=== PATIENT | male | born 1935 | race Caucasian/White ===

== ENCOUNTER → 2016-11-13 | Outpatient (CLI) | payer MEDICARE, OTHER ==
[~2016-11-13] MED LIST: BENA5TAB2; CETI1SYR3; DOXA1TAB38; EZET1TAB9; MONT4TAB7; OMEP10CA2; OXYC5CAP17; UBID30CA12; VENL25TA17
--- NOTE | 2016-11-14 11:51 | RADRPT ---
PROCEDURE: XR bilateral knees. CLINICAL INDICATION: Knee pain. TECHNIQUE: AP weightbearing, lateral weightbearing and sunrise views are available for review. COMPARISON: 09/05/2014 FINDINGS: There are bilateral total knee replacements. There is no evidence of loosening of the prosthesis. Th e osseous structures are normal in mineralization, architecture and alignment No acute fracture or d islocation is seen.No osseous lesions are identified. The soft tissues are unremarkable . IMPRESSION: Unremarkable bilateral total hip replacements. RPTAT: HGDB .Jacob Rojas MD, MD Date Time Electronically viewed and signed by .Jacob Rojas MD, MD on 11/14/2016 11:50 .B/
--- NOTE | 2016-11-14 11:53 | RADRPT ---
PROCEDURE: XR pelvis/right hip. CLINICAL INDICATION: Hip pain TECHNIQUE: AP pelvis/AP and lateral right hip views performed COMPARISON: No prior studies are available for comparison. FINDINGS: There is moderate bilateral hip osteoarthrosis. This is associated with joint space narrowing, subch ondral sclerosis and osteophytosis. There is normal mineralization. No fractures or osseous lesion s are identified. The soft tissues are unremarkable. IMPRESSION: Moderate bilateral hip osteoarthrosis. RPTAT: HGDB .Jacob Rojas MD, Date Time Electronically viewed and signed by .Jacob Rojas MD, on 11/14/2016 11:52 .B/
== END | disposition home or self-care (01) ==
LOC: HKI 13:13
PROVIDERS: ATTEND Orthopaedic Surgery
DX: M51.36 Other intervertebral disc degeneration, lumbar region (principal); M54.16 Radiculopathy, lumbar region; M48.06 Spinal stenosis, lumbar region; M25.561 Pain in right knee; M25.562 Pain in left knee; Z96.653 Presence of artificial knee joint, bilateral
CPT/HCPCS: 73502; 73562; G0463

== ENCOUNTER → 2016-11-19 | Outpatient (CLI) | payer MEDICARE, OTHER ==
--- NOTE | 2016-11-19 16:01 | RADRPT ---
PROCEDURE: Three-phase bone scan study CLINICAL INDICATION: 81-year-old patient with right knee and right hip pain, status post bilateral knee replacement. TECHNIQUE: Following the intravenous injection of 26.3 mCi of Tc-99m MDP, a three-phase bone scan study of the knees to bilaterally was obtained. COMPARISON: No prior bone scan studies. X-ray of the knees and hips bilaterally dated November 13, 2016. FINDINGS: Blood flow phase of the study demonstrates symmetrical distribution of activity in the knees bilater ally. Blood pooling images reveal symmetrical distribution of uptake in both knees and hips. Delayed images of both knees and hips demonstrate evidence of a bilateral knee replacement with mild ly asymmetrical increased activity noted in the region of the patella in the right knee. Spot images of both hips demonstrate minimal asymmetry in activity in the right acetabulum as compar ed to the left. Mildly increased activity is seen in the lower lumbar spine, at approximately L5-S1 level, to the ri ght of the midline. IMPRESSION: 1. Evidence of the right knee replacement with mildly increased tracer activity noted in the right patella. 2. Evidence of a left knee replacement with likely postsurgical changes. 3. Questionable minimal increase in activity in the right acetabulum and mildly increased activity at approximately L5-S1 lumbar spine, to the right of the midline, likely due to degenerative changes . 4. No other abnormal areas of increased uptake in the obtained limited views of both knees and hips . RPTAT: HH .Dionne Pereira MD, Date Time Electronically viewed and signed by .Dionne Pereira MD, on 11/19/2016 16:00 .L/
== END | disposition home or self-care (01) ==
LOC: NUC 09:44
PROVIDERS: ATTEND Orthopaedic Surgery
DX: M25.561 Pain in right knee (principal); M25.551 Pain in right hip; Z96.641 Presence of right artificial hip joint
CPT/HCPCS: 78315; A9503

== ENCOUNTER → 2016-12-02 | Outpatient (CLI) | payer MEDICARE, OTHER | END | disposition home or self-care (01) | LOC: HKI 11:01 | PROVIDERS: ATTEND Orthopaedic Surgery | DX: M51.36 Other intervertebral disc degeneration, lumbar region (principal); M54.16 Radiculopathy, lumbar region; M48.06 Spinal stenosis, lumbar region; M16.11 Unilateral primary osteoarthritis, right hip; Z96.653 Presence of artificial knee joint, bilateral; M25.551 Pain in right hip; M25.561 Pain in right knee | CPT/HCPCS: G0463 ==

== ENCOUNTER → 2017-01-04 | Outpatient (CLI) | payer MEDICARE, OTHER | END | disposition home or self-care (01) | LOC: HKI 09:18 | PROVIDERS: ATTEND Orthopaedic Surgery | DX: M16.11 Unilateral primary osteoarthritis, right hip (principal); M25.551 Pain in right hip; M25.561 Pain in right knee; Z96.653 Presence of artificial knee joint, bilateral | CPT/HCPCS: G0463 ==

== ENCOUNTER → 2017-02-17 | Outpatient (CLI) | payer MEDICARE, OTHER | END | disposition home or self-care (01) | LOC: HKI 10:17 | PROVIDERS: ATTEND Orthopaedic Surgery | DX: Z01.818 Encounter for other preprocedural examination (principal); M16.11 Unilateral primary osteoarthritis, right hip | CPT/HCPCS: G0463 ==

== ENCOUNTER 2017-02-25 05:34 | Inpatient (IN) | payer OTHER, MEDICARE ==
[2017-02-24 08:44] VITALS: BMI 35.1
[2017-02-25] VITALS (40 sets, daily range): BP systolic 86–143; BP diastolic 49–93; PULSE 63–110; RESP 10–18; Ht 193 cm; Wt 124.5 kg
[~2017-02-25] VITALS: Ht 193 cm; Wt 124.5 kg
[~2017-02-25 05:34] MED LIST changes: +EXPAREL NOTE (BUPIVICAINE LIPOSOMAL) XX SCH
[2017-02-25] MEDS ORDERED: PENT400T2 PO (05:54)
[2017-02-25] MEDS ORDERED: TAMS0.4C2 PO (05:54)
[2017-02-25] MEDS ORDERED: SENN15TA PO (05:54)
[2017-02-25] MEDS ORDERED: MUPI15CR9 TOP (05:54)
[2017-02-25] MEDS ORDERED: TRAM100T27 PO (05:54)
[2017-02-25] MEDS ORDERED: TRAM1TAB51 PO (05:54)
[2017-02-25] MEDS ORDERED: TEMA15CA PO (05:54)
[2017-02-25] MEDS ORDERED: VENL150C94 PO (05:54)
[2017-02-25] MEDS ORDERED: ATOR20TA38 PO (05:54)
[2017-02-25] MEDS ORDERED: SYMB80120 INHALATION (05:54)
[2017-02-25] MEDS ORDERED: TIOT18CA INHALATION (05:54)
[2017-02-25] MEDS ORDERED: RIVA20TA PO (05:54)
[2017-02-25] MEDS ORDERED: POTA20LI5 PO (05:54)
[2017-02-25] MEDS ORDERED: ESOM40CA PO (05:54)
[2017-02-25] MEDS ORDERED: MONT10TA24 PO (05:54)
[2017-02-25] MEDS ORDERED: ALLO100T PO (05:54)
[2017-02-25] MEDS ORDERED: SPIR100T31 PO (05:54)
[2017-02-25] MEDS ORDERED: GUAI-602 PO (05:54)
[2017-02-25] MEDS ORDERED: OXYM15SP34 NASAL (05:54)
[2017-02-25] MEDS ORDERED: METO-429 PO (05:54)
[2017-02-25] MEDS ORDERED: BUME0.5T PO (05:54)
[2017-02-25] MEDS ORDERED: LAMO150T PO (05:54)
[2017-02-25] MEDS ORDERED: TOBR5DRO14 BOTH EYES (05:54)
[2017-02-25] MEDS ORDERED: LAMO100T PO (05:54)
[2017-02-25] MEDS ORDERED: PAIN COCKTAIL-CEFUROXIME IRR ONE ×7 (06:00)
[2017-02-25] MEDS ORDERED: TRANEXAMIC ACID IV ONE (06:00)
[2017-02-25] MEDS ORDERED: oxyCODONE (CR) 10 MG TAB [oxyCONTIN] X1 DOSE PO ONE (06:00)
[2017-02-25] MEDS ORDERED: TRANEXAMIC ACID IVPB ONE ×3 (06:00→16:30)
[2017-02-25] MEDS ORDERED: PREGABALIN 300 MG PO X1 PO ONE (06:00)
[2017-02-25] MEDS ORDERED: SOD CHLORIDE 0.9% IV ONE (06:00)
[2017-02-25] MEDS ORDERED: CEFAZOLIN 2GM/50 ML (PMX) 50 ML X1 BEFORE INCISION IVPB ONE (06:00)
[2017-02-25] MEDS ORDERED: CELECOXIB 400 MG PO X1 DOSE PO ONE (06:00)
[2017-02-25] MEDS ORDERED: SOD CHLORIDE 0.9% IVPB ONE ×3 (06:00→16:30)
[2017-02-25] MEDS ORDERED: BUPIVACAINE LIPOSOME/PF 266 MG/20 ML VIAL INFIL ONE (06:00)
[2017-02-25] MEDS ORDERED: traMADOL 50 MG TAB X 1 DOSE PO ONE (06:00)
[2017-02-25 06:17] LABS: INR 1.2; PROTIME 15.3 Sec (12.2-14.2); PT RATIO 1.2
[2017-02-25 06:18] LABS: PARTIAL THROMBOPLASTIN TIME 33.9 Sec (25.0-35.0)
[2017-02-25] MEDS: LACTATED RINGER'S 1,000 ML IV SCH ×4 (06:22→18:09)
[2017-02-25] MEDS ORDERED: HEPARIN 1000 UNITS/ML 10 ML INJ ONE (07:02)
[2017-02-25] MEDS ORDERED: POLYMYXIN B 500000 UNIT INJ ONE (07:02)
[2017-02-25] MEDS ORDERED: VANCOMYCIN 1 GM INJ ONE (07:02)
--- NOTE | 2017-02-25 07:04 | HPN ---
Date/Time of Note Date/Time of Note DATE: 02/25/17 TIME: 07:04 Interval H&P Admission Note Pt. seen H&P reviewed: No system changes No change from H&P on 02/04/17 by KRISTINA Aaron MD February 25, 2017 07:04
[2017-02-25] MEDS ORDERED: FENTAnyl 50 MCG/ML VIAL ONE (07:13)
[2017-02-25] MEDS ORDERED: MIDAZOLAM 1 MG/ML 2 ML INJ ONE (07:39)
[2017-02-25] MEDS ORDERED: PHENYLephrine (100 MCG/ML) 5ML SYG ONE ×2 (07:40→08:33)
[2017-02-25] MEDS ORDERED: EPHEDrine SULFATE 50 MG/5 ML SYG ONE ×4 (07:50→13:03)
[2017-02-25] MEDS ORDERED: LIDOCAINE 2% (SDV) 5 ML INJ ONE (07:50)
[2017-02-25] MEDS ORDERED: PROPOFOL 100 ML ONE (07:50)
[2017-02-25] MEDS ORDERED: BACITRACIN 50000 UNITS INJ IRR ONE (08:15)
[2017-02-25] MEDS ORDERED: CEFAZOLIN 1 GM INJ ONE (09:34)
[2017-02-25] MEDS ORDERED: FAMOTIDINE 20 MG INJ ONE (09:36)
[2017-02-25] MEDS ORDERED: ONDANSETRON 4 MG INJ ONE (09:36)
[2017-02-25] MEDS ORDERED: DEXAMETHASONE 4 MG/ML 1 ML INJ ONE (09:36)
[2017-02-25] MEDS ORDERED: FENTAnyl 50 MCG/ML VIAL IV PRN (10:00)
[2017-02-25] MEDS ORDERED: MEPERIDINE 25 MG INJ IV PRN (10:00)
[2017-02-25] MEDS ORDERED: PROCHLORPERAZINE 10 MG INJ IV PRN (10:00)
[2017-02-25] MEDS ORDERED: ONDANSETRON 4 MG INJ IV PRN ×2 (10:00→10:30)
[2017-02-25] MEDS ORDERED: HYDROmorphONE (0.2 MG/ML) 10ML SYG IV PRN (10:00)
[2017-02-25] MEDS ORDERED: MAGNESIUM HYDROXIDE 30ML CUP PO PRN (10:30)
[2017-02-25] MEDS ORDERED: NA PHOSPHATE/BIPHOS 133 ML ENEMA PR PRN (10:30)
[2017-02-25] MEDS ORDERED: HYDROmorphONE 1 MG/ML SYG IV PRN (10:30)
[2017-02-25] MEDS ORDERED: NACL 0.9% 3 ML SYG IV SCH (10:30)
[2017-02-25] MEDS ORDERED: BISACODYL 10 MG SUPP PR PRN (10:30)
--- NOTE | 2017-02-25 10:31 | OPR ---
Date/Time of Note Date/Time of Note DATE: 02/25/17 TIME: 10:26 Operative Report Free Text/Dictation Dictation # [id number] Procedure Date: February 25, 2017 Preoperative Diagnosis Right Hip OA Postoperative Diagnosis Same Operation Performed Right Anterior MATT Surgeon: KRISTINA ESPINOZA MD occupational therapist assistant: ZEENAT PINO PA-C Anesthesia: general, spinal Anesthesiologist: CRISELDA NEELY MD Estimated Blood Loss: other Specimens Femoral Head Tubes/Drains Hemovac x 1 Complications: None Pt Condition Post Procedure: stable Disposition: PACU KRISTINA ESPINOZA MD February 25, 2017 10:31
[2017-02-25] MEDS: CEFAZOLIN 2 GM/50 ML (PMX) 50 ML IVPB SCH ×2 (11:01→18:03)
--- NOTE | 2017-02-25 11:05 | OPR ---
DATE OF OPERATION: 02/25/2017 PREOPERATIVE DIAGNOSIS: Right hip osteoarthritis. POSTOPERATIVE DIAGNOSIS: Right hip osteoarthritis. OPERATION PERFORMED: Right anterior total hip arthroplasty. SURGEON: Kristina Tovar MD MILK RUNNER: CLARISSA Fine COMPONENTS USED: DePuy size 58 mm Gription [place] cup, 58/36 neutral AltrX polyethylene liner, si ze 11 standard Actis stem, 36 plus 8.5 ceramic head. ANESTHESIA: Spinal plus general endotracheal intubation, plus periarticular injection. ANESTHESIOLOGIST: Ellen Wills MD ESTIMATED BLOOD LOSS: 400 mL. INTRAVENOUS FLUIDS: 2300 mL of crystalloid plus 125 mL of autologous Cell Saver blood. SPECIMENS: Femoral head. DRAINS: Hemovac x1. COMPLICATIONS: None. DISPOSITION: The patient tolerated the procedure well and was taken to the recovery room in stable condition. INDICATIONS: The patient is a 81-year-old gentleman who has had progressive worsening pain in the r ight hip with radiographic evidence of osteoarthritis. He has failed nonsurgical means of treatment to control his pain including activity modifications, pain medications and ambulatory assist device s. Despite these measures, he has had worsening pain, and I felt he would benefit from a total hip arthroplasty through an anterior approach. The risks, benefits, and alternatives of the procedure were explained in detail to the patient. I e xplained the risks of the surgery to include, but not be limited to: bleeding and possible need for blood transfusion; infection; pain; stiffness; neurovascular injury with possible numbness, weakness , and/or paralysis anywhere from the hip down to the toes; fracture; instability; dislocation; leg l ength inequality; wear and/or loosening of the prosthesis and possible need for future revision; blo od clots; pulmonary embolism; and anesthetic complications such as heart attack, stroke, GI bleed, p neumonia, and/or . Ample time was allowed for the patient to ask questions, all of which were addressed and answered. The patient understood the risks involved and wished to proceed. Informed c onsent was signed prior to the procedure. PROCEDURE: The patient's right hip was initialed with a marking pen in the preoperative area to iden tify the correct operative site. The patient was brought to the operating room and transferred from the [facility] to the [facility] where a spinal anesthetic was administered. The patient was then anesthetized and intubated. A Guzman catheter was placed. Both feet were placed into well padd ed boots which were then placed into the leg holders of the traction booms. A timeout was performed to confirm that the right side was the correct operative site. The patient was given 2 g of intrav enous Ancef within one hour prior to the procedure. The operative hip was prepped and draped in the usual sterile fashion. A 10 cm oblique incision was made over the anterior aspect of the hip and carried down through subcu taneous tissue and fat with sharp dissection. The tensor fascia giovani was incised along the length o f the wound. The tensor fascia muscle was retracted laterally and the sartorius medially. The anter ior circumflex vessels were identified and tied off with 2-0 silk suture and coagulated with the wumo samym [employer] reimbursement liaison. The rectus femoris was elevated off the anterior capsule and an anterior capsu lectomy performed. A femoral neck osteotomy was made and the head removed from the acetabulum. The acetabulum was denuded of cartilage circumferentially, as was the femoral head. Retractors were pl aced around the acetabulum. The remnants of the labrum and ligamentum teres were excised. I reamed the acetabulum to the medial wall and then went into an anatomic position and increased the reamer size in 2 mm increments until I got a good bite and was down to bleeding subchondral bone. The [place] cup was opened and impacted into the acetabulum and sat flush circumferentially, gettin g a good bite. C-arm imaging showed it had about 40 to 45 degrees of abduction and 20 degrees of ant eversion. The real liner was opened and impacted into the acetabulum and sat flush circumferentiall y. Attention was turned towards the femur. The operative leg was carefully lowered to the floor with the leg adducted. The foot was then exter linda rotated to approximately 110 degrees. A posteromedial release was performed to optimize expos ure. The femoral hook was placed underneath the proximal femur and the hydraulic lift was then used to elevate the femur up out of the wound. The tiffanie cutter osteotome was used to remove the remai arlene overhanging greater trochanter. The femur was then broached, going up in one size increments u ntil it sat flush with the neck cut and a stable fit was achieved. The trial neck and head were ass embled and reduced into the acetabulum. Fluoroscopic imaging showed the components to be in good pos ition and the leg lengths and offsets to be equal. At this point, the trial was dislocated and the trial broach removed. The canal was irrigated and d ried. The real stem was opened and impacted into the femur. The trunnion was irrigated and dried, a nd the real femoral head was impacted onto the trunnion, and reduced into the acetabulum. The soft tissues were infiltrated with a mixture of 150 mg of 0.5% bupivacaine, 8 mg of Duramorph, 3 00 mcg of epinephrine, 30 mg of Toradol, 100 mcg of clonidine, 750 mg of cefuroxime and 86 mL of nor mal saline, followed by an injection of 266 mg of liposomal bupivacaine. At this point the hip was irrigated with a mixture of Betadine/saline and then antibiotic saline with pulsatile lavage. A Hem ovac drain was placed in the deep portion of the wound and brought out the anterolateral thigh. Ther e was good hemostasis. The tensor fascia giovani was repaired with a running #1 Vicryl. The deep fat layer was irrigated and closed with 2-0 Stratafix and the subcutaneous layer closed with 3-0 Vicryl and the skin was closed with jason and then sealed with Dermabond. The drain was secured with 3-0 nylon. The sponge and needle counts were correct at the end of the case. The wound was covered with an occ lusive dressing. The patient was awakened, extubated, and taken to the recovery room in stable cond ition. Dictated By: KRISTINA RAO/KONRAD Conf#: [id number] DID#: [id number]
--- NOTE | 2017-02-25 11:06 | PN ---
Date/Time of Note Date/Time of Note DATE: 02/25/17 TIME: 11:04 Assessment/Plan Lines/Catheters IV Catheter Type (from Nrsg): Peripheral IV Assessment/Plan Assessment/Plan Stable in PACU, s/p right anterior MATT -continue Ancef -pain meds as needed -Coumadin 2mg at 1700 today -check AM labs including INR -SCDs BLE for DVT prophylaxis -OOB with PT -monitor drain -d/c howard in AM XR of the right hip is pending at this time Subjective 24 Hr Interval Summary Stable in PACU. Moving all extremities. Denies significant pain. Exam/Review of Systems Vital Signs Vitals Vital Signs Date Time Temp Pulse Resp B/P Pulse Ox O2 Delivery O2 Flow Rate FiO2 02/25/17 10:32 97.8 02/25/17 06:10 63 18 143/92 96 Room Air Exam Free Text/Dictation Dressing dry Incision clean, dry, and intact without redness or drainage 5/ Quadriceps, Tibialis Anterior, EHL, Gastroc, Soleus, Peroneals Normal sensation Palpable DT/PT, CR <2 sec No distal edema ZEENAT PINO PA-C February 25, 2017 11:06
--- NOTE | 2017-02-25 11:58 | CONS ---
DATE OF ADMISSION: 02/25/2017 DATE OF CONSULTATION: 02/25/2017 TYPE OF CONSULTATION: POSTOPERATIVE MEDICAL Dear Dr. Tovar: Thank you very much for allowing me to evaluate this 81-year-old male who just underwent right hip a rthroplasty. HISTORICAL EVENTS: As you well know, this patient has had progressive disabling pain involving his right hip, and for this elected to proceed with surgery. In recovery, he is comfortable without cou gh, wheezing, shortness of breath, nausea, vomiting, abdominal or chest pain. PAST MEDICAL HISTORY: 1. Dilated cardiomyopathy and related atrial fibrillation, history of congestive heart failure and mitral regurgitation. 2. Chronic renal insufficiency. 3. 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 4. Chronic obstructive pulmonary disease and sleep apnea. 5. History of hypertension. 6. Hyperlipidemia. 7. Prior smoker: MEDICATIONS: 1. Allopurinol 100 mg per day. 2. Atorvastatin 20 mg per day. 3. Bumetanide 1 mg half a tablet Wednesday, Wednesday and Wednesday as needed. 4. Metoprolol ER 50. 5. Nexium 40. 6. Pentoxifylline 400 mg b.i.d. 5. Spiriva. 6. Symbicort 7. Spironolactone 25 mg daily. 8. Xarelto 9. Tramadol p.r.n. ALLERGIES: SHELLFISH. SOCIAL HISTORY: . PHYSICAL EXAMINATION: GENERAL: Lethargic male in no acute distress. VITAL SIGNS: BP 122/80, pulse 70, respirations are 20, he was afebrile. EYES: Extraocular muscles were full. NOSE, MOUTH, AND THROAT: Normal. NECK: Supple, no JVD. LUNGS: Reduced breath sounds. HEART: Rhythm irregularly irregular at 72. ABDOMEN: Nontender. Liver and spleen were not palpable. No masses or tenderness were noted. EXTREMITIES: No edema. Calves nontender. NEUROLOGIC: No lateralizing motor weakness. IMPRESSION: 1. Stable postop right hip replacement. 2. History of atrial fibrillation with a controlled ventricular response. 3. History of hypertension, now normotensive. Continue to monitor BP throughout. 4. DVT prophylaxis will be needed and Coumadin prescribed. The dose adjusted daily. 5. History of sleep apnea. We will arrange for BiPAP. 6. Chronic obstructive pulmonary disease, inhaled bronchodilators will be continued. Dictated By: SRINI MARROQUIN/KONRAD Conf#: [id number] [facility]#: [id number]
[2017-02-25] MEDS: SALMETEROL/FLUTICASONE 250/50 INHA INH SCH ×2 (12:00→20:32)
--- NOTE | 2017-02-25 12:10 | RADRPT ---
PROCEDURE: XR Pelvis. CLINICAL INDICATION: Hip pain TECHNIQUE: Single AP view performed. COMPARISON: No prior studies are available for comparison. FINDINGS: There is a postoperative right total hip replacement. There are postoperative soft tissue changes. A drain is in place. There is no evidence of loosening of the prosthesis. No hardware failure is paulina ntified. There is moderate left hip osteoarthrosis. This is associated with joint space narrowing, subchondra l sclerosis and osteophytosis. There is normal osseous mineralization. No fractures or osseous les ions are identified. The soft tissues are unremarkable. IMPRESSION: Postoperative right total hip replacement Moderate left hip osteoarthrosis. RPTAT: HGDB .Jacob Rojas MD, Date Time Electronically viewed and signed by .Jacob Rojas MD, on 02/25/2017 12:09 .B/
--- NOTE | 2017-02-25 12:11 | RADRPT ---
PROCEDURE: XR right hip. CLINICAL INDICATION: Hip pain TECHNIQUE: AP view available for review. COMPARISON: None available FINDINGS: There is a postoperative right total hip replacement. There is no evidence of loosening of the prost hesis. There is no evidence of hardware failure. There is normal mineralization, architecture and al ignment. No fractures are identified. No osseous lesions are present. The joints are unremarkable . There are postoperative soft tissue changes. The drain is in place. IMPRESSION: Postoperative right total hip replacement Postoperative soft tissue changes. Drain in place. RPTAT: HGDB .Jacob Rojas MD, Date Time Electronically viewed and signed by .Jacob Rojas MD, on 02/25/2017 12:10 .B/
[2017-02-25] MEDS: traMADol 50 MG TAB PO SCH ×2 (12:20→18:09)
[2017-02-25] MEDS ORDERED: EPHEDrine SULFATE 50 MG/5 ML SYG IV PRN ×2 (13:30)
[2017-02-25 15:05] LABS: HEMATOCRIT 32.5 % (42.0-52.0); HEMOGLOBIN 9.9 g/dl (14.0-18.0)
--- NOTE | 2017-02-25 15:19 | RADRPT ---
PROCEDURE: XR Hip. CLINICAL INDICATION: Hip replacement. TECHNIQUE: Right hip x-rays, 14 intraoperative fluoroscopic views. Fluoroscopy time: 0.6 minutes . COMPARISON: 11/13/2016. FINDINGS: Surgical instrumentation for right hip arthroplasty is present. Hardware is well aligned. The pros thetic hip joint is intact. IMPRESSION: Surgical changes compatible with right hip arthroplasty. RPTAT: HLST .Ermelinda Lock MD, Date Time Electronically viewed and signed by .Ermelinda Lock MD, on 02/25/2017 15:18 .T/
[2017-02-25 15:25] LABS: POTASSIUM 4.5 mmol/L (3.5-5.1)
[2017-02-25 15:28] LABS: CREATININE 0.99 mg/dl (0.61-1.24)
[2017-02-25] MEDS ORDERED: BACITRACIN 50000 UNITS INJ ONE (15:52)
[2017-02-25] MEDS ORDERED: WARFARIN 1 MG TAB PO ONE (17:00)
[2017-02-25] MEDS: PANTOPRAZOLE (EC) 40 MG TAB PO SCH (18:01)
[2017-02-25] MEDS: TAMSULOSIN (SR) 0.4 MG CAP PO SCH (20:32)
[2017-02-25] MEDS: MONTELUKAST 10 MG TAB PO SCH (20:32)
[2017-02-25] MEDS: DOCUSATE SODIUM 100 MG CAP PO SCH (20:32)
[2017-02-25] MEDS: ATORVASTATIN 20 MG TAB PO SCH (20:33)
[2017-02-25] MEDS: METOPROLOL 50 MG TAB PO SCH (20:33)
[2017-02-26] MEDS: traMADol 50 MG TAB PO SCH ×5 (00:12→22:54)
[2017-02-26 00:15] VITALS: BP 111/69; PULSE 102; RESP 18
[2017-02-26] MEDS: HYDROCODONE/APAP (5/325) TAB PO PRN ×4 (01:59→20:23)
[2017-02-26] MEDS: LACTATED RINGER'S 1,000 ML IV SCH ×5 (02:00→21:12)
[2017-02-26] MEDS: CEFAZOLIN 2 GM/50 ML (PMX) 50 ML IVPB SCH (02:05)
[2017-02-26 04:55] LABS: HEMATOCRIT 28.3 % (42.0-52.0); HEMOGLOBIN 8.5 g/dl (14.0-18.0)
[2017-02-26 05:13] LABS: POTASSIUM 4.6 mmol/L (3.5-5.1)
[2017-02-26 05:15] LABS: CREATININE 0.97 mg/dl (0.61-1.24)
[2017-02-26 05:16] LABS: CALCIUM 8.1 mg/dl (8.4-10.2); INR 1.24; PROTIME 15.7 Sec (12.2-14.2); PT RATIO 1.2
[2017-02-26 05:22] LABS: MAGNESIUM 1.7 mg/dl (1.7-2.5); PHOSPHORUS 3.4 mg/dl (2.5-4.9)
[2017-02-26] MEDS: PANTOPRAZOLE (EC) 40 MG TAB PO SCH ×2 (05:40→17:31)
[2017-02-26 08:06] VITALS: BP 91/60; RESP 20
[2017-02-26] MEDS: METOPROLOL 50 MG TAB PO SCH ×2 (08:14→20:24)
[2017-02-26] MEDS: ALLOPURINOL 100 MG TAB PO SCH (08:36)
[2017-02-26] MEDS: TAMSULOSIN (SR) 0.4 MG CAP PO SCH ×2 (08:36→20:22)
[2017-02-26] MEDS: LAMOTRIGINE 100 MG TAB PO SCH (08:36)
[2017-02-26] MEDS: SALMETEROL/FLUTICASONE 250/50 INHA INH SCH ×2 (08:36→20:21)
[2017-02-26] MEDS: VENLAFAXINE (XR) 75 MG CAP PO SCH (08:37)
[2017-02-26] MEDS: DOCUSATE SODIUM 100 MG CAP PO SCH ×2 (08:37→20:22)
[2017-02-26 08:47] LABS: ADD UMIC YES; URINE BILIRUBIN (Dip) NEGATIVE (NEGATIVE); URINE BLOOD (Dip) NEGATIVE (NEGATIVE); URINE COLOR YELLOW (YELLOW); URINE GLUCOSE (Dip) NEGATIVE (NEGATIVE); URINE KETONES (Dip) NEGATIVE (NEGATIVE); URINE LEUKOCYTE ESTERASE (Dip) NEGATIVE (NEGATIVE); URINE NITRITE (Dip) NEGATIVE (NEGATIVE); URINE TOTAL PROTEIN (Dip) 1+ (NEGATIVE); URINE UROBILINOGEN (Dip) 1.0 E.U./dL (0.1-1.0)
[2017-02-26] MEDS ORDERED: SPIRONOLACTONE 50 MG TAB PO SCH (09:00)
[2017-02-26] MEDS ORDERED: POTASSIUM CHLORIDE 20 MEQ POWDER FOR ORAL SOLN PO SCH (09:00)
[2017-02-26 09:21] LABS: BACTERIA,URINE FEW
[2017-02-26 09:48] LABS: MAGNESIUM 1.7 mg/dl (1.7-2.5)
--- NOTE | 2017-02-26 09:59 | PN ---
Date/Time of Note Date/Time of Note DATE: 02/26/17 TIME: 09:57 Assessment/Plan Lines/Catheters IV Catheter Type (from Nrsg): Peripheral IV Guzman in Place (from Nrsg): Yes Assessment/Plan Assessment/Plan Stable POD #1, s/p right anterior MATT -d/c Ancef -pain meds as needed -coumadin 2.5mg at 1700 today -SCDs BLE for DVT prophyolaxis -OOB with PT -drain removed -check AM labs -discharge planning. Will plan to go to [facility] upon discharge Subjective 24 Hr Interval Summary No acute overnight events. Denies significant pain. Drain output was moderate. Denies dizziness or lightheadedness. H&H Stable. Would like to go to [facility] upon discharge. Exam/Review of Systems Vital Signs Vitals Vital Signs Date Time Temp Pulse Resp B/P Pulse Ox O2 Delivery O2 Flow Rate FiO2 02/26/17 08:06 98.2 70 20 91/60 90 02/26/17 03:06 3.0 02/26/17 00:15 CPAP Intake and Output 02/25/17 02/25/17 02/26/17 15:00 23:00 07:00 Intake Total 2662.5 ml 962.5 ml 1240 ml Output Total 750 ml 600 ml 650 ml Balance 1912.5 ml 362.5 ml 590 ml Exam Free Text/Dictation Hemovac: 400cc Dressing dry Incision clean, dry, and intact without redness or drainage 02/05 Quadriceps, Tibialis Anterior, EHL, Gastroc, Soleus, Peroneals Normal sensation Palpable DT/PT, CR <2 sec No distal edema Results Result Diagram: 02/26/1741902/26/17419 ZEENAT PINO PA-C February 26, 2017 09:59
[2017-02-26 11:20] LABS: THYROID STIMULATING HORMONE 0.201 MIU/L (0.465-4.680)
--- NOTE | 2017-02-26 11:32 | RADRPT ---
Vent Rate: 108 bpm RR Interval: 0 msec UT Interval: 0 msec QRS Duration: 108 msec QT Interval: 384 msec QTC Interval: 514 msec P-R-T [place]: 0 - -10 - 172 degrees Atrial fibrillation with rapid ventricular response with premature ventricular or aberrantly conducted complexes Nonspecific T wave abnormality , probably digitalis effect Abnormal ECG Electronically Signed By: Adonay Phillip [id number]
--- NOTE | 2017-02-26 11:44 | PDOCDIS ---
Discharge Instructions DIAGNOSIS Discharge Diagnosis: s/p right anterior MATT CONDITION Patient Condition: Good HOME CARE INSTRUCTIONS: Diet Instructions: RegularSpecial Diet: REGULAR ACTIVITY: Activity Restrictions: Slowly Increase Activity Rest between Activity Avoid heavy lifting Do not operate Machinery Do not operate Power Tool Avoid Heavy Housework Keep Limb Elevated Bathing Restrictions: Shower FOLLOW UP/APPOINTMENTS Appointments follow up in the office on 03/08/17 OTHER ORDERS: Other Orders: S/P Anterior MATT Physical Therapy: Three times per week at home x 3 weeks Daily in Rehab/SNF WB STATUS: WBAT Strengthening exercises for both upper and un-operated lower extremities. 1. Gait training with front wheeled walker 2. Wide base gait, no pivot turns. 3. Abductor strengthening. 4. Quadriceps and hamstring strengthening. 5. May switch to cane in contra lateral hand 6 weeks after surgery. 6. Physical Therapy can open case if nursing is not available. 7. Ice Packs while at rest to surgical wound for 20 minutes, 3 times/day. 8. Patient requires mobile SCDs to reduce risk of developing DVT following MATT. Patient will use the mobile SCDs for 30 days postoperatively. Hip Precautions: no posterior hip precautions Bathing assistance by home health aide twice weekly if Medicare patient. Occupational Therapy: Evaluation for assistive devices and ADL training. Wound Care: Keep incision dry & covered with Tegaderm until first visit with Dr. Tovar Anticoagulation Orders: Adjusted Coumadin dose x 3 weeks from the date of surgery. Target INR 1.7-2.0. Prothrombin time & INR are done every Wednesday and for three weeks post- operatively. Please call and leave a message with Isabela @ [phone] with results the same day before the close of business. The patient should not eat green leafy vegetables. Follow-up: Call for an appointment with Dr. Tovar in 1 week after discharged from hospital at . DME Orders: FWAldo, 3-in-1 Commode, Mobile SCDs ZEENAT PINO PA-C February 26, 2017 11:44
[2017-02-26] MEDS ORDERED: WARF1TAB47 PO (11:46)
[2017-02-26] MEDS ORDERED: WARF2TAB PO (11:46)
--- NOTE | 2017-02-26 13:03 | CONS ---
Date/Time of Note Date/Time of Note DATE: 02/26/17 TIME: 13:00 Assessment/Plan Assessment/Plan Additional Assessment/Plan 1. S/P right hip sugery doing well. 2. Atrial fibrillation with variable ventric response, asx 3. Hx CHF, IV was slowed and resume aldactone and Bumex 1-2 d 4. Prostatism, howard removed earlier, will check bladder scan Consultation Date/Type/Reason Admit Date/Time February 25, 2017 at 05:34 Initial Consult Date Detailed Summary Respiratory: No cough, No shortness of breath Cardiovascular: No chest pain Gastrointestinal: no complaints Genitourinary: no complaints, other (howard just removed) Musculoskeletal: bone/joint pain (mild right hip pain) Exam/Review of Systems Vital Signs Vitals Vital Signs Date Time Temp Pulse Resp B/P Pulse Ox O2 Delivery O2 Flow Rate FiO2 02/26/17 08:45 Nasal Cannula 3.0 02/26/17 08:06 98.2 70 20 91/60 90 Intake and Output 02/25/17 02/25/17 02/26/17 15:00 23:00 07:00 Intake Total 2662.5 ml 962.5 ml 1240 ml Output Total 750 ml 600 ml 650 ml Balance 1912.5 ml 362.5 ml 590 ml Exam Neck: No jvd Respiratory: clear to auscultation Cardiovascular: irregular rhythm (rate is variable 40-110 ) Gastrointestinal: soft Extremities: No edema (and no calf tend) Results Result Diagram: 02/26/17 0420 02/26/17 0420 Results 24 hrs Laboratory Tests Test 02/25/17 14:55 02/25/17 17:00 02/26/17 04:20 Hemoglobin 9.9 L 8.5 L Hematocrit 32.5 L 28.3 L Sodium Level 141 140 Potassium Level 4.5 4.6 Chloride Level 105 104 Carbon Dioxide Level 26 27 Anion Gap 15 14 Blood Urea Nitrogen 22 H 21 H Creatinine 0.99 0.97 Glucose Level 133 116 Calcium Level 8.0 L 8.1 L Urine Color YELLOW Urine Clarity CLEAR Urine pH 6.0 Urine Specific [place] >=1.030 H Urine Ketones NEGATIVE Urine Nitrite NEGATIVE Urine Bilirubin NEGATIVE Urine Urobilinogen 1.0 E.U./dL Urine Leukocyte Esterase NEGATIVE Urine Microscopic RBC 2-5 Urine Microscopic WBC 0-2 Urine Epithelial Cells FEW Urine Bacteria FEW Urine Hemoglobin NEGATIVE Urine Glucose NEGATIVE Urine Total Protein 1+ H Prothrombin Time 15.7 H Prothrombin Time Ratio 1.2 INR International Normalized Ratio 1.24 Phosphorus Level 3.4 Magnesium Level 1.7 Thyroid Stimulating Hormone (TSH) 0.201 L Medications Medications Current Medications Lactated Ringer's (Lr) 1,000 ml @ 100 mls/hr Q10H IV Last administered on 02/25 18:00; Admin Dose 100 MLS/HR; Start 02/25/17 at 06:00 Miscellaneous Information 1 ea NOTE XX ; Start 02/24/17 at 12:00; Stop 02/28/17 at 11:59 Allopurinol (Zyloprim) 100 mg DAILY PO Last administered on 02/26/17 08:36; Admin Dose 100 MG; Start 02/26/17 at 09:00 Atorvastatin Calcium (Lipitor) 20 mg QHS PO Last administered on 02/25/17 20: 33; Admin Dose 20 MG; Start 02/25/17 at 21:00 Lamotrigine (Lamictal) 100 mg DAILY PO Last administered on 02/26/17 08:36; Admin Dose 100 MG; Start 02/26/17 at 09:00 Metoprolol Tartrate (Lopressor) 50 mg BID PO ; Start 02/25/17 at 21:00 Montelukast Sodium (Singulair) 10 mg QHS PO Last administered on 02/25/17 20: 32; Admin Dose 10 MG; Start 02/25/17 at 21:00 Tamsulosin HCl (Flomax) 0.4 mg DAILY PO Last administered on 02/26/17 08:36; Admin Dose 0.4 MG; Start 02/26/17 at 09:00 Venlafaxine HCl 150 mg 150 mg DAILY PO Last administered on 02/26/17 08:37; Admin Dose 150 MG; Start 02/26/17 at 09:00 Lactated Ringer's (Lr) 1,000 ml @ 125 mls/hr Q8H IV Last administered on 06:44; Admin Dose 125 MLS/HR; Start 02/25/17 at 10:24 Tramadol HCl (Ultram) 50 mg Q6 PO Last administered on 02/26/17 11:31; Admin Dose 50 MG; Start 02/25/17 at 12:00; Stop 02/28/17 at 11:59 Acetaminophen/ Hydrocodone Bitart ([place] (5/325)) 1 tab Q4H PRN PO PAIN LEVEL 1 -3; Start 02/25/17 at 10:30 Acetaminophen/ Hydrocodone Bitart ([place] (5/325)) 2 tab Q4H PRN PO PAIN LEVEL 4 -7 Last administered on 02/26/17 08:39; Admin Dose 2 TAB; Start 02/25/17 at 10: 30 Hydromorphone HCl (Dilaudid) 1 mg Q3H PRN IV PAIN LEVEL 8-10; Start 02/25/17 at 10:30 Ondansetron HCl (Zofran Inj) 4 mg Q6H PRN IV NAUSEA AND/OR VOMITING; Start at 10:30 Bisacodyl (Dulcolax Supp) 10 mg Q12H PRN [place] CONSTIPATION; Start 02/25/17 at 10: 30 Magnesium Hydroxide (Milk Of Mag) 30 ml BID PRN PO CONSTIPATION; Start at 10:30 Sodium Biphosphate/ Sodium Phosphate (Fleet Enema) 133 ml DAILY PRN [place] CONSTIPATION; Start 02/25/17 at 10:30 Docusate Sodium (Colace) 100 mg BID PO Last administered on 02/26/17 08:37; Admin Dose 100 MG; Start 02/25/17 at 21:00 Diphenhydramine HCl (Benadryl) 25 mg Q6H PRN PO PRURITUS; Start 02/25/17 at 10: 30 Pantoprazole (Protonix Tab) 40 mg BID@06,18 PO Last administered on 02/26/17 05:40; Admin Dose 40 MG; Start 02/25/17 at 18:00 Salmeterol Xinafoate/ Fluticasone (Advair 250/50 Diskus) 1 inh BID INH Last administered on 02/26/17 08:36; Admin Dose 1 INH; Start 02/25/17 at 12:00 Tamsulosin HCl (Flomax) 0.4 mg HS PO Last administered on 02/25/17 20:32; Admin Dose 0.4 MG; Start 02/25/17 at 21:00 Warfarin Sodium 2.5 mg 2.5 mg ONCE ONCE PO ; Start 02/26/17 at 17:00; Stop at 17:01 Magnesium Sulfate (Magnesium Sulfate 2 Gm/50 ml) 50 ml @ 25 mls/hr ONCE ONCE IVPB ; Start 02/26/17 at 13:00; Stop 02/26/17 at 14:59; Status UNSRINI FAULKNER MD February 26, 2017 13:03
[2017-02-26] MEDS ORDERED: MAGNESIUM SULFATE 2 GM/50 ML 50 ML IVPB ONE (14:30)
[2017-02-26] MEDS ORDERED: WARFARIN 2.5 MG TAB PO ONE (17:00)
[2017-02-26 19:00] VITALS: BP 137/59; RESP 18
[2017-02-26 20:14] VITALS: BP 135/60; PULSE 82; RESP 18
[2017-02-26] MEDS: ATORVASTATIN 20 MG TAB PO SCH (20:23)
[2017-02-26] MEDS: MONTELUKAST 10 MG TAB PO SCH (20:24)
[2017-02-26] MEDS: DIPHENHYDRAMINE 25 MG CAP PO PRN (22:54)
[2017-02-27 05:53] LABS: HEMATOCRIT 28.3 % (42.0-52.0); HEMOGLOBIN 8.7 g/dl (14.0-18.0)
[2017-02-27] MEDS: traMADol 50 MG TAB PO SCH ×3 (06:00→19:41)
[2017-02-27] MEDS: PANTOPRAZOLE (EC) 40 MG TAB PO SCH ×2 (06:09→19:42)
[2017-02-27 06:22] LABS: INR 1.26; PROTIME 15.9 Sec (12.2-14.2); PT RATIO 1.2
[2017-02-27 06:24] LABS: POTASSIUM 4.4 mmol/L (3.5-5.1)
[2017-02-27 06:27] LABS: CALCIUM 8.3 mg/dl (8.4-10.2); CREATININE 1.15 mg/dl (0.61-1.24)
[2017-02-27 06:33] LABS: MAGNESIUM 2.1 mg/dl (1.7-2.5)
[2017-02-27] MEDS: SALMETEROL/FLUTICASONE 250/50 INHA INH SCH ×2 (08:21→21:11)
[2017-02-27 08:38] VITALS: BP 138/80; RESP 20
[2017-02-27] MEDS: DOCUSATE SODIUM 100 MG CAP PO SCH ×2 (10:29→21:10)
[2017-02-27] MEDS: VENLAFAXINE (XR) 75 MG CAP PO SCH (10:30)
[2017-02-27] MEDS: LAMOTRIGINE 100 MG TAB PO SCH (10:30)
[2017-02-27] MEDS: ALLOPURINOL 100 MG TAB PO SCH (10:30)
[2017-02-27] MEDS: METOPROLOL 50 MG TAB PO SCH ×2 (10:31→21:11)
[2017-02-27] MEDS: TAMSULOSIN (SR) 0.4 MG CAP PO SCH ×2 (10:38→21:10)
--- NOTE | 2017-02-27 11:41 | PN ---
Date/Time of Note Date/Time of Note DATE: 02/27/17 TIME: 11:39 Assessment/Plan Lines/Catheters IV Catheter Type (from Nrsg): Saline Lock Guzman in Place (from Nrsg): No Assessment/Plan Assessment/Plan POD #2, s/p right anterior MATT -pain meds as needed. Only use tramadol as baseline and 1 norco tablet for breakthrough pain -coumdin dosed to be given today -OOB with PT -dressing changed -check AM labs -will check doppler to r/o DVT RLE -will plan for SNF transfer upon discharge Subjective 24 Hr Interval Summary Denies significant hip pain. Had some confusion overnight from pain medication but is more alert today. Transferred closer to nursing station for observation. H&H low but will monitor for now. Progressing with PT. Will plan for SNF upon discharge Exam/Review of Systems Vital Signs Vitals Vital Signs Date Time Temp Pulse Resp B/P Pulse Ox O2 Delivery O2 Flow Rate FiO2 02/27/17 08:38 97.8 90 20 138/80 91 02/27/17 00:05 3.0 02/26/17 21:59 Nasal Cannula Intake and Output 02/26/17 02/26/17 02/27/17 15:00 23:00 07:00 Intake Total 1730 ml 1300 ml Output Total 0 ml 500 ml Balance 1730 ml 800 ml Exam Free Text/Dictation Dressing dry Incision clean, dry, and intact without redness or drainage 02/05 Quadriceps, Tibialis Anterior, EHL, Gastroc, Soleus, Peroneals Normal sensation Palpable DT/PT, CR <2 sec No distal edema Results Result Diagram: 02/27/17 0440 02/27/17 0440 ZEENAT PINO PA-C February 27, 2017 11:41
--- NOTE | 2017-02-27 13:17 | RADRPT ---
PROCEDURE: Ultrasound of the right lower extremity venous system. CLINICAL INDICATION: Right leg pain and swelling, deep venous thrombosis TECHNIQUE: Betts scale with and without compression, color doppler, spectral doppler of the venous system of the right lower extremity was performed. Venous augmentation maneuvers were utilized. COMPARISON: No prior studies are available for comparison. FINDINGS: Common femoral vein: Patent. Femoral vein: Patent. Popliteal vein: Patent. Calf veins: Patent. No soft tissue abnormalities are identified. IMPRESSION: No evidence of a deep vein thrombosis within the right lower extremity. RPTAT: AADD .Carter Ware MD, MD Date Time Electronically viewed and signed by .Carter Ware MD, on 02/27/2017 13:17 .B/
[2017-02-27] MEDS ORDERED: WARFARIN 3 MG TAB PO ONE (17:00)
--- NOTE | 2017-02-27 17:21 | CONS ---
Date/Time of Note Date/Time of Note DATE: 02/27/17 TIME: 17:19 Assessment/Plan Assessment/Plan Additional Assessment/Plan 1. S/P right hip sugery - lower ext trace edema, difficult moving due to weight , continue rehab, d/c planning to [facility] 2. Atrial fibrillation with variable ventric response, asx - anticoagulation per dr haney, check inr 3. Hx CHF, IV was slowed and resume aldactone and Bumex 1-2 d, can d/c with meds 4. Prostatism, howard removed earlier, will check bladder scan 5. d/c in 2-3 days Consultation Date/Type/Reason Admit Date/Time February 25, 2017 at 05:34 Initial Consult Date 24 HR Interval Summary Constitutional: improved, no complaints Exam/Review of Systems Vital Signs Vitals Vital Signs Date Time Temp Pulse Resp B/P Pulse Ox O2 Delivery O2 Flow Rate FiO2 02/27/17 16:48 3.0 02/27/17 08:38 97.8 90 20 138/80 91 02/27/17 08:00 Nasal Cannula Intake and Output 02/26/17 02/26/17 02/27/17 15:00 23:00 07:00 Intake Total 1730 ml 1300 ml Output Total 0 ml 500 ml Balance 1730 ml 800 ml Exam Constitutional: alert, oriented, well developed Psych: no complaints Head: atraumatic, normocephalic Eyes: EOMI, nl conjunctiva Neck: supple Respiratory: diminished breath sounds Cardiovascular: irregular rhythm, systolic murmur Gastrointestinal: nl liver, spleen, soft Extremities: normal pulses Neurological: BANKING CONSULTANT II-XII intact Results Result Diagram: 02/27/17 0440 02/27/17 0440 Results 24 hrs Laboratory Tests Test 02/27/17 04:40 Hemoglobin 8.7 L Hematocrit 28.3 L Prothrombin Time 15.9 H Prothrombin Time Ratio 1.2 INR International Normalized Ratio 1.26 Sodium Level 140 Potassium Level 4.4 Chloride Level 102 Carbon Dioxide Level 29 Anion Gap 13 Blood Urea Nitrogen 24 H Creatinine 1.15 Glucose Level 110 Calcium Level 8.3 L Phosphorus Level 3.0 Magnesium Level 2.1 Medications Medications Current Medications Miscellaneous Information 1 ea NOTE XX ; Start 02/24/17 at 12:00; Stop 02/28/17 at 11:59 Allopurinol (Zyloprim) 100 mg DAILY PO Last administered on 02/27/17 10:30; Admin Dose 100 MG; Start 02/26/17 at 09:00 Atorvastatin Calcium (Lipitor) 20 mg QHS PO Last administered on 02/26/17 20: 23; Admin Dose 20 MG; Start 02/25/17 at 21:00 Lamotrigine (Lamictal) 100 mg DAILY PO Last administered on 02/27/17 10:30; Admin Dose 100 MG; Start 02/26/17 at 09:00 Metoprolol Tartrate (Lopressor) 50 mg BID PO Last administered on 02/27/17 10: 31; Admin Dose 50 MG; Start 02/25/17 at 21:00 Montelukast Sodium (Singulair) 10 mg QHS PO Last administered on 02/26/17 20: 24; Admin Dose 10 MG; Start 02/25/17 at 21:00 Tamsulosin HCl (Flomax) 0.4 mg DAILY PO Last administered on 02/27/17 10:38; Admin Dose 0.4 MG; Start 02/26/17 at 09:00 Venlafaxine HCl 150 mg 150 mg DAILY PO Last administered on 02/27/17 10:30; Admin Dose 150 MG; Start 02/26/17 at 09:00 Lactated Ringer's (Lr) 1,000 ml @ 75 mls/hr [id number] IV Last administered on 06:44; Admin Dose 125 MLS/HR; Start 02/25/17 at 10:24 Tramadol HCl (Ultram) 50 mg Q6 PO Last administered on 02/27/17 14:37; Admin Dose 50 MG; Start 02/25/17 at 12:00; Stop 02/28/17 at 11:59 Ondansetron HCl (Zofran Inj) 4 mg Q6H PRN IV NAUSEA AND/OR VOMITING; Start at 10:30 Bisacodyl (Dulcolax Supp) 10 mg Q12H PRN [place] CONSTIPATION; Start 02/25/17 at 10: 30 Magnesium Hydroxide (Milk Of Mag) 30 ml BID PRN PO CONSTIPATION; Start at 10:30 Sodium Biphosphate/ Sodium Phosphate (Fleet Enema) 133 ml DAILY PRN [place] CONSTIPATION; Start 02/25/17 at 10:30 Docusate Sodium (Colace) 100 mg BID PO Last administered on 02/27/17 10:29; Admin Dose 100 MG; Start 02/25/17 at 21:00 Diphenhydramine HCl (Benadryl) 25 mg Q6H PRN PO PRURITUS Last administered on 22:54; Admin Dose 25 MG; Start 02/25/17 at 10:30 Pantoprazole (Protonix Tab) 40 mg BID@,18 PO Last administered on 02/27/17 06:09; Admin Dose 40 MG; Start 02/25/17 at 18:00 Salmeterol Xinafoate/ Fluticasone (Advair 250/50 Diskus) 1 inh BID INH Last administered on 02/27/17 08:21; Admin Dose 1 INH; Start 02/25/17 at 12:00 Tamsulosin HCl (Flomax) 0.4 mg HS PO Last administered on 02/26/17 20:22; Admin Dose 0.4 MG; Start 02/25/17 at 21:00 Acetaminophen (Tylenol Tab) 650 mg Q4H PRN PO PAIN AND OR ELEVATED TEMP; Start 02/27/17 at 12:00 ALEJANDRA WOLFF MD February 27, 2017 17:21
[2017-02-27 20:05] VITALS: BP 105/61; RESP 20
[2017-02-27 21:10] VITALS: BP 120/66; PULSE 66
[2017-02-27] MEDS: ATORVASTATIN 20 MG TAB PO SCH (21:10)
[2017-02-27] MEDS: MONTELUKAST 10 MG TAB PO SCH (21:10)
[2017-02-28] MEDS ORDERED: traZODone 50 MG TAB PO ONE (01:00)
[2017-02-28] MEDS: ACETAMINOPHEN 325 MG TAB PO PRN (01:01)
[2017-02-28 02:31] LABS: ADD UMIC YES; URINE BLOOD (Dip) NEGATIVE (NEGATIVE); URINE COLOR DK. YELLOW (YELLOW); URINE GLUCOSE (Dip) NEGATIVE (NEGATIVE); URINE KETONES (Dip) NEGATIVE (NEGATIVE); URINE LEUKOCYTE ESTERASE (Dip) NEGATIVE (NEGATIVE); URINE NITRITE (Dip) NEGATIVE (NEGATIVE); URINE TOTAL PROTEIN (Dip) 1+ (NEGATIVE); URINE UROBILINOGEN (Dip) 1.0 E.U./dL (0.1-1.0)
[2017-02-28 02:37] LABS: URINE BILIRUBIN (Dip) NEGATIVE (NEGATIVE)
[2017-02-28 02:44] LABS: SQUAMOUS EPITHELIAL CELL,UR FEW
[2017-02-28 02:45] LABS: BACTERIA,URINE OCCASIONAL; MUCUS,URINE OCCASIONAL
[2017-02-28] MEDS: traMADol 50 MG TAB PO SCH ×2 (05:52)
[2017-02-28 06:05] LABS: ADD SCAN DIFF NO
[2017-02-28] MEDS: PANTOPRAZOLE (EC) 40 MG TAB PO SCH ×2 (06:27→17:29)
[2017-02-28 06:31] LABS: ALBUMIN 2.7 g/dl (3.3-4.9)
[2017-02-28 06:32] LABS: POTASSIUM 4.2 mmol/L (3.5-5.1)
[2017-02-28 06:34] LABS: ALBUMIN/GLOBULIN RATIO 0.87; BASOPHILS % 0.4 % (0.0-2.0); BILIRUBIN,INDIRECT 0.7 mg/dl (0-1.1); BILIRUBIN,TOTAL 0.7 mg/dl (0.2-1.3); CREATININE 1.06 mg/dl (0.61-1.24); EOSINOPHILS # 0.2 10^3/ul (0.0-0.5); EOSINOPHILS % 2.7 % (0.0-7.0); HEMATOCRIT 26.6 % (42.0-52.0); HEMOGLOBIN 8.1 g/dl (14.0-18.0); INR 1.27; LYMPHOCYTES # 0.7 10^3/ul (0.8-2.9); LYMPHOCYTES % 8.9 % (15.0-51.0); MEAN CORPUSCULAR HEMOGLOBIN 29.9 pg (29.0-33.0); MEAN CORPUSCULAR HGB CONC 30.5 g/dl (32.0-37.0); MEAN CORPUSCULAR VOLUME 98.2 fl (82.0-101.0); MEAN PLATELET VOLUME 10.6 fl (7.4-10.4); MONOCYTE # 0.9 10^3/ul (0.3-0.9); MONOCYTES % 10.5 % (0.0-11.0); NEUTROPHIL # 6.3 10^3/ul (1.6-7.5); NEUTROPHILS % 77.1 % (39.0-77.0); PLATELET COUNT 146 10^3/UL (140-415); PT RATIO 1.3; RED BLOOD COUNT 2.71 10^6/ul (4.70-6.10); RED CELL DISTRIBUTION WIDTH 13.4 % (11.5-14.5); TOTAL PROTEIN 5.8 g/dl (6.1-8.1); WHITE BLOOD COUNT 8.2 10^3/ul (4.8-10.8)
[2017-02-28 06:35] LABS: CALCIUM 8.2 mg/dl (8.4-10.2); PHOSPHORUS 2.6 mg/dl (2.5-4.9)
[2017-02-28 07:22] VITALS: BP 128/57; RESP 19
[2017-02-28] MEDS: SALMETEROL/FLUTICASONE 250/50 INHA INH SCH ×2 (08:48→20:19)
[2017-02-28] MEDS: VENLAFAXINE (XR) 75 MG CAP PO SCH (08:49)
[2017-02-28] MEDS: DOCUSATE SODIUM 100 MG CAP PO SCH ×2 (08:49→20:19)
[2017-02-28] MEDS: ALLOPURINOL 100 MG TAB PO SCH (08:49)
[2017-02-28] MEDS: LAMOTRIGINE 100 MG TAB PO SCH (08:49)
[2017-02-28] MEDS: TAMSULOSIN (SR) 0.4 MG CAP PO SCH ×2 (08:49→20:19)
[2017-02-28] MEDS: METOPROLOL 50 MG TAB PO SCH ×2 (08:50→20:20)
--- NOTE | 2017-02-28 08:53 | PN ---
Date/Time of Note Date/Time of Note DATE: 02/28/17 TIME: 08:49 Assessment/Plan Lines/Catheters IV Catheter Type (from Nrsg): Saline Lock Guzman in Place (from Nrsg): No Assessment/Plan Assessment/Plan POD #3, s/p right anterior MATT -pain meds as needed -Coumadin to dose at 1700 today -SCDs BLE for DVT prophylaxis -OOB with PT -dressing changed -check AM labs H&H low but will continue to monitor -will need rehab/SNF placement upon discharge Subjective 24 Hr Interval Summary No acute overnight events. Denies significant hip pain. Doppler negative for DVT. Still having confusion after tramadol. Will hold off all narcotic meds and use tylenol for pain. H&H low but will continue to monitor. VSS, afebrile. Will need rehab/SNF placement upon discharge. Exam/Review of Systems Vital Signs Vitals Vital Signs Date Time Temp Pulse Resp B/P Pulse Ox O2 Delivery O2 Flow Rate FiO2 02/28/17 07:22 97.7 81 19 128/57 87 02/28/17 01:51 3.0 31 02/27/17 20:40 Nasal Cannula Intake and Output 02/27/17 02/27/17 02/28/17 15:00 23:00 07:00 Intake Total 600 ml 960 ml Output Total 100 ml 400 ml 1195 ml Balance -100 ml 200 ml -235 ml Exam Free Text/Dictation Dressing dry Incision clean, dry, and intact without redness or drainage 02/05 Quadriceps, Tibialis Anterior, EHL, Gastroc, Soleus, Peroneals Normal sensation Palpable DT/PT, CR <2 sec No distal edema Results Result Diagram: 02/28/17 0500 02/28/17 0500 ZEENAT PINO PA-C February 28, 2017 08:53
--- NOTE | 2017-02-28 14:07 | CONS ---
Date/Time of Note Date/Time of Note DATE: 02/28/17 TIME: 14:05 Assessment/Plan Assessment/Plan Additional Assessment/Plan 1. S/P right hip sugery - lower ext trace edema, difficult moving due to weight , continue rehab, d/c planning to [facility] 2. Atrial fibrillation with variable ventric response, asx - anticoagulation per dr haney, check inr 3. Hx CHF, IV was slowed and resume aldactone and Bumex 1-2 d, resume medications now 4. Prostatism, hoawrd removed earlier, will check bladder scan q6h, no need for straight cath 5. AMS? component of sundowning, directable, fall precautions, no evidence of infection d/c planning Consultation Date/Type/Reason Admit Date/Time February 25, 2017 at 05:34 24 HR Interval Summary Constitutional: no complaints Exam/Review of Systems Vital Signs Vitals Vital Signs Date Time Temp Pulse Resp B/P Pulse Ox O2 Delivery O2 Flow Rate FiO2 02/28/17 08:45 Nasal Cannula 02/28/17 07:22 97.7 81 19 128/57 87 02/28/17 01:51 3.0 31 Intake and Output 02/27/17 02/27/17 02/28/17 15:00 23:00 07:00 Intake Total 600 ml 960 ml Output Total 100 ml 400 ml 1195 ml Balance -100 ml 200 ml -235 ml Exam Constitutional: alert, oriented Psych: no complaints Head: normocephalic Neck: supple Respiratory: congested cough, crackles/rales Cardiovascular: irregular rhythm Gastrointestinal: nl liver, spleen, soft Extremities: normal pulses Neurological: INTRAVENOUS THERAPY NURSE II-XII intact Results Result Diagram: 02/28/17 0500 02/28/17 0500 Results 24 hrs Laboratory Tests Test 02/28/17 00:50 02/28/17 05:00 Urine Color DK. YELLOW Urine Clarity CLEAR Urine pH 6.0 Urine Specific [place] >=1.030 H Urine Ketones NEGATIVE Urine Nitrite NEGATIVE Urine Bilirubin NEGATIVE Urine Urobilinogen 1.0 E.U./dL Urine Leukocyte Esterase NEGATIVE Urine Microscopic RBC 2-5 Urine Microscopic WBC 2-5 Urine Squamous Epithelial Cells FEW Urine Bacteria OCCASIONAL Urine Hyaline Casts OCCASIONAL Urine Mucus OCCASIONAL Urine Hemoglobin NEGATIVE Urine Glucose NEGATIVE Urine Total Protein 1+ H White Blood Count 8.2 Red Blood Count 2.71 L Hemoglobin 8.1 L Hematocrit 26.6 L Mean Corpuscular Volume 98.2 Mean Corpuscular Hemoglobin 29.9 Mean Corpuscular Hemoglobin Concent 30.5 L Red Cell Distribution Width 13.4 Platelet Count 146 Mean Platelet Volume 10.6 H Neutrophils % 77.1 H Lymphocytes % 8.9 L Monocytes % 10.5 Eosinophils % 2.7 Basophils % 0.4 Nucleated Red Blood Cells % 0.0 Neutrophils # 6.3 Lymphocytes # 0.7 L Monocytes # 0.9 Eosinophils # 0.2 Basophils # 0.0 Nucleated Red Blood Cells # 0.0 Prothrombin Time 16.0 H Prothrombin Time Ratio 1.3 INR International Normalized Ratio 1.27 Sodium Level 136 Potassium Level 4.2 Chloride Level 107 Carbon Dioxide Level 29 Anion Gap 4 #L Blood Urea Nitrogen 25 H Creatinine 1.06 Glucose Level 89 Calcium Level 8.2 L Phosphorus Level 2.6 Magnesium Level 2.0 Total Bilirubin 0.7 Direct Bilirubin 0.00 Indirect Bilirubin 0.7 Aspartate Amino Transf (AST/SGOT) 58 H Alanine Aminotransferase (ALT/SGPT) 43 Alkaline Phosphatase 73 B-Type Natriuretic Peptide 2600 H Total Protein 5.8 L Albumin 2.7 L Globulin 3.10 Albumin/Globulin Ratio 0.87 Medications Medications Current Medications Allopurinol (Zyloprim) 100 mg DAILY PO Last administered on 02/28/17 08:49; Admin Dose 100 MG; Start 02/26/17 at 09:00 Atorvastatin Calcium (Lipitor) 20 mg QHS PO Last administered on 02/27/17 21: 10; Admin Dose 20 MG; Start 02/25/17 at 21:00 Lamotrigine (Lamictal) 100 mg DAILY PO Last administered on 02/28/17 08:49; Admin Dose 100 MG; Start 02/26/17 at 09:00 Metoprolol Tartrate (Lopressor) 50 mg BID PO Last administered on 02/28/17 08: 50; Admin Dose 50 MG; Start 02/25/17 at 21:00 Montelukast Sodium (Singulair) 10 mg QHS PO Last administered on 02/27/17 21: 10; Admin Dose 10 MG; Start 02/25/17 at 21:00 Tamsulosin HCl (Flomax) 0.4 mg DAILY PO Last administered on 02/28/17 08:49; Admin Dose 0.4 MG; Start 02/26/17 at 09:00 Venlafaxine HCl (Effexor Xr) 150 mg DAILY PO Last administered on 02/28/17 08: 49; Admin Dose 150 MG; Start 02/26/17 at 09:00 Ondansetron HCl (Zofran Inj) 4 mg Q6H PRN IV NAUSEA AND/OR VOMITING; Start at 10:30 Bisacodyl (Dulcolax Supp) 10 mg Q12H PRN [place] CONSTIPATION; Start 02/25/17 at 10: 30 Magnesium Hydroxide (Milk Of Mag) 30 ml BID PRN PO CONSTIPATION; Start at 10:30 Sodium Biphosphate/ Sodium Phosphate (Fleet Enema) 133 ml DAILY PRN [place] CONSTIPATION; Start 02/25/17 at 10:30 Docusate Sodium (Colace) 100 mg BID PO Last administered on 02/28/17 08:49; Admin Dose 100 MG; Start 02/25/17 at 21:00 Diphenhydramine HCl (Benadryl) 25 mg Q6H PRN PO PRURITUS Last administered on 22:54; Admin Dose 25 MG; Start 02/25/17 at 10:30 Pantoprazole (Protonix Tab) 40 mg BID@06,18 PO Last administered on 02/28/17 06:27; Admin Dose 40 MG; Start 02/25/17 at 18:00 Salmeterol Xinafoate/ Fluticasone (Advair 250/50 Diskus) 1 inh BID INH Last administered on 02/28/17 08:48; Admin Dose 1 INH; Start 02/25/17 at 12:00 Tamsulosin HCl (Flomax) 0.4 mg HS PO Last administered on 02/27/17 21:10; Admin Dose 0.4 MG; Start 02/25/17 at 21:00 Acetaminophen (Tylenol Tab) 650 mg Q4H PRN PO PAIN AND OR ELEVATED TEMP Last administered on 02/28/17 01:01; Admin Dose 650 MG; Start 02/27/17 at 12:00 Warfarin Sodium (Coumadin) 4 mg ONCE@17 ONCE PO ; Start 02/28/17 at 17:00; Stop 02/28/17 at 17:01 ALEJANDRA WOLFF MD February 28, 2017 14:07
[2017-02-28] MEDS: SPIRONOLACTONE 25 MG TAB PO SCH (15:44)
[2017-02-28] MEDS ORDERED: WARFARIN 2 MG TAB PO ONE (17:00)
[2017-02-28] MEDS: BUMETANIDE 0.5 MG TAB PO SCH (17:29)
[2017-02-28 19:58] VITALS: BP 104/63; RESP 18
[2017-02-28] MEDS: MONTELUKAST 10 MG TAB PO SCH (20:20)
[2017-02-28] MEDS: ATORVASTATIN 20 MG TAB PO SCH (20:20)
[2017-03-01 05:18] LABS: ADD SCAN DIFF NO
[2017-03-01 05:21] LABS: BASOPHILS % 0.5 % (0.0-2.0); EOSINOPHILS # 0.3 10^3/ul (0.0-0.5); HEMATOCRIT 27.2 % (42.0-52.0); HEMOGLOBIN 8.3 g/dl (14.0-18.0); LYMPHOCYTES # 0.7 10^3/ul (0.8-2.9); LYMPHOCYTES % 8.2 % (15.0-51.0); MEAN CORPUSCULAR HGB CONC 30.5 g/dl (32.0-37.0); MEAN CORPUSCULAR VOLUME 98.2 fl (82.0-101.0); MEAN PLATELET VOLUME 10.2 fl (7.4-10.4); MONOCYTE # 0.7 10^3/ul (0.3-0.9); MONOCYTES % 8.3 % (0.0-11.0); NEUTROPHIL # 6.8 10^3/ul (1.6-7.5); NEUTROPHILS % 79.5 % (39.0-77.0); PLATELET COUNT 159 10^3/UL (140-415); RED BLOOD COUNT 2.77 10^6/ul (4.70-6.10); RED CELL DISTRIBUTION WIDTH 13.4 % (11.5-14.5); WHITE BLOOD COUNT 8.6 10^3/ul (4.8-10.8)
[2017-03-01 05:54] LABS: INR 1.33; PROTIME 16.6 Sec (12.2-14.2); PT RATIO 1.3
[2017-03-01 05:55] LABS: ALBUMIN/GLOBULIN RATIO 0.96; BILIRUBIN,INDIRECT 0.9 mg/dl (0-1.1); BILIRUBIN,TOTAL 0.9 mg/dl (0.2-1.3); CALCIUM 8.3 mg/dl (8.4-10.2); CREATININE 1.01 mg/dl (0.61-1.24); MAGNESIUM 1.8 mg/dl (1.7-2.5); PHOSPHORUS 2.9 mg/dl (2.5-4.9); POTASSIUM 4.2 mmol/L (3.5-5.1); TOTAL PROTEIN 6.1 g/dl (6.1-8.1)
[2017-03-01] MEDS: BUMETANIDE 0.5 MG TAB PO SCH ×2 (05:57→18:00)
[2017-03-01] MEDS: PANTOPRAZOLE (EC) 40 MG TAB PO SCH ×2 (05:57→18:00)
[2017-03-01 07:50] VITALS: BP 101/61; RESP 20
[2017-03-01 08:30] VITALS: BP 146/82; PULSE 65; RESP 16
--- NOTE | 2017-03-01 08:32 | PN ---
Date/Time of Note Date/Time of Note DATE: 03/01/17 TIME: 08:30 Assessment/Plan Lines/Catheters IV Catheter Type (from Nrsg): Saline Lock Guzman in Place (from Nrsg): No Assessment/Plan Assessment/Plan POD #4, s/p right anterior MATT -pain meds as needed - continue to hold off narcotics -ASA/SCDs -OOB with PT -dressing changed -check AM labs -ARU eval -will hold off discharge/transfer today Subjective 24 Hr Interval Summary Denies significant hip pain. Apparently still sundowning in the evening, getting more agitated. A/O x 4 and pleasant upon eval today. VSS, afebrile. H&H improved slightly overnight. Exam/Review of Systems Vital Signs Vitals Vital Signs Date Time Temp Pulse Resp B/P Pulse Ox O2 Delivery O2 Flow Rate FiO2 03/01/17 07:50 98.0 76 20 101/61 94 02/28/17 15:17 3.0 02/28/17 08:45 Nasal Cannula 02/28/17 01:51 31 Intake and Output 02/28/17 02/28/17 03/01/17 15:00 23:00 07:00 Intake Total 1220 ml 500 ml Output Total 800 ml 1100 ml Balance 420 ml -600 ml Exam Free Text/Dictation Dressing dry Incision clean, dry, and intact without redness or drainage 02/05 Quadriceps, Tibialis Anterior, EHL, Gastroc, Soleus, Peroneals Normal sensation Palpable DT/PT, CR <2 sec No distal edema Results Result Diagram: 03/01/17 0448 03/01/17 0448 ZEENAT PINO PA-C March 01, 2017 08:32
[2017-03-01] MEDS: LAMOTRIGINE 100 MG TAB PO SCH (09:01)
[2017-03-01] MEDS: DOCUSATE SODIUM 100 MG CAP PO SCH ×2 (09:01→21:00)
[2017-03-01] MEDS: TAMSULOSIN (SR) 0.4 MG CAP PO SCH ×2 (09:01→21:00)
[2017-03-01] MEDS: ALLOPURINOL 100 MG TAB PO SCH (09:01)
[2017-03-01] MEDS: SALMETEROL/FLUTICASONE 250/50 INHA INH SCH ×2 (09:01→21:00)
[2017-03-01] MEDS: SPIRONOLACTONE 25 MG TAB PO SCH (09:01)
[2017-03-01] MEDS: METOPROLOL 50 MG TAB PO SCH ×2 (09:02→21:00)
[2017-03-01] MEDS: VENLAFAXINE (XR) 75 MG CAP PO SCH (09:02)
[2017-03-01 11:04] LABS: AADO2 Arterial 42.7 mmHg (7.0-24.0); Allen Test ACCEPTAB; Arterial Base Excess 2.2 mmol/L (-3.0-3); Arterial COHb 0.3 % (0.0-3.0); Arterial HCO3 26.2 mmol/L (22.0-26.0); Arterial MetHb 0.4 % (0.0-1.5); Arterial Total Hemglobin 9.1 g/dl (12.0-18.0); MODE ROOM AIR
--- NOTE | 2017-03-01 11:04 | RADRPT ---
PROCEDURE: XR Chest. CLINICAL INDICATION: Dyspnea TECHNIQUE: Single frontal chest x-ray. COMPARISON: None. FINDINGS: The lungs are clear of acute infiltrates, edema, effusions, or masses.. Cardiomegaly with calcific atherosclerosis of the aorta is present.. The osseous structures are intact. IMPRESSION: No acute cardiopulmonary disease. Cardiomegaly. RPTAT: HJPL .Rayo Nicole MD, MD Date Time Electronically viewed and signed by .Rayo Nicole MD, on 03/01/2017 11:04 .L/
[2017-03-01] MEDS ORDERED: LORAZEPAM 2 MG INJ IV ONE (12:50)
[2017-03-01] MEDS: PIPER-TAZO 3.375 GM IV (PMX) 100 ML IVPB SCH ×3 (13:00→23:48)
[2017-03-01] MEDS ORDERED: VANCOMYCIN IV PER PHARMACY XX SCH (13:00)
[2017-03-01] MEDS ORDERED: VANCOMYCIN 2 GM in SOD CHLORIDE 0.9% 500 ML IVPB ONE (14:00)
--- NOTE | 2017-03-01 14:50 | RADRPT ---
PROCEDURE: CT Brain without contrast. CLINICAL INDICATION: increased confusion, restlessness TECHNIQUE: A CT of the brain was performed on a multidetector CT scanner utilizing axial imaging f rom the skull base through the vertex without IV contrast. Multiplanar reformatted images were made . Images were reviewed on a PACS workstation. The CTDIvol is 44 mGy and the DLP is 720 mGycm. COMPARISON: None FINDINGS: There is moderate diffuse cerebral volume loss with sulcal and ventricular dilatation. No discrete extra-axial fluid collection or masses seen. The ventricles are in the midline and of normal contou r and configuration. There is periventricular and subcortical white matter disease in both cerebral hemispheres. No associated mass effect is present. There is no intracranial hemorrhage. There is normal aeration of the visualized paranasal sinuses. IMPRESSION: Atrophy. White matter disease compatible with chronic small vessel ischemia. No intracranial hemor rhage or mass. .Khanh Law MD, MD Date Time Electronically viewed and signed by .Khanh Law MD, on 03/01/2017 14:49 .A/
--- NOTE | 2017-03-01 14:56 | PN ---
Date/Time of Note Date/Time of Note DATE: 03/01/17 TIME: 14:45 Assessment/Plan VTE Prophylaxis VTE Prophylaxis Intervention: ambulation Lines/Catheters IV Catheter Type (from Nrsg): Saline Lock Urinary Cath still in place: No Assessment/Plan Assessment/Plan Toxic metabolic encephalopathy- likely sundowning, insomnia and hospital associated delirium -ABG WNL, CXR no acute disease -check UA/Blood Cx, sputum Cx ordered, empiric antibiotics -head CT r/o out acute CVA (unlikely) -check ammonia level (on lamictal) -restoril for sleep tonight -fall precautions -ativan for now -anemia, blood transfusion ordered for 2 units 1. S/P right hip sugery - lower ext trace edema, difficult moving due to weight , continue rehab, d/c planning to [facility] when mentally more stable 2. Atrial fibrillation with variable ventric response, asx - anticoagulation per dr haney, check inr 3. Hx CHF, IV was slowed and resume aldactone and Bumex 1-2 d, resume medications now 4. Prostatism, howard removed earlier, will check bladder scan q6h, no need for straight cath 5. AMS? component of sundowning, directable, fall precautions, no evidence of infection Subjective 24 Hr Interval Summary Free Text/Dictation patient more confused per report -no sleeping last night (at home on restoril, per get confused but directable at home, being followed for dementia) -no bowel movement x3 days -off IV fluids, no c/o hunger or thrust, no n/v -nonfocal examination, moves all 4 -family at bedside very concerned, , daughter and sister -explained sun downing, hospital associated delirium (more likely) and less likely hypotension, infection, acute cva time spent 45 minutes> 50% spent face to face Constitutional: no complaints Cardiovascular: no complaints, No chest pain, No lightheadedness Gastrointestinal: No passing stool Genitourinary: no complaints Exam/Review of Systems Vital Signs Vitals Vital Signs Date Time Temp Pulse Resp B/P Pulse Ox O2 Delivery O2 Flow Rate FiO2 03/01/17 08:30 65 16 146/82 93 Room Air 03/01/17 07:50 98.0 02/28/17 15:17 3.0 02/28/17 01:51 31 Intake and Output 02/28/17 02/28/17 03/01/17 15:00 23:00 07:00 Intake Total 1220 ml 500 ml Output Total 800 ml 1100 ml Balance 420 ml -600 ml Exam Constitutional: other (not directable, nonparticipatory) Head: normocephalic Eyes: other (eyes shut, refuses to open) ENMT: nl lips & teeth Neck: supple Respiratory: clear to auscultation, normal air movement Cardiovascular: irregular rhythm, systolic murmur, No jugular venous distention (JVD) Gastrointestinal: soft Extremities: normal pulses 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 intact, confused, nl speech, nl strength, No focal weakness Skin: nl turgor Results Result Diagram: 03/01/178 03/01/178 Results 24 hrs Laboratory Tests Test 03/01/17 04:48 03/01/17 10:06 White Blood Count 8.6 Red Blood Count 2.77 L Hemoglobin 8.3 L Hematocrit 27.2 L Mean Corpuscular Volume 98.2 Mean Corpuscular Hemoglobin 30.0 Mean Corpuscular Hemoglobin Concent 30.5 L Red Cell Distribution Width 13.4 Platelet Count 159 Mean Platelet Volume 10.2 Neutrophils % 79.5 H Lymphocytes % 8.2 L Monocytes % 8.3 Eosinophils % 3.0 Basophils % 0.5 Nucleated Red Blood Cells % 0.0 Neutrophils # 6.8 Lymphocytes # 0.7 L Monocytes # 0.7 Eosinophils # 0.3 Basophils # 0.0 Nucleated Red Blood Cells # 0.0 Prothrombin Time 16.6 H Prothrombin Time Ratio 1.3 INR International Normalized Ratio 1.33 Sodium Level 139 Potassium Level 4.2 Chloride Level 102 Carbon Dioxide Level 27 Anion Gap 14 # Blood Urea Nitrogen 19 Creatinine 1.01 Glucose Level 107 Calcium Level 8.3 L Phosphorus Level 2.9 Magnesium Level 1.8 Total Bilirubin 0.9 Direct Bilirubin 0.00 Indirect Bilirubin 0.9 Aspartate Amino Transf (AST/SGOT) 63 H Alanine Aminotransferase (ALT/SGPT) 46 Alkaline Phosphatase 87 B-Type Natriuretic Peptide 3390 H Total Protein 6.1 Albumin 3.0 L Globulin 3.10 Albumin/Globulin Ratio 0.96 Blood Gas Specimen Source Blood arterial Arterial Blood Date Drawn 03/01/2017 10:50:05 AM Arterial Blood pH (Temp corrected) 7.454 H Arterial Blood pCO2 (Temp correct) 38.2 Arterial Blood pO2 (Temp corrected) 61.3 L Arterial Blood HCO3 26.2 H Arterial Blood Base Excess 2.2 Arterial Blood Oxygen Saturation 91.6 L Rodney Test ACCEPTAB Arterial Blood Gas Puncture Site Right Radial Arterial Blood Carboxyhemoglobin 0.3 Arterial Blood Methemoglobin 0.4 Blood Gas A-a O2 Differential 42.7 H Oxyhemoglobin Percent 91.0 L Total Hemoglobin 9.1 L Blood Gas Temperature 37.0 Blood Gas Modality ROOM AIR FiO2 21.0 Blood Gas Notified Whom T JIMENA Blood Gas Notified Time 03/01/2017 11:04:01 AM Medications Medications Current Medications Allopurinol (Zyloprim) 100 mg DAILY PO Last administered on 03/01/17 09:01; Admin Dose 100 MG; Start 02/26/17 at 09:00 Atorvastatin Calcium (Lipitor) 20 mg QHS PO Last administered on 02/28/17 20: 20; Admin Dose 20 MG; Start 02/25/17 at 21:00 Lamotrigine (Lamictal) 100 mg DAILY PO Last administered on 03/01/17 09:01; Admin Dose 100 MG; Start 02/26/17 at 09:00 Metoprolol Tartrate (Lopressor) 50 mg BID PO Last administered on 03/01/17 09: 02; Admin Dose 50 MG; Start 02/25/17 at 21:00 Montelukast Sodium (Singulair) 10 mg QHS PO Last administered on 02/28/17 20: 20; Admin Dose 10 MG; Start 02/25/17 at 21:00 Tamsulosin HCl (Flomax) 0.4 mg DAILY PO Last administered on 03/01/17 09:01; Admin Dose 0.4 MG; Start 02/26/17 at 09:00 Venlafaxine HCl (Effexor Xr) 150 mg DAILY PO Last administered on 03/01/17 09: 02; Admin Dose 150 MG; Start 02/26/17 at 09:00 Ondansetron HCl (Zofran Inj) 4 mg Q6H PRN IV NAUSEA AND/OR VOMITING; Start at 10:30 Bisacodyl (Dulcolax Supp) 10 mg Q12H PRN [place] CONSTIPATION; Start 02/25/17 at 10: 30 Magnesium Hydroxide (Milk Of Mag) 30 ml BID PRN PO CONSTIPATION; Start at 10:30 Sodium Biphosphate/ Sodium Phosphate (Fleet Enema) 133 ml DAILY PRN [place] CONSTIPATION; Start 02/25/17 at 10:30 Docusate Sodium (Colace) 100 mg BID PO Last administered on 03/01/17 09:01; Admin Dose 100 MG; Start 02/25/17 at 21:00 Diphenhydramine HCl (Benadryl) 25 mg Q6H PRN PO PRURITUS Last administered on 22:54; Admin Dose 25 MG; Start 02/25/17 at 10:30 Pantoprazole (Protonix Tab) 40 mg BID@06,18 PO Last administered on 03/01/17 05:57; Admin Dose 40 MG; Start 02/25/17 at 18:00 Salmeterol Xinafoate/ Fluticasone (Advair 250/50 Diskus) 1 inh BID INH Last administered on 03/01/17 09:01; Admin Dose 1 INH; Start 02/25/17 at 12:00 Tamsulosin HCl (Flomax) 0.4 mg HS PO Last administered on 02/28/17 20:19; Admin Dose 0.4 MG; Start 02/25/17 at 21:00 Acetaminophen (Tylenol Tab) 650 mg Q4H PRN PO PAIN AND OR ELEVATED TEMP Last administered on 02/28/17 01:01; Admin Dose 650 MG; Start 02/27/17 at 12:00 Spironolactone (Aldactone) 25 mg DAILY PO Last administered on 03/01/17 09:01 ; Admin Dose 25 MG; Start 02/28/17 at 14:30 Warfarin Sodium 5 mg 5 mg ONCE@17 ONCE PO ; Start 03/01/17 at 17:00; Stop 03/01 at 17:01 Piperacillin Sod/ Tazobactam Sod 100 ml @ 200 mls/hr Q6 IVPB ; Start 03/01/17 at 13:00 Vancomycin HCl 2 gm/Sodium Chloride 500 ml @ 125 mls/hr ONCE ONCE IVPB ; Start 03/01/17 at 14:00; Stop 03/01/17 at 17:59 Vancomycin HCl/ Sodium Chloride (Vancocin/NS) 250 ml @ 83.333 mls/ hr Q12H IVPB ; Start 03/02/17 at 02:00 ALEJANDRA WOLFF MD March 01, 2017 14:56
[2017-03-01] MEDS ORDERED: BISACODYL (EC) 5 MG TAB PO PRN (15:00)
[2017-03-01] MEDS ORDERED: WARFARIN 5 MG TAB PO ONE ×3 (17:00→20:00)
[2017-03-01] MEDS ORDERED: WARFARIN 5 MG TAB NGT SCH (18:10)
[2017-03-01 20:01] VITALS: BP 160/69; RESP 18
[2017-03-01 20:42] VITALS: RESP 20
[2017-03-01] MEDS: MONTELUKAST 10 MG TAB PO SCH (21:00)
[2017-03-01] MEDS: ATORVASTATIN 20 MG TAB PO SCH (21:00)
[2017-03-01 22:07] VITALS: BP 142/72; PULSE 106; RESP 20
[2017-03-01] MEDS ORDERED: ACETAMINOPHEN (10 MG/ML) IV SYG IV* PRN (22:30)
[2017-03-01] MEDS ORDERED: HALOPERIDOL 5 MG INJ IM ONE ×2 (22:30→23:00)
[2017-03-01] MEDS: PANTOPRAZOLE 40 MG INJ IV SCH (22:57)
[2017-03-01] MEDS ORDERED: BUMETANIDE 1 MG INJ IV ONE ×2 (23:00)
[2017-03-02] MEDS: ACETAMINOPHEN 1000 MG/100 ML IVPB IV PRN ×2 (00:43→14:35)
[2017-03-02 01:55] VITALS: BP 127/76; PULSE 94; RESP 20
[2017-03-02] MEDS ORDERED: VANCOMYCIN 1.25 GM in SOD CHLORIDE 0.9% 250 ML IVPB SCH (02:00)
[2017-03-02] MEDS ORDERED: BUMETANIDE 1 MG INJ IV ONE ×2 (02:00→08:00)
[2017-03-02] MEDS: BUMETANIDE 0.5 MG TAB PO SCH ×2 (06:00→17:08)
[2017-03-02] MEDS: PANTOPRAZOLE 40 MG INJ IV SCH ×2 (06:16→17:08)
[2017-03-02] MEDS: PIPER-TAZO 3.375 GM IV (PMX) 100 ML IVPB SCH (06:20)
--- NOTE | 2017-03-02 08:33 | CONS ---
Date/Time of Note Date/Time of Note DATE: 03/02/17 TIME: 08:28 Assessment/Plan Assessment/Plan Additional Assessment/Plan 1. Altered mental status without focal deficit and ct brain noted, rev with family this is not unusual post op in the elderly but clearly this is more then one would anticipate. I have asked neurology to see. Will hold all antianxiety meds and sedation for now and asked them to have 1 family member present in the room. Abx have been stopped, cultures are pending, labs reviewed, meds rev 2. Post op right hip replacement. 3. Chronic atrial fib, now on Coumadin. Consultation Date/Type/Reason Admit Date/Time February 25, 2017 at 05:34 24 HR Interval Summary Subjective hx not possible: other (family at bedside, he is intermittenly somnolent and agitated) Detailed Summary Respiratory: shortness of breath Cardiovascular: No chest pain Gastrointestinal: no complaints Musculoskeletal: bone/joint pain Exam/Review of Systems Vital Signs Vitals Vital Signs Date Time Temp Pulse Resp B/P Pulse Ox O2 Delivery O2 Flow Rate FiO2 03/02/17 01:55 98.6 94 20 127/76 96 Nasal Cannula 4.0 02/28/17 01:51 31 Intake and Output 03/01/17 03/01/17 03/02/17 15:00 23:00 07:00 Intake Total 960 ml 1040 ml Output Total 700 ml Balance 960 ml 340 ml Exam Neck: No jvd Respiratory: diminished breath sounds (and few rhonchi bilat) Cardiovascular: No irregular rhythm Gastrointestinal: soft Extremities: No edema Neurological: confused, No focal weakness Results Result Diagram: 03/01/17 0448 03/01/17 0448 Results 24 hrs Laboratory Tests Test 03/01/17 10:06 Blood Gas Specimen Source Blood arterial Arterial Blood Date Drawn 03/01/2017 10:50:05 AM Arterial Blood pH (Temp corrected) 7.454 H Arterial Blood pCO2 (Temp correct) 38.2 Arterial Blood pO2 (Temp corrected) 61.3 L Arterial Blood HCO3 26.2 H Arterial Blood Base Excess 2.2 Arterial Blood Oxygen Saturation 91.6 L Rodney Test ACCEPTAB Arterial Blood Gas Puncture Site Right Radial Arterial Blood Carboxyhemoglobin 0.3 Arterial Blood Methemoglobin 0.4 Blood Gas A-a O2 Differential 42.7 H Oxyhemoglobin Percent 91.0 L Total Hemoglobin 9.1 L Blood Gas Temperature 37.0 Blood Gas Modality ROOM AIR FiO2 21.0 Blood Gas Notified Whom T RUSTYII Blood Gas Notified Time 03/01/2017 11:04:01 AM Medications Medications Current Medications Allopurinol (Zyloprim) 100 mg DAILY PO Last administered on 03/01/17 09:01; Admin Dose 100 MG; Start 02/26/17 at 09:00 Atorvastatin Calcium (Lipitor) 20 mg QHS PO Last administered on 02/28/17 20: 20; Admin Dose 20 MG; Start 02/25/17 at 21:00 Lamotrigine (Lamictal) 100 mg DAILY PO Last administered on 03/01/17 09:01; Admin Dose 100 MG; Start 02/26/17 at 09:00 Metoprolol Tartrate (Lopressor) 50 mg BID PO Last administered on 03/01/17 09: 02; Admin Dose 50 MG; Start 02/25/17 at 21:00 Montelukast Sodium (Singulair) 10 mg QHS PO Last administered on 02/28/17 20: 20; Admin Dose 10 MG; Start 02/25/17 at 21:00 Tamsulosin HCl (Flomax) 0.4 mg DAILY PO Last administered on 03/01/17 09:01; Admin Dose 0.4 MG; Start 02/26/17 at 09:00 Venlafaxine HCl (Effexor Xr) 150 mg DAILY PO Last administered on 03/01/17 09: 02; Admin Dose 150 MG; Start 02/26/17 at 09:00 Ondansetron HCl (Zofran Inj) 4 mg Q6H PRN IV NAUSEA AND/OR VOMITING; Start at 10:30 Bisacodyl (Dulcolax Supp) 10 mg Q12H PRN [place] CONSTIPATION; Start 02/25/17 at 10: 30 Magnesium Hydroxide (Milk Of Mag) 30 ml BID PRN PO CONSTIPATION; Start at 10:30 Sodium Biphosphate/ Sodium Phosphate (Fleet Enema) 133 ml DAILY PRN [place] CONSTIPATION; Start 02/25/17 at 10:30 Docusate Sodium (Colace) 100 mg BID PO Last administered on 03/01/17 09:01; Admin Dose 100 MG; Start 02/25/17 at 21:00 Diphenhydramine HCl (Benadryl) 25 mg Q6H PRN PO PRURITUS Last administered on 22:54; Admin Dose 25 MG; Start 02/25/17 at 10:30 Salmeterol Xinafoate/ Fluticasone (Advair 250/50 Diskus) 1 inh BID INH Last administered on 03/01/17 09:01; Admin Dose 1 INH; Start 02/25/17 at 12:00 Tamsulosin HCl (Flomax) 0.4 mg HS PO Last administered on 02/28/17 20:19; Admin Dose 0.4 MG; Start 02/25/17 at 21:00 Acetaminophen (Tylenol Tab) 650 mg Q4H PRN PO PAIN AND OR ELEVATED TEMP Last administered on 02/28/17 01:01; Admin Dose 650 MG; Start 02/27/17 at 12:00 Spironolactone 25 mg 25 mg DAILY PO Last administered on 03/01/17 09:01; Admin Dose 25 MG; Start 02/28/17 at 14:30 Piperacillin Sod/ Tazobactam Sod 100 ml @ 200 mls/hr Q6 IVPB Last administered on 03/02/17 06:20; Admin Dose 200 MLS/HR; Start 03/01/17 at 13:00 Vancomycin HCl/ Sodium Chloride (Vancocin/NS) 250 ml @ 83.333 mls/ hr Q12H IVPB Last administered on 03/02/17 02:20; Admin Dose 83.333 MLS/HR; Start at 02:00 Bisacodyl (Dulcolax) 10 mg BID PRN PO CONSTIPATION; Start 03/01/17 at 15:00 Pantoprazole (Protonix Iv) 40 mg BID@06,18 IV Last administered on 03/02/17 06 :16; Admin Dose 40 MG; Start 03/01/17 at 22:30 Acetaminophen (Ofirmev 1000mg/ 100ml Iv) 500 mg Q6H PRN IV PAIN Last administered on 03/02/17 00:43; Admin Dose 500 MG; Start 03/02/17 at 00:30 SRINI ZACARIAS MD March 02, 2017 08:33
[2017-03-02] MEDS: DOCUSATE SODIUM 100 MG CAP PO SCH ×2 (09:00→21:00)
[2017-03-02] MEDS: SPIRONOLACTONE 25 MG TAB PO SCH (09:00)
[2017-03-02] MEDS: VENLAFAXINE (XR) 75 MG CAP PO SCH (09:00)
[2017-03-02] MEDS: LAMOTRIGINE 100 MG TAB PO SCH (09:00)
[2017-03-02] MEDS: SALMETEROL/FLUTICASONE 250/50 INHA INH SCH ×2 (09:00→21:00)
[2017-03-02] MEDS: ALLOPURINOL 100 MG TAB PO SCH (09:00)
[2017-03-02] MEDS: METOPROLOL 50 MG TAB PO SCH ×2 (09:00→21:00)
[2017-03-02 09:34] LABS: ADD SCAN DIFF NO
[2017-03-02 09:51] LABS: BASOPHILS % 0.4 % (0.0-2.0); EOSINOPHILS # 0.2 10^3/ul (0.0-0.5); EOSINOPHILS % 3.1 % (0.0-7.0); HEMATOCRIT 30.9 % (42.0-52.0); HEMOGLOBIN 9.5 g/dl (14.0-18.0); LYMPHOCYTES # 0.6 10^3/ul (0.8-2.9); LYMPHOCYTES % 8.5 % (15.0-51.0); MEAN CORPUSCULAR HEMOGLOBIN 29.1 pg (29.0-33.0); MEAN CORPUSCULAR HGB CONC 30.7 g/dl (32.0-37.0); MEAN CORPUSCULAR VOLUME 94.8 fl (82.0-101.0); MEAN PLATELET VOLUME 10.3 fl (7.4-10.4); MONOCYTE # 0.8 10^3/ul (0.3-0.9); MONOCYTES % 10.5 % (0.0-11.0); NEUTROPHIL # 5.7 10^3/ul (1.6-7.5); PLATELET COUNT 171 10^3/UL (140-415); RED BLOOD COUNT 3.26 10^6/ul (4.70-6.10); RED CELL DISTRIBUTION WIDTH 14.5 % (11.5-14.5); WHITE BLOOD COUNT 7.4 10^3/ul (4.8-10.8)
[2017-03-02 09:54] LABS: INR 1.4; PROTIME 17.2 Sec (12.2-14.2); PT RATIO 1.3
[2017-03-02 10:00] LABS: ALBUMIN 2.9 g/dl (3.3-4.9)
[2017-03-02 10:01] LABS: POTASSIUM 4.6 mmol/L (3.5-5.1)
[2017-03-02 10:03] LABS: ALBUMIN/GLOBULIN RATIO 0.96; BILIRUBIN,INDIRECT 1.6 mg/dl (0-1.1); BILIRUBIN,TOTAL 1.6 mg/dl (0.2-1.3); CREATININE 1.07 mg/dl (0.61-1.24); TOTAL PROTEIN 5.9 g/dl (6.1-8.1)
[2017-03-02 10:04] LABS: CALCIUM 8.1 mg/dl (8.4-10.2); MAGNESIUM 1.9 mg/dl (1.7-2.5); PHOSPHORUS 3.3 mg/dl (2.5-4.9)
--- NOTE | 2017-03-02 10:49 | PN ---
Date/Time of Note Date/Time of Note DATE: 03/02/17 TIME: 10:44 Assessment/Plan Lines/Catheters IV Catheter Type (from Nrsg): Saline Lock Guzman in Place (from Nrsg): No Assessment/Plan Assessment/Plan POD #5, s/p right anterior MATT -hold off narcotics and use tylenol for pain -Coumadin 5mg today (refused to take yesterday) -SCDs for DVT prophylaxis -continue with sitter bedside for agitation -OOB with PT if tolerated -check AM labs -dressing changed -neurology consult per medicine Subjective 24 Hr Interval Summary Continues to be confused and agitated overnight. Refusing to take Coumadin and other medication. Currently has sitter bedside. VSS, afebrile. CT scan, CXR, ABG WNL. Medicine team following along closely. Able to do PT yesterday and did walk down the ji. Received 1 unit PRBCs yesterday. Exam/Review of Systems Vital Signs Vitals Vital Signs Date Time Temp Pulse Resp B/P Pulse Ox O2 Delivery O2 Flow Rate FiO2 03/02/17 01:55 98.6 94 20 127/76 96 Nasal Cannula 4.0 02/28/17 01:51 31 Intake and Output 03/01/17 03/01/17 03/02/17 15:00 23:00 07:00 Intake Total 960 ml 1040 ml Output Total 700 ml Balance 960 ml 340 ml Exam Free Text/Dictation Dressing dry Incision clean, dry, and intact without redness or drainage 02/05 Quadriceps, Tibialis Anterior, EHL, Gastroc, Soleus, Peroneals Normal sensation Palpable DT/PT, CR <2 sec No distal edema Results Result Diagram: 03/02/17 0915 03/02/17 0915 ZEENAT PINO PA-C March 02, 2017 10:49
[2017-03-02] MEDS ORDERED: WARFARIN 5 MG TAB PO SCH (11:00)
[2017-03-02] MEDS ORDERED: LORAZEPAM 2 MG INJ IV PRN ×2 (16:30→21:00)
[2017-03-02 19:26] VITALS: BP 131/77; RESP 20
[2017-03-02 20:05] VITALS: BP 137/72; PULSE 74; RESP 18
[2017-03-02] MEDS: ATORVASTATIN 20 MG TAB PO SCH (21:00)
[2017-03-02] MEDS: MONTELUKAST 10 MG TAB PO SCH (21:00)
[2017-03-02] MEDS: TAMSULOSIN (SR) 0.4 MG CAP PO SCH (21:00)
[2017-03-02] MEDS: QUETIAPINE 25 MG TAB PO SCH (21:00)
--- NOTE | 2017-03-03 01:39 | CONS ---
DATE OF ADMISSION: 02/25/2017 DATE OF CONSULTATION: 03/02/2017 Thank you, Dr. Solis, for your kind referral for evaluation of encephalopathy. HISTORY OF PRESENT ILLNESS: The patient is a 81-year-old gentleman with past medical history of a dilated cardiomyopathy, atrial fibrillation, congestive heart failure, chronic renal insufficiency, COPD, sleep apnea, hypertension, dyslipidemia who had an elective right hip replacement on 02/25/2017. Initially more awake and at baseline mentally the first few days after the surgery, but since 3 or 4 days ago, the patient has been progressively confused , intermittently sleepy, intermittently restless and agitated. Family is at bedside providing details of the history. He seems to be slightly better today. He received Ativan for restlessness and trying to get out of bed, 0.5 mg and at times it seems that it causes even more problems. He also received some Haldol 1 mg once yesterday. It did not seem to help. Also, according to the daughter, the patient was not sleeping well and is not sleeping well during the night. CURRENT MEDICATION: 1. Ativan 0.25 mg b.i.d. 2. Coumadin. 3. Protonix. 4. Spironolactone. 5. Lamictal. 6. Effexor. 7. Atorvastatin. 8. Metoprolol. 9. Flomax. 10. Colace. He used to get Bumex, Vancomycin, Zosyn, not anymore. ALLERGIES: NONE. FAMILY HISTORY: Noncontributory. SOCIAL HISTORY: No alcohol or drug use. LABORATORY DATA: Patient's labs show hemoglobin 9.5, hematocrit 30.9, normal WBCs and platelets. Chemistry 111, AST 122, indirect bilirubin 1.6, total 1.6. BNP 4900. Ammonia level is 11, albumin 2.9. Rest of basic metabolic panel within normal limits. BUN 20, creatinine 0.07. Blood gas yesterday 7.45 pH, pCO2 38, pO2 61. PT 17, INR 4.0, total protein 1. Blood cultures negative so far, as well as urinary cultures. PHYSICAL EXAMINATION: VITAL SIGNS: Temperature 97.4, 61 pulse, 20 respirations, 131/77 blood pressure. GENERAL: Not in acute distress, lying in bed. HEENT: Normocephalic, atraumatic head. No meningeal signs. NECK: No carotid bruits. NEUROLOGIC: Lethargic, arousable by voice, oriented x1. Fluent speech, goes back to sleep. Present response to visual threat bilaterally when aroused, from 3 to 2 mm. Extraocular movements intact without nystagmus. Symmetrical face. Preserved facial strength and sensation. Tongue is in midline. Palate elevates symmetrically. Motor strength examination seems to be preserved in all extremities. At least grossly, he moves symmetrically, also present response to pain applied to extremities. Deep tendon reflexes 1+ upper extremities, absent in lower extremities. Equivocal response to plantar stimulation bilaterally. Coordination preserved when he is reaching for objects. No dysmetria, no major tremor. At times, patient was observed having a few myoclonic jerks involving bilateral upper extremities. IMPRESSION: Encephalopathy, possibly medicine, pain killers related. He was given trazodone at some point, also [place] as well as tramadol. We will put on hold. I think encephalopathy clearly has toxic metabolic etiology. I would agree with primary MD to hold on painkillers. I think for behavioral modification, I would rather use a small dose of antipsychotics. Given that he did not sleep well, maybe the small dose of Seroquel, maybe 50 mg, at bedtime could be tried. He had a CAT scan yesterday which shows atrophy, white matter disease, no acute abnormality. Continue current treatment. I will ask to follow tomorrow. Thank you very much for this interesting consultation. Dictated By: MORGAN OWENS/KONRAD Conf#: [id number] DID#: [id number] MTDD
[2017-03-03] MEDS: BUMETANIDE 0.5 MG TAB PO SCH (05:19)
[2017-03-03] MEDS: PANTOPRAZOLE 40 MG INJ IV SCH ×2 (05:19→17:03)
[2017-03-03 07:21] VITALS: BP_SYST 143; BP_DIAS 70; BP_DIAS 93; RESP 18
--- NOTE | 2017-03-03 08:50 | PN ---
Date/Time of Note Date/Time of Note DATE: 03/03/17 TIME: 08:45 Assessment/Plan Lines/Catheters IV Catheter Type (from Nrsg): Saline Lock Guzman in Place (from Nrsg): No Assessment/Plan Assessment/Plan Guarded s/p right anterior MATT -pain meds prn. Continue to hold off narcotics and use tylenol only for pain -check AM labs. Refused blood draw this morning but will recheck again -Coumadin to be dosed off INR today -SCDs BLE for DVT prophylaxis -OOB with PT as tolerated -dressing changed -continue bedside sitter -medicine, neurology, and cardiology to follow along Subjective 24 Hr Interval Summary No acute overnight events. Denies significant pain. Did not have blood drawn this morning. Given 5mg coumadin yesterday. Appears less confused today than yesterday. Neurology saw patient yesterday. Exam/Review of Systems Vital Signs Vitals Vital Signs Date Time Temp Pulse Resp B/P Pulse Ox O2 Delivery O2 Flow Rate FiO2 03/03/17 07:21 97.4 76 18 143/70 99 03/02/17 20:05 Room Air 03/02/17 01:55 4.0 02/28/17 01:51 31 Intake and Output 03/02/17 03/02/17 03/03/17 15:00 23:00 07:00 Intake Total 350 ml 800 ml Output Total 450 ml 900 ml Balance -100 ml -100 ml Exam Free Text/Dictation Appears less confused this morning Calm and Cooperative upon evaluation Dressing dry Incision clean, dry, and intact without redness or drainage 02/05 Quadriceps, Tibialis Anterior, EHL, Gastroc, Soleus, Peroneals Normal sensation Palpable DT/PT, CR <2 sec No distal edema Results Result Diagram: 03/02/1791403/02/17914 ZEENAT PINO PA-C March 03, 2017 08:49
[2017-03-03] MEDS ORDERED: POTASSIUM CHLORIDE (SR) 10 MEQ TAB PO ONE (09:00)
--- NOTE | 2017-03-03 09:05 | CONS ---
Date/Time of Note Date/Time of Note DATE: 03/03/17 TIME: 09:03 Assessment/Plan Assessment/Plan Additional Assessment/Plan 1.Post op hip replacement. 2.Rapid A fib, related to not taking his med, cards to see 3.Cognition is better, rev with family and ortho, dc ativan, family is playing a major role "setting" him down 4.Vol overload, ? mild chf->has not been taking diuretics, will give IV this am. Consultation Date/Type/Reason Admit Date/Time February 25, 2017 at 05:34 Detailed Summary Respiratory: No shortness of breath Cardiovascular: No chest pain, No palpitations Gastrointestinal: no complaints Genitourinary: no complaints Musculoskeletal: bone/joint pain (denies hip pain) Neurologic: other (less confused) Exam/Review of Systems Vital Signs Vitals Vital Signs Date Time Temp Pulse Resp B/P Pulse Ox O2 Delivery O2 Flow Rate FiO2 03/03/17 07:21 97.4 76 18 143/70 99 03/02/17 20:05 Room Air 03/02/17 01:55 4.0 02/28/17 01:51 31 Intake and Output 03/02/17 03/02/17 03/03/17 15:00 23:00 07:00 Intake Total 350 ml 800 ml Output Total 450 ml 900 ml Balance -100 ml -100 ml Exam Neck: No jvd Respiratory: clear to auscultation Cardiovascular: No irregular rhythm Gastrointestinal: soft Extremities: edema (3+ sacral edema, no extrem edema) Results Result Diagram: 03/02/17 0915 03/02/17 0915 Results 24 hrs Laboratory Tests Test 03/02/17 09:15 White Blood Count 7.4 Red Blood Count 3.26 L Hemoglobin 9.5 L Hematocrit 30.9 L Mean Corpuscular Volume 94.8 Mean Corpuscular Hemoglobin 29.1 Mean Corpuscular Hemoglobin Concent 30.7 L Red Cell Distribution Width 14.5 Platelet Count 171 Mean Platelet Volume 10.3 Neutrophils % 77.0 Lymphocytes % 8.5 L Monocytes % 10.5 Eosinophils % 3.1 Basophils % 0.4 Nucleated Red Blood Cells % 0.0 Neutrophils # 5.7 Lymphocytes # 0.6 L Monocytes # 0.8 Eosinophils # 0.2 Basophils # 0.0 Nucleated Red Blood Cells # 0.0 Prothrombin Time 17.2 H Prothrombin Time Ratio 1.3 INR International Normalized Ratio 1.40 Sodium Level 142 Potassium Level 4.6 Chloride Level 111 H Carbon Dioxide Level 27 Anion Gap 9 # Blood Urea Nitrogen 20 Creatinine 1.07 Glucose Level 79 Calcium Level 8.1 L Phosphorus Level 3.3 Magnesium Level 1.9 Total Bilirubin 1.6 H Direct Bilirubin 0.00 Indirect Bilirubin 1.6 H Aspartate Amino Transf (AST/SGOT) 122 #H Alanine Aminotransferase (ALT/SGPT) 67 Alkaline Phosphatase 88 Ammonia 11 B-Type Natriuretic Peptide 4940 H Total Protein 5.9 L Albumin 2.9 L Globulin 3.00 Albumin/Globulin Ratio 0.96 Medications Medications Current Medications Allopurinol (Zyloprim) 100 mg DAILY PO Last administered on 03/01/17 09:01; Admin Dose 100 MG; Start 02/26/17 at 09:00 Atorvastatin Calcium (Lipitor) 20 mg QHS PO Last administered on 02/28/17 20: 20; Admin Dose 20 MG; Start 02/25/17 at 21:00 Lamotrigine (Lamictal) 100 mg DAILY PO Last administered on 03/01/17 09:01; Admin Dose 100 MG; Start 02/26/17 at 09:00 Metoprolol Tartrate (Lopressor) 50 mg BID PO Last administered on 03/01/17 09: 02; Admin Dose 50 MG; Start 02/25/17 at 21:00 Montelukast Sodium (Singulair) 10 mg QHS PO Last administered on 02/28/17 20: 20; Admin Dose 10 MG; Start 02/25/17 at 21:00 Venlafaxine HCl (Effexor Xr) 150 mg DAILY PO Last administered on 03/01/17 09: 02; Admin Dose 150 MG; Start 02/26/17 at 09:00 Ondansetron HCl (Zofran Inj) 4 mg Q6H PRN IV NAUSEA AND/OR VOMITING; Start at 10:30 Bisacodyl (Dulcolax Supp) 10 mg Q12H PRN [place] CONSTIPATION; Start 02/25/17 at 10: 30 Magnesium Hydroxide (Milk Of Mag) 30 ml BID PRN PO CONSTIPATION; Start at 10:30 Sodium Biphosphate/ Sodium Phosphate (Fleet Enema) 133 ml DAILY PRN [place] CONSTIPATION; Start 02/25/17 at 10:30 Docusate Sodium (Colace) 100 mg BID PO Last administered on 03/01/17 09:01; Admin Dose 100 MG; Start 02/25/17 at 21:00 Diphenhydramine HCl (Benadryl) 25 mg Q6H PRN PO PRURITUS Last administered on 22:54; Admin Dose 25 MG; Start 02/25/17 at 10:30 Salmeterol Xinafoate/ Fluticasone (Advair 250/50 Diskus) 1 inh BID INH Last administered on 03/01/17 09:01; Admin Dose 1 INH; Start 02/25/17 at 12:00 Tamsulosin HCl (Flomax) 0.4 mg HS PO Last administered on 02/28/17 20:19; Admin Dose 0.4 MG; Start 02/25/17 at 21:00 Acetaminophen (Tylenol Tab) 650 mg Q4H PRN PO PAIN AND OR ELEVATED TEMP Last administered on 02/28/17 01:01; Admin Dose 650 MG; Start 02/27/17 at 12:00 Spironolactone (Aldactone) 25 mg DAILY PO Last administered on 03/01/17 09:01 ; Admin Dose 25 MG; Start 02/28/17 at 14:30 Bisacodyl (Dulcolax) 10 mg BID PRN PO CONSTIPATION; Start 03/01/17 at 15:00 Pantoprazole (Protonix Iv) 40 mg BID@06,18 IV Last administered on 03/02/17 06 :16; Admin Dose 40 MG; Start 03/01/17 at 22:30 Acetaminophen (Ofirmev 1000mg/ 100ml Iv) 500 mg Q6H PRN IV PAIN Last administered on 03/02/17 14:35; Admin Dose 500 MG; Start 03/02/17 at 00:30 Quetiapine Fumarate (Seroquel) 50 mg HS PO ; Start 03/02/17 at 21:00 Bumetanide (Bumex) 1 mg DAILY PO ; Start 03/04/17 at 09:00; Status UNV Bumetanide (Bumex) 1 mg NOW ONCE IV ; Start 03/03/17 at 09:00; Stop 03/03/17 at 09:01; Status UNV Potassium Chloride (Klor-Con 10) 10 meq ONCE ONCE PO ; Start 03/03/17 at 09:00 ; Stop 03/03/17 at 09:01; Status UNV SRINI ZACARIAS MD March 03, 2017 09:05
[2017-03-03] MEDS: DOCUSATE SODIUM 100 MG CAP PO SCH ×2 (09:12→20:19)
[2017-03-03] MEDS: VENLAFAXINE (XR) 75 MG CAP PO SCH (09:13)
[2017-03-03] MEDS: SPIRONOLACTONE 25 MG TAB PO SCH (09:13)
[2017-03-03] MEDS: LAMOTRIGINE 100 MG TAB PO SCH (09:13)
[2017-03-03] MEDS: ALLOPURINOL 100 MG TAB PO SCH (09:13)
[2017-03-03] MEDS: METOPROLOL 50 MG TAB PO SCH ×2 (09:14→20:23)
[2017-03-03] MEDS: SALMETEROL/FLUTICASONE 250/50 INHA INH SCH ×2 (09:14→20:19)
--- NOTE | 2017-03-03 09:31 | CONS ---
Date/Time of Note Date/Time of Note DATE: 03/03/17 TIME: 09:19 Assessment/Plan Assessment/Plan Chief Complaint/Hosp Course Impression: Chronic afib- likely increase rate due to pt refusing medication, post op status. 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 aspiration - per primary, s/s evaluation ordered Problems: Consultation Date/Type/Reason Admit Date/Time February 25, 2017 at 05:34 Date of Consultation: March 03, 2017 Type of Consultation: Cardiology Reason for Consultation Afib Referring Provider: SRINI ZACARIAS MD Hx of Present Illness Pt is a 81 y.o. man with h/o of NICM LVEF 35-40%, mod MR/TR, chronic afib on anticoag admitted elective R MATT. pt did well after surgery 02/25, but did have confusion, ct of head negative. has been refusing some medication, hrs noted to be elevated up to 100s. pt denies palpitations, dizziness. no cp/sob. does have chronic edema. during interview, pt eating breakfast with coughing spell while eating and lower sat ? aspiration. now improved, sat normal. hrs up to 160s, now 100s by pulse ox. Constitutional: no complaints Eyes: no complaints ENT: no complaints Respiratory: cough, No shortness of breath Cardiovascular: chest pain, no complaints, No palpitations Gastrointestinal: no complaints Genitourinary: no complaints Musculoskeletal: bone/joint pain (denies hip pain) Skin: no complaints Psychological: no complaints Past Medical History Arthritis of R hip NICM LVEF previous 45%, last echo reported as 35-40% global hypokinesis iwth baseline NYHA III symptoms Afib chronic on anticoag with xarelto as outpt Moderate TR Moderate MR BPh Depression GERD Obesity LILLIE Past Surgical History R hip surgery Family History Significant Family History: other (no premature cad) Social History Alcohol Use: none Smoking Status: Former smoker Drug Use: none Exam/Review of Systems Vital Signs Vitals Vital Signs Date Time Temp Pulse Resp B/P Pulse Ox O2 Delivery O2 Flow Rate FiO2 03/03/17 07:21 97.4 76 18 143/70 99 03/02/17 20:05 Room Air 03/02/17 01:55 4.0 02/28/17 01:51 31 Intake and Output 03/02/17 03/02/17 03/03/17 15:00 23:00 07:00 Intake Total 350 ml 800 ml Output Total 450 ml 900 ml Balance -100 ml -100 ml Exam Constitutional: alert, oriented, other (obese), well developed Psych: no complaints Eyes: nl sclera ENMT: mucosa pink and moist Neck: non-tender, supple, No jvd Respiratory: other (mild wheeze posterior) Cardiovascular: other (irregularly irregular, nl s1s2, ii/vi systolic llsb) Gastrointestinal: non-tender, soft Musculoskeletal: other (ble edema 1+, chornic skin change from venous stasis) Neurological: NETWORK SUPPORT SPECIALIST II-XII intact, nl mental status, nl speech, nl strength Results Result Diagram: 03/02/1791403/02/17914 Medications Medications Current Medications Allopurinol (Zyloprim) 100 mg DAILY PO Last administered on 03/03/17 09:13; Admin Dose 100 MG; Start 02/26/17 at 09:00 Atorvastatin Calcium (Lipitor) 20 mg QHS PO Last administered on 02/28/17 20: 20; Admin Dose 20 MG; Start 02/25/17 at 21:00 Lamotrigine (Lamictal) 100 mg DAILY PO Last administered on 03/03/17 09:13; Admin Dose 100 MG; Start 02/26/17 at 09:00 Metoprolol Tartrate (Lopressor) 50 mg BID PO Last administered on 03/03/17 09: 14; Admin Dose 50 MG; Start 02/25/17 at 21:00 Montelukast Sodium (Singulair) 10 mg QHS PO Last administered on 02/28/17 20: 20; Admin Dose 10 MG; Start 02/25/17 at 21:00 Venlafaxine HCl (Effexor Xr) 150 mg DAILY PO Last administered on 03/03/17 09: 13; Admin Dose 150 MG; Start 02/26/17 at 09:00 Ondansetron HCl (Zofran Inj) 4 mg Q6H PRN IV NAUSEA AND/OR VOMITING; Start at 10:30 Bisacodyl (Dulcolax Supp) 10 mg Q12H PRN [place] CONSTIPATION; Start 02/25/17 at 10: 30 Magnesium Hydroxide (Milk Of Mag) 30 ml BID PRN PO CONSTIPATION; Start at 10:30 Sodium Biphosphate/ Sodium Phosphate (Fleet Enema) 133 ml DAILY PRN [place] CONSTIPATION; Start 02/25/17 at 10:30 Docusate Sodium (Colace) 100 mg BID PO Last administered on 03/03/17 09:12; Admin Dose 100 MG; Start 02/25/17 at 21:00 Diphenhydramine HCl (Benadryl) 25 mg Q6H PRN PO PRURITUS Last administered on 22:54; Admin Dose 25 MG; Start 02/25/17 at 10:30 Salmeterol Xinafoate/ Fluticasone (Advair 250/50 Diskus) 1 inh BID INH Last administered on 03/03/17 09:14; Admin Dose 1 INH; Start 02/25/17 at 12:00 Tamsulosin HCl (Flomax) 0.4 mg HS PO Last administered on 02/28/17 20:19; Admin Dose 0.4 MG; Start 02/25/17 at 21:00 Acetaminophen (Tylenol Tab) 650 mg Q4H PRN PO PAIN AND OR ELEVATED TEMP Last administered on 02/28/17 01:01; Admin Dose 650 MG; Start 02/27/17 at 12:00 Spironolactone (Aldactone) 25 mg DAILY PO Last administered on 03/03/17 09:13 ; Admin Dose 25 MG; Start 02/28/17 at 14:30 Bisacodyl (Dulcolax) 10 mg BID PRN PO CONSTIPATION; Start 03/01/17 at 15:00 Pantoprazole (Protonix Iv) 40 mg BID@,18 IV Last administered on 03/02/17 06 :16; Admin Dose 40 MG; Start 03/01/17 at 22:30 Acetaminophen (Ofirmev 1000mg/ 100ml Iv) 500 mg Q6H PRN IV PAIN Last administered on 03/02/17t 14:35; Admin Dose 500 MG; Start 03/02/17 at 00:30 Quetiapine Fumarate (Seroquel) 50 mg HS PO ; Start 03/02/17 at 21:00 Bumetanide (Bumex) 1 mg DAILY PO ; Start 03/04/17 at 09:00; Status UNV Bumetanide (Bumex) 1 mg NOW ONCE IV ; Start 03/03/17 at 09:00; Stop 03/03/17 at 09:01; Status UNV Potassium Chloride (Klor-Con 10) 10 meq ONCE ONCE PO ; Start 03/03/17 at 09:00 ; Stop 03/03/17 at 09:01; Status UNV Procedures Procedures EKG: afib, rate 108bpm, PVC. twave flattening lateral leads. CXR images reviewed No acute cardiopulmonary disease. CAT PEDRO March 03, 2017 09:31
[2017-03-03 09:59] LABS: ADD SCAN DIFF NO
[2017-03-03] MEDS ORDERED: BUMETANIDE 1 MG INJ IV ONE (10:00)
[2017-03-03 10:01] LABS: ABNORMAL IP MESSAGE 1; BASOPHILS % 0.5 % (0.0-2.0); EOSINOPHILS # 0.2 10^3/ul (0.0-0.5); EOSINOPHILS % 2.9 % (0.0-7.0); HEMATOCRIT 31.4 % (42.0-52.0); HEMOGLOBIN 9.8 g/dl (14.0-18.0); LYMPHOCYTES # 0.5 10^3/ul (0.8-2.9); LYMPHOCYTES % 7.4 % (15.0-51.0); MEAN CORPUSCULAR HEMOGLOBIN 29.7 pg (29.0-33.0); MEAN CORPUSCULAR HGB CONC 31.2 g/dl (32.0-37.0); MEAN CORPUSCULAR VOLUME 95.2 fl (82.0-101.0); MEAN PLATELET VOLUME 9.4 fl (7.4-10.4); MONOCYTE # 0.8 10^3/ul (0.3-0.9); MONOCYTES % 11.2 % (0.0-11.0); NEUTROPHIL # 5.7 10^3/ul (1.6-7.5); NEUTROPHILS % 77.7 % (39.0-77.0); PLATELET COUNT 192 10^3/UL (140-415); RED CELL DISTRIBUTION WIDTH 14.2 % (11.5-14.5); WHITE BLOOD COUNT 7.3 10^3/ul (4.8-10.8)
[2017-03-03 10:20] LABS: INR 1.87; POTASSIUM 4.2 mmol/L (3.5-5.1); PROTIME 21.7 Sec (12.2-14.2); PT RATIO 1.7
[2017-03-03 10:21] LABS: MAGNESIUM 1.9 mg/dl (1.7-2.5)
[2017-03-03 10:23] LABS: CREATININE 0.96 mg/dl (0.61-1.24)
--- NOTE | 2017-03-03 11:21 | CONS ---
Date/Time of Note Date/Time of Note DATE: 03/03/17 TIME: 11:16 Consult Date/Type/Reason Admit Date/Time February 25, 2017 at 05:34 Initial Consult Date 03/03/17 Type of Consultation: Neurology Reason for Consultation encephalopathy , delirium Ordering Provider: SRINI ZACARIAS MD Subjective 81 year old male w hx of dilated cardiomyopathy, afib on coumadin, CHF, COPD, LILLIE, HTN, HLD admitted for Right ORIF on 02/25/17 with progressive encephalopathy and agitation. Yesterday he was evaluated by neurology and pain meds were discontinued, encephalopathy and delirium thought to be secondary to high doses of meds. Today he is much more calm and cooperative. Objective Vital Signs Date Time Temp Pulse Resp B/P Pulse Ox O2 Delivery O2 Flow Rate FiO2 03/03/17 07:21 97.4 76 18 143/70 99 03/02/17 20:05 Room Air 03/02/17 01:55 4.0 02/28/17 01:51 31 Intake and Output 03/02/17 03/02/17 03/03/17 15:00 23:00 07:00 Intake Total 350 ml 800 ml Output Total 450 ml 900 ml Balance -100 ml -100 ml Exam awake and alert obese male, appears stated age oriented to self and age states 81 unable to state the date or current location other than the state is [place] follows commands and cooperative with neurologic exam CN: [place], no nystagmus, no facial asymmetry tongue midline scm/trap intact Motor: no drift in arms or legs Sensory intact throughout Reflexes 1+ throughout toes are down Results/Medications Result Diagram: 03/03/17 0950 03/03/17 0950 Results 24 hrs Laboratory Tests Test 03/03/17 09:50 White Blood Count 7.3 Red Blood Count 3.30 L Hemoglobin 9.8 L Hematocrit 31.4 L Mean Corpuscular Volume 95.2 Mean Corpuscular Hemoglobin 29.7 Mean Corpuscular Hemoglobin Concent 31.2 L Red Cell Distribution Width 14.2 Platelet Count 192 Mean Platelet Volume 9.4 Neutrophils % 77.7 H Lymphocytes % 7.4 L Monocytes % 11.2 H Eosinophils % 2.9 Basophils % 0.5 Nucleated Red Blood Cells % 0.0 Neutrophils # 5.7 Lymphocytes # 0.5 L Monocytes # 0.8 Eosinophils # 0.2 Basophils # 0.0 Nucleated Red Blood Cells # 0.0 Prothrombin Time Pending Prothrombin Time Ratio 1.7 INR International Normalized Ratio 1.87 Sodium Level 141 Potassium Level 4.2 Chloride Level 109 Carbon Dioxide Level 28 Anion Gap 8 Blood Urea Nitrogen 18 Creatinine 0.96 Glucose Level 114 Calcium Level 8.0 L Phosphorus Level 3.0 Magnesium Level 1.9 Medications Current Medications Allopurinol (Zyloprim) 100 mg DAILY PO Last administered on 03/03/17 09:13; Admin Dose 100 MG; Start 02/26/17 at 09:00 Atorvastatin Calcium (Lipitor) 20 mg QHS PO Last administered on 02/28/17 20: 20; Admin Dose 20 MG; Start 02/25/17 at 21:00 Lamotrigine (Lamictal) 100 mg DAILY PO Last administered on 03/03/17 09:13; Admin Dose 100 MG; Start 02/26/17 at 09:00 Metoprolol Tartrate (Lopressor) 50 mg BID PO Last administered on 03/03/17 09: 14; Admin Dose 50 MG; Start 02/25/17 at 21:00 Montelukast Sodium (Singulair) 10 mg QHS PO Last administered on 02/28/17 20: 20; Admin Dose 10 MG; Start 02/25/17 at 21:00 Venlafaxine HCl (Effexor Xr) 150 mg DAILY PO Last administered on 03/03/17 09: 13; Admin Dose 150 MG; Start 02/26/17 at 09:00 Ondansetron HCl (Zofran Inj) 4 mg Q6H PRN IV NAUSEA AND/OR VOMITING; Start at 10:30 Bisacodyl (Dulcolax Supp) 10 mg Q12H PRN [place] CONSTIPATION; Start 02/25/17 at 10: 30 Magnesium Hydroxide (Milk Of Mag) 30 ml BID PRN PO CONSTIPATION; Start at 10:30 Sodium Biphosphate/ Sodium Phosphate (Fleet Enema) 133 ml DAILY PRN [place] CONSTIPATION; Start 02/25/17 at 10:30 Docusate Sodium (Colace) 100 mg BID PO Last administered on 03/03/17 09:12; Admin Dose 100 MG; Start 02/25/17 at 21:00 Diphenhydramine HCl (Benadryl) 25 mg Q6H PRN PO PRURITUS Last administered on 22:54; Admin Dose 25 MG; Start 02/25/17 at 10:30 Salmeterol Xinafoate/ Fluticasone (Advair 250/50 Diskus) 1 inh BID INH Last administered on 03/03/17 09:14; Admin Dose 1 INH; Start 02/25/17 at 12:00 Tamsulosin HCl (Flomax) 0.4 mg HS PO Last administered on 02/28/17 20:19; Admin Dose 0.4 MG; Start 02/25/17 at 21:00 Acetaminophen (Tylenol Tab) 650 mg Q4H PRN PO PAIN AND OR ELEVATED TEMP Last administered on 02/28/17 01:01; Admin Dose 650 MG; Start 02/27/17 at 12:00 Spironolactone (Aldactone) 25 mg DAILY PO Last administered on 03/03/17 09:13 ; Admin Dose 25 MG; Start 02/28/17 at 14:30 Bisacodyl (Dulcolax) 10 mg BID PRN PO CONSTIPATION; Start 03/01/17 at 15:00 Pantoprazole (Protonix Iv) 40 mg BID@06,18 IV Last administered on 03/02/17 06 :16; Admin Dose 40 MG; Start 03/01/17 at 22:30 Acetaminophen (Ofirmev 1000mg/ 100ml Iv) 500 mg Q6H PRN IV PAIN Last administered on 03/02/17 14:35; Admin Dose 500 MG; Start 03/02/17 at 00:30 Quetiapine Fumarate (Seroquel) 50 mg HS PO ; Start 03/02/17 at 21:00 Bumetanide (Bumex) 1 mg DAILY PO ; Start 03/04/17 at 09:00 Assessment/Plan Chief Complaint/Hosp Course 81 year old s/p hip replacement with encephalopathy likely related to pain medications, improving. Continue off pain medications and avoid overly sedating medications may use low dose Seroquel as needed prn for bedtime for agitation CTH shows no acute process continue current management, please reconsult as needed Problems: SHERYL COSME MD March 03, 2017 11:21
[2017-03-03] MEDS ORDERED: WARFARIN 2 MG TAB PO SCH (17:00)
[2017-03-03 19:16] VITALS: BP 121/70; RESP 18
[2017-03-03] MEDS: TAMSULOSIN (SR) 0.4 MG CAP PO SCH (20:19)
[2017-03-03] MEDS: MONTELUKAST 10 MG TAB PO SCH (20:19)
[2017-03-03] MEDS: ATORVASTATIN 20 MG TAB PO SCH (20:19)
[2017-03-03] MEDS: QUETIAPINE 25 MG TAB PO SCH (21:00)
[2017-03-04] MEDS: PANTOPRAZOLE 40 MG INJ IV SCH ×2 (05:31→17:33)
[2017-03-04 06:22] LABS: HEMOGLOBIN 9.7 g/dl (14.0-18.0)
[2017-03-04 06:36] LABS: INR 1.74; PROTIME 20.5 Sec (12.2-14.2); PT RATIO 1.6
[2017-03-04 06:39] LABS: CALCIUM 8.1 mg/dl (8.4-10.2); CREATININE 0.94 mg/dl (0.61-1.24); POTASSIUM 3.9 mmol/L (3.5-5.1)
[2017-03-04 07:16] VITALS: BP 94/63; RESP 20
[2017-03-04 07:37] LABS: ALBUMIN 3.5 g/dl (3.3-4.9); TOTAL PROTEIN 6.2 g/dl (6.1-8.1)
[2017-03-04] MEDS: METOPROLOL 50 MG TAB PO SCH ×2 (09:00→21:00)
[2017-03-04 09:23] VITALS: BP 119/75; RESP 16
[2017-03-04] MEDS: DOCUSATE SODIUM 100 MG CAP PO SCH ×2 (09:25→21:00)
[2017-03-04] MEDS: SPIRONOLACTONE 25 MG TAB PO SCH (09:25)
[2017-03-04] MEDS: LAMOTRIGINE 100 MG TAB PO SCH (09:25)
[2017-03-04] MEDS: VENLAFAXINE (XR) 75 MG CAP PO SCH (09:25)
[2017-03-04] MEDS: BUMETANIDE 0.5 MG TAB PO SCH (09:25)
[2017-03-04] MEDS: ALLOPURINOL 100 MG TAB PO SCH (09:25)
[2017-03-04] MEDS: SALMETEROL/FLUTICASONE 250/50 INHA INH SCH ×2 (09:26→21:00)
--- NOTE | 2017-03-04 12:28 | CONS ---
Date/Time of Note Date/Time of Note DATE: 03/04/17 TIME: 12:24 Assessment/Plan Assessment/Plan Additional Assessment/Plan 1. Cognitive fx and agitation improved, neuro started seroquel yesterday, will leave in place for now. 2. Atrial fib with now controlled venrtic rate since he resumed po meds 3. Vol overload/chf improved. 4. S/P right hip replacement 5. Hopeful dc tomm if continues to improve Consultation Date/Type/Reason Admit Date/Time February 25, 2017 at 05:34 Type of Consultation: Neurology Referring Provider: SRINI ZACARIAS MD Detailed Summary Respiratory: No shortness of breath Cardiovascular: No chest pain Gastrointestinal: no complaints Genitourinary: no complaints Musculoskeletal: bone/joint pain (mild right hip pain) Exam/Review of Systems Vital Signs Vitals Vital Signs Date Time Temp Pulse Resp B/P Pulse Ox O2 Delivery O2 Flow Rate FiO2 03/04/17 09:23 16 119/75 92 Room Air 03/04/17 07:16 97.3 56 03/03/17 08:00 3.0 Intake and Output 03/03/17 03/03/17 03/04/17 15:00 23:00 07:00 Intake Total 1760 ml 240 ml Output Total 1000 ml Balance 760 ml 240 ml Exam Neck: No jvd Respiratory: clear to auscultation, diminished breath sounds Cardiovascular: No irregular rhythm Gastrointestinal: soft Extremities: No edema (legs and less sacral edema) Neurological: No focal weakness (and less agitated and confused) Results Result Diagram: 03/04/17 0527 03/04/17 0515 Results 24 hrs Laboratory Tests Test 03/04/17 05:15 03/04/17 05:27 03/04/17 05:57 Sodium Level 142 Potassium Level 3.9 Chloride Level 110 Carbon Dioxide Level 28 Anion Gap 8 Blood Urea Nitrogen 18 Creatinine 0.94 Glucose Level 92 Calcium Level 8.1 L Total Bilirubin 1.0 Direct Bilirubin 0.00 Indirect Bilirubin 1.0 Aspartate Amino Transf (AST/SGOT) 89 H Alanine Aminotransferase (ALT/SGPT) 73 H Alkaline Phosphatase 94 Total Protein 6.2 Albumin 3.5 Hemoglobin 9.7 L Hematocrit 31.0 L Prothrombin Time 20.5 H Prothrombin Time Ratio 1.6 INR International Normalized Ratio 1.74 Medications Medications Current Medications Allopurinol (Zyloprim) 100 mg DAILY PO Last administered on 03/04/17 09:25; Admin Dose 100 MG; Start 02/26/17 at 09:00 Atorvastatin Calcium (Lipitor) 20 mg QHS PO Last administered on 03/03/17 20: 19; Admin Dose 20 MG; Start 02/25/17 at 21:00 Lamotrigine (Lamictal) 100 mg DAILY PO Last administered on 03/04/17 09:25; Admin Dose 100 MG; Start 02/26/17 at 09:00 Metoprolol Tartrate (Lopressor) 50 mg BID PO Last administered on 03/03/17 20: 23; Admin Dose 50 MG; Start 02/25/17 at 21:00 Montelukast Sodium (Singulair) 10 mg QHS PO Last administered on 03/03/17 20: 19; Admin Dose 10 MG; Start 02/25/17 at 21:00 Venlafaxine HCl (Effexor Xr) 150 mg DAILY PO Last administered on 03/04/17 09: 25; Admin Dose 150 MG; Start 02/26/17 at 09:00 Ondansetron HCl (Zofran Inj) 4 mg Q6H PRN IV NAUSEA AND/OR VOMITING; Start at 10:30 Bisacodyl (Dulcolax Supp) 10 mg Q12H PRN [place] CONSTIPATION; Start 02/25/17 at 10: 30 Magnesium Hydroxide (Milk Of Mag) 30 ml BID PRN PO CONSTIPATION; Start at 10:30 Sodium Biphosphate/ Sodium Phosphate (Fleet Enema) 133 ml DAILY PRN [place] CONSTIPATION; Start 02/25/17 at 10:30 Docusate Sodium (Colace) 100 mg BID PO Last administered on 03/04/17 09:25; Admin Dose 100 MG; Start 02/25/17 at 21:00 Diphenhydramine HCl (Benadryl) 25 mg Q6H PRN PO PRURITUS Last administered on 22:54; Admin Dose 25 MG; Start 02/25/17 at 10:30 Salmeterol Xinafoate/ Fluticasone (Advair 250/50 Diskus) 1 inh BID INH Last administered on 03/04/17 09:26; Admin Dose 1 INH; Start 02/25/17 at 12:00 Tamsulosin HCl (Flomax) 0.4 mg HS PO Last administered on 03/03/17 20:19; Admin Dose 0.4 MG; Start 02/25/17 at 21:00 Acetaminophen (Tylenol Tab) 650 mg Q4H PRN PO PAIN AND OR ELEVATED TEMP Last administered on 02/28/17 01:01; Admin Dose 650 MG; Start 02/27/17 at 12:00 Spironolactone (Aldactone) 25 mg DAILY PO Last administered on 03/04/17 09:25; Admin Dose 25 MG; Start 02/28/17 at 14:30 Bisacodyl (Dulcolax) 10 mg BID PRN PO CONSTIPATION; Start 03/01/17 at 15:00 Pantoprazole (Protonix Iv) 40 mg BID@06,18 IV Last administered on 03/04/17 05: 31; Admin Dose 40 MG; Start 03/01/17 at 22:30 Acetaminophen (Ofirmev 1000mg/ 100ml Iv) 500 mg Q6H PRN IV PAIN Last administered on 03/02/17 14:35; Admin Dose 500 MG; Start 03/02/17 at 00:30 Quetiapine Fumarate (Seroquel) 50 mg HS PO ; Start 03/02/17 at 21:00 Bumetanide (Bumex) 1 mg DAILY PO Last administered on 03/04/17 09:25; Admin Dose 1 MG; Start 03/04/17 at 09:00 Warfarin Sodium (Coumadin) 5 mg ONCE@17 PO ; Start 03/04/17 at 17:00; Stop at 23:00 SRINI ZACARIAS MD Mar 04, 2017 12:28
--- NOTE | 2017-03-04 12:52 | PN ---
Date/Time of Note Date/Time of Note DATE: 03/04/17 TIME: 12:50 Assessment/Plan Lines/Catheters IV Catheter Type (from Nrsg): Saline Lock Guzman in Place (from Nrsg): No Assessment/Plan Assessment/Plan Improving, s/p right anterior MATT -pain meds prn. Continue to hold off narcotics and use tylenol only for pain -Coumadin 5mg at 1700 today -SCDs BLE for DVT prophylaxis -OOB with PT as tolerated -dressing changed -continue bedside sitter -medicine, neurology, and cardiology to follow along -improving neurologic state. Possible transfer to [facility] tomorrow Subjective 24 Hr Interval Summary No acute overnight events. Taking seroquel per neurolgy. Overall looks much better and is more alert today. VSS, afebrile. Possible transfer to [facility] tomorrow if symptoms improve. Exam/Review of Systems Vital Signs Vitals Vital Signs Date Time Temp Pulse Resp B/P Pulse Ox O2 Delivery O2 Flow Rate FiO2 03/04/17 09:23 16 119/75 92 Room Air 03/04/17 07:16 97.3 56 03/03/17 08:00 3.0 Intake and Output 03/03/17 03/03/17 03/04/17 15:00 23:00 07:00 Intake Total 1760 ml 240 ml Output Total 1000 ml Balance 760 ml 240 ml Exam Free Text/Dictation Dressing dry Incision clean, dry, and intact without redness or drainage 5/5 Quadriceps, Tibialis Anterior, EHL, Gastroc, Soleus, Peroneals Normal sensation Palpable DT/PT, CR <2 sec No distal edema Results Result Diagram: 03/04/17 0527 03/04/17 0515 ZEENAT PINO PA-C Mar 04, 2017 12:52
[2017-03-04 13:45] VITALS: BP 114/70; RESP 19
[2017-03-04] MEDS ORDERED: WARFARIN 5 MG TAB PO SCH (17:00)
[2017-03-04 20:23] VITALS: BP 125/65; RESP 20
[2017-03-04] MEDS: TAMSULOSIN (SR) 0.4 MG CAP PO SCH (21:00)
[2017-03-04] MEDS: ATORVASTATIN 20 MG TAB PO SCH (21:00)
[2017-03-04] MEDS: MONTELUKAST 10 MG TAB PO SCH (21:00)
[2017-03-04] MEDS: QUETIAPINE 25 MG TAB PO SCH (21:00)
--- NOTE | 2017-03-04 22:39 | CONS ---
Date/Time of Note Date/Time of Note DATE: 03/04/17 TIME: 22:35 Assessment/Plan Assessment/Plan Chief Complaint/Hosp Course Impression: Chronic afib- likely increase rate due to pt refusing medication, post op status. - cont metoprolol po, hold for HR < 50, SBP < 90 - hr control improved. 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 remains alert, pleasant but confused. hrs controlled per vital checks. no cp, sob, palpitations. did have dizziness when walking per family. Constitutional: disoriented Detailed Summary Respiratory: no complaints Cardiovascular: lightheadedness Gastrointestinal: no complaints Exam/Review of Systems Vital Signs Vitals Vital Signs Date Time Temp Pulse Resp B/P Pulse Ox O2 Delivery O2 Flow Rate FiO2 03/04/17 21:59 2.0 03/04/17 20:23 98.6 78 20 125/65 100 03/04/17 09:23 Room Air Intake and Output 03/03/17 03/03/17 03/04/17 15:00 23:00 07:00 Intake Total 1760 ml 240 ml Output Total 1000 ml Balance 760 ml 240 ml Exam Constitutional: alert, oriented, other (obese), well developed Psych: no complaints Eyes: nl sclera ENMT: mucosa pink and moist Neck: non-tender, supple, No jvd Respiratory: other (mild wheeze posterior) Cardiovascular: other (irregularly irregular, nl s1s2, ii/vi systolic llsb) Gastrointestinal: non-tender, soft Musculoskeletal: other (ble edema 1+, chornic skin change from venous stasis) Neurological: EDGE FINISHER II-XII intact, nl mental status, nl speech, nl strength Results Result Diagram: 03/04/17 0527 03/04/17 0515 Results 24 hrs Laboratory Tests Test 03/04/17 05:15 03/04/17 05:27 03/04/17 05:57 Sodium Level 142 Potassium Level 3.9 Chloride Level 110 Carbon Dioxide Level 28 Anion Gap 8 Blood Urea Nitrogen 18 Creatinine 0.94 Glucose Level 92 Calcium Level 8.1 L Total Bilirubin 1.0 Direct Bilirubin 0.00 Indirect Bilirubin 1.0 Aspartate Amino Transf (AST/SGOT) 89 H Alanine Aminotransferase (ALT/SGPT) 73 H Alkaline Phosphatase 94 Total Protein 6.2 Albumin 3.5 Hemoglobin 9.7 L Hematocrit 31.0 L Prothrombin Time 20.5 H Prothrombin Time Ratio 1.6 INR International Normalized Ratio 1.74 Medications Medications Current Medications Allopurinol (Zyloprim) 100 mg DAILY PO Last administered on 03/04/17 09:25; Admin Dose 100 MG; Start 02/26/17 at 09:00 Atorvastatin Calcium (Lipitor) 20 mg QHS PO Last administered on 03/03/17 20: 19; Admin Dose 20 MG; Start 02/25/17 at 21:00 Lamotrigine (Lamictal) 100 mg DAILY PO Last administered on 03/04/17 09:25; Admin Dose 100 MG; Start 02/26/17 at 09:00 Metoprolol Tartrate (Lopressor) 50 mg BID PO Last administered on 03/03/17 20: 23; Admin Dose 50 MG; Start 02/25/17 at 21:00 Montelukast Sodium (Singulair) 10 mg QHS PO Last administered on 03/03/17 20: 19; Admin Dose 10 MG; Start 02/25/17 at 21:00 Venlafaxine HCl (Effexor Xr) 150 mg DAILY PO Last administered on 03/04/17 09: 25; Admin Dose 150 MG; Start 02/26/17 at 09:00 Ondansetron HCl (Zofran Inj) 4 mg Q6H PRN IV NAUSEA AND/OR VOMITING; Start at 10:30 Bisacodyl (Dulcolax Supp) 10 mg Q12H PRN [place] CONSTIPATION; Start 02/25/17 at 10: 30 Magnesium Hydroxide (Milk Of Mag) 30 ml BID PRN PO CONSTIPATION; Start at 10:30 Sodium Biphosphate/ Sodium Phosphate (Fleet Enema) 133 ml DAILY PRN [place] CONSTIPATION; Start 02/25/17 at 10:30 Docusate Sodium (Colace) 100 mg BID PO Last administered on 03/04/17 09:25; Admin Dose 100 MG; Start 02/25/17 at 21:00 Diphenhydramine HCl (Benadryl) 25 mg Q6H PRN PO PRURITUS Last administered on 22:54; Admin Dose 25 MG; Start 02/25/17 at 10:30 Salmeterol Xinafoate/ Fluticasone (Advair 250/50 Diskus) 1 inh BID INH Last administered on 03/04/17 09:26; Admin Dose 1 INH; Start 02/25/17 at 12:00 Tamsulosin HCl (Flomax) 0.4 mg HS PO Last administered on 03/03/17 20:19; Admin Dose 0.4 MG; Start 02/25/17 at 21:00 Acetaminophen (Tylenol Tab) 650 mg Q4H PRN PO PAIN AND OR ELEVATED TEMP Last administered on 02/28/17 01:01; Admin Dose 650 MG; Start 02/27/17 at 12:00 Spironolactone (Aldactone) 25 mg DAILY PO Last administered on 03/04/17 09:25; Admin Dose 25 MG; Start 02/28/17 at 14:30 Bisacodyl (Dulcolax) 10 mg BID PRN PO CONSTIPATION; Start 03/01/17 at 15:00 Acetaminophen (Ofirmev 1000mg/ 100ml Iv) 500 mg Q6H PRN IV PAIN Last administered on 03/02/17 14:35; Admin Dose 500 MG; Start 03/02/17 at 00:30 Quetiapine Fumarate (Seroquel) 50 mg HS PO ; Start 03/02/17 at 21:00 Bumetanide (Bumex) 1 mg DAILY PO Last administered on 03/04/17 09:25; Admin Dose 1 MG; Start 03/04/17 at 09:00 Warfarin Sodium (Coumadin) 5 mg ONCE@17 PO Last administered on 03/04/17 17:33 ; Admin Dose 5 MG; Start 03/04/17 at 17:00; Stop 03/04/17 at 23:00 Pantoprazole (Protonix Tab) 40 mg BID@06,18 PO ; Start 03/05/17 at 06:00 Procedures Procedures provider notes reviewed [facility] PEDRO Mar 04, 2017 22:39
[2017-03-05] MEDS: PANTOPRAZOLE (EC) 40 MG TAB PO SCH ×2 (05:31→17:28)
[2017-03-05 07:41] VITALS: BP 114/58; RESP 18
--- NOTE | 2017-03-05 08:29 | CONS ---
Date/Time of Note Date/Time of Note DATE: 03/05/17 TIME: 08:26 Assessment/Plan Assessment/Plan Chief Complaint/Hosp Course 1. Postop right total hip arthroplasty 2. Altered level of consciousness with some confusion but overall improved according to family. 3. Atrial fibrillation heart rate seems fast at this time I will do an EKG. He is on Coumadin. 4. Congestive heart failure , seems compensated at this time Problems: Consultation Date/Type/Reason Admit Date/Time February 25, 2017 at 05:34 Initial Consult Date 03/03/17 Type of Consultation: cardiology Referring Provider: SRINI ZACARIAS MD 24 HR Interval Summary Free Text/Dictation He is awake and responsive . Confused , he thinks that he is at the [facility] in [facility]. He has no complaints. Constitutional: no complaints Exam/Review of Systems Vital Signs Vitals Vital Signs Date Time Temp Pulse Resp B/P Pulse Ox O2 Delivery O2 Flow Rate FiO2 03/05/17 07:41 98.4 74 18 114/58 98 03/05/17 02:52 2.0 03/04/17 09:23 Room Air Intake and Output 03/04/17 03/04/17 03/05/17 15:00 23:00 07:00 Intake Total 1000 ml 250 ml Output Total 2750 ml 800 ml Balance -1750 ml -550 ml Exam Constitutional: alert Psych: confusion Respiratory: clear to auscultation, normal air movement Cardiovascular: edema, irregular rhythm Gastrointestinal: soft Extremities: edema Results Result Diagram: 03/04/17 0527 03/04/17 0515 Medications Medications Current Medications Allopurinol (Zyloprim) 100 mg DAILY PO Last administered on 03/04/17 09:25; Admin Dose 100 MG; Start 02/26/17 at 09:00 Atorvastatin Calcium (Lipitor) 20 mg QHS PO Last administered on 03/03/17 20: 19; Admin Dose 20 MG; Start 02/25/17 at 21:00 Lamotrigine (Lamictal) 100 mg DAILY PO Last administered on 03/04/17 09:25; Admin Dose 100 MG; Start 02/26/17 at 09:00 Metoprolol Tartrate (Lopressor) 50 mg BID PO Last administered on 03/03/17 20: 23; Admin Dose 50 MG; Start 02/25/17 at 21:00 Montelukast Sodium (Singulair) 10 mg QHS PO Last administered on 03/03/17 20: 19; Admin Dose 10 MG; Start 02/25/17 at 21:00 Venlafaxine HCl (Effexor Xr) 150 mg DAILY PO Last administered on 03/04/17 09: 25; Admin Dose 150 MG; Start 02/26/17 at 09:00 Ondansetron HCl (Zofran Inj) 4 mg Q6H PRN IV NAUSEA AND/OR VOMITING; Start at 10:30 Bisacodyl (Dulcolax Supp) 10 mg Q12H PRN [place] CONSTIPATION; Start 02/25/17 at 10: 30 Magnesium Hydroxide (Milk Of Mag) 30 ml BID PRN PO CONSTIPATION; Start at 10:30 Sodium Biphosphate/ Sodium Phosphate (Fleet Enema) 133 ml DAILY PRN [place] CONSTIPATION; Start 02/25/17 at 10:30 Docusate Sodium (Colace) 100 mg BID PO Last administered on 03/04/17 09:25; Admin Dose 100 MG; Start 02/25/17 at 21:00 Diphenhydramine HCl (Benadryl) 25 mg Q6H PRN PO PRURITUS Last administered on 22:54; Admin Dose 25 MG; Start 02/25/17 at 10:30 Salmeterol Xinafoate/ Fluticasone (Advair 250/50 Diskus) 1 inh BID INH Last administered on 03/04/17 09:26; Admin Dose 1 INH; Start 02/25/17 at 12:00 Tamsulosin HCl (Flomax) 0.4 mg HS PO Last administered on 03/03/17 20:19; Admin Dose 0.4 MG; Start 02/25/17 at 21:00 Acetaminophen (Tylenol Tab) 650 mg Q4H PRN PO PAIN AND OR ELEVATED TEMP Last administered on 02/28/17 01:01; Admin Dose 650 MG; Start 02/27/17 at 12:00 Spironolactone (Aldactone) 25 mg DAILY PO Last administered on 03/04/17 09:25; Admin Dose 25 MG; Start 02/28/17 at 14:30 Bisacodyl (Dulcolax) 10 mg BID PRN PO CONSTIPATION Last administered on 05:32; Admin Dose 10 MG; Start 03/01/17 at 15:00 Acetaminophen (Ofirmev 1000mg/ 100ml Iv) 500 mg Q6H PRN IV PAIN Last administered on 03/02/17 14:35; Admin Dose 500 MG; Start 03/02/17 at 00:30 Quetiapine Fumarate (Seroquel) 50 mg HS PO ; Start 03/02/17 at 21:00 Bumetanide (Bumex) 1 mg DAILY PO Last administered on 03/04/17 09:25; Admin Dose 1 MG; Start 03/04/17 at 09:00 Pantoprazole (Protonix Tab) 40 mg BID@,18 PO Last administered on 03/05/17 05 :31; Admin Dose 40 MG; Start 03/05/17 at 06:00 RIVKA SANCHEZ MD Mar 05, 2017 08:29
[2017-03-05] MEDS: ALLOPURINOL 100 MG TAB PO SCH (08:48)
[2017-03-05] MEDS: METOPROLOL 50 MG TAB PO SCH (08:50)
[2017-03-05] MEDS: SALMETEROL/FLUTICASONE 250/50 INHA INH SCH ×2 (08:51→20:36)
[2017-03-05] MEDS: VENLAFAXINE (XR) 75 MG CAP PO SCH (08:51)
[2017-03-05] MEDS: DOCUSATE SODIUM 100 MG CAP PO SCH ×2 (08:51→20:29)
[2017-03-05] MEDS: SPIRONOLACTONE 25 MG TAB PO SCH (08:51)
[2017-03-05] MEDS: LAMOTRIGINE 100 MG TAB PO SCH (08:51)
[2017-03-05] MEDS: BUMETANIDE 0.5 MG TAB PO SCH (08:51)
--- NOTE | 2017-03-05 09:01 | PN ---
Date/Time of Note Date/Time of Note DATE: 03/05/17 TIME: 08:59 Assessment/Plan Lines/Catheters IV Catheter Type (from Nrsg): Saline Lock Guzman in Place (from Nrsg): No Assessment/Plan Assessment/Plan Improved. -Cardiology to see patient regarding increased HR -Hold transfer to ARU until cardiology sees patient -Pain meds -Check labs -Coumadin/SCDs -OOB with PT Subjective 24 Hr Interval Summary Resting comfortably. Confusion resolved. HR went up 110, now 85. Exam/Review of Systems Vital Signs Vitals Vital Signs Date Time Temp Pulse Resp B/P Pulse Ox O2 Delivery O2 Flow Rate FiO2 03/05/17 07:41 98.4 74 18 114/58 98 03/05/17 02:52 2.0 03/04/17 09:23 Room Air Intake and Output 03/04/17 03/04/17 03/05/17 15:00 23:00 07:00 Intake Total 1000 ml 250 ml Output Total 2750 ml 800 ml Balance -1750 ml -550 ml Exam Free Text/Dictation Dressing dry Incision clean, dry, and intact without redness or drainage Thigh soft 5/5 Quadriceps, Tibialis Anterior, EHL, Gastroc Soleus, Peroneals Normal sensation Palpable DP/PT, CR < 2 Sec No distal edema No labs back yet as patient refused blood draw this AM Results Result Diagram: 03/04/17 0527 03/04/17 0515 KRISTINA ESPINOZA MD Mar 05, 2017 09:01
[2017-03-05 10:05] LABS: ADD SCAN DIFF NO
[2017-03-05 10:14] LABS: ABNORMAL IP MESSAGE 1; BASOPHILS % 0.5 % (0.0-2.0); EOSINOPHILS # 0.4 10^3/ul (0.0-0.5); EOSINOPHILS % 4.8 % (0.0-7.0); HEMATOCRIT 32.6 % (42.0-52.0); LYMPHOCYTES # 0.6 10^3/ul (0.8-2.9); LYMPHOCYTES % 7.5 % (15.0-51.0); MEAN CORPUSCULAR HEMOGLOBIN 29.5 pg (29.0-33.0); MEAN CORPUSCULAR HGB CONC 30.7 g/dl (32.0-37.0); MEAN CORPUSCULAR VOLUME 96.2 fl (82.0-101.0); MEAN PLATELET VOLUME 9.5 fl (7.4-10.4); MONOCYTE # 0.7 10^3/ul (0.3-0.9); NEUTROPHIL # 6.1 10^3/ul (1.6-7.5); NEUTROPHILS % 77.7 % (39.0-77.0); PLATELET COUNT 221 10^3/UL (140-415); RED BLOOD COUNT 3.39 10^6/ul (4.70-6.10); RED CELL DISTRIBUTION WIDTH 14.1 % (11.5-14.5); WHITE BLOOD COUNT 7.9 10^3/ul (4.8-10.8)
[2017-03-05 10:34] LABS: CALCIUM 8.4 mg/dl (8.4-10.2); CREATININE 1.13 mg/dl (0.61-1.24); MAGNESIUM 1.8 mg/dl (1.7-2.5); PHOSPHORUS 3.7 mg/dl (2.5-4.9); POTASSIUM 3.9 mmol/L (3.5-5.1)
[2017-03-05] MEDS ORDERED: BARIUM SULFATE 135 ML (E-Z HD) PO ONE (11:11)
--- NOTE | 2017-03-05 13:10 | RADRPT ---
PROCEDURE: Video swallow examination of the esophagus CLINICAL INDICATION: aspiration TECHNIQUE: Real time video cine fluoroscopy of the lateral neck was performed. The patient was gi rhona barium in multiple different consistencies by the speech pathologist. Fluoroscopy time: 3.2 min Number of images/cine sequences: 36 COMPARISON: None. FINDINGS: There is no evidence of penetration. There is no evidence of aspiration. IMPRESSION: No evidence of penetration. No evidence of aspiration. Please refer to the speech pathology notes for more information and recommendations. RPTAT: KK .Marquise Almaraz MD, MD Date Time Electronically viewed and signed by .Marquise Almaraz MD, on 03/05/2017 13:09 .S/
[2017-03-05 13:19] LABS: INR 1.88; PROTIME 21.8 Sec (12.2-14.2); PT RATIO 1.7
--- NOTE | 2017-03-05 16:58 | CONS ---
Date/Time of Note Date/Time of Note DATE: 03/05/17 TIME: 16:54 Assessment/Plan Assessment/Plan Additional Assessment/Plan 81 yowm w/ NICM (35-40%), moderate MR, afib who is s/p R. hip surgery. Had some issues w/ post-op afib w/ RVR and confusion. Today, more oriented. Heart rate is under control overall. No signs of CHF. Ok to transfer to rehab. Considering his EF, would change metoprolol tartrate to succinate. - continue metoprolol tartrate to succinate 50mg bid - continue bumex, statin and spironolactone - anticoagulation for afib - f/u w/ Work as outpt Consultation Date/Type/Reason Admit Date/Time February 25, 2017 at 05:34 Initial Consult Date 03/03/17 Type of Consultation: cardiology Referring Provider: SRINI ZACARIAS MD 24 HR Interval Summary Free Text/Dictation Just finished physical therapy. He feels well. Denies cp, sob, or palpitations Exam/Review of Systems Vital Signs Vitals Vital Signs Date Time Temp Pulse Resp B/P Pulse Ox O2 Delivery O2 Flow Rate FiO2 03/05/17 07:41 98.4 74 18 114/58 98 03/05/17 02:52 2.0 03/04/17 09:23 Room Air Intake and Output 03/04/17 03/04/17 03/05/17 15:00 23:00 07:00 Intake Total 1000 ml 250 ml Output Total 2750 ml 800 ml Balance -1750 ml -550 ml Exam Constitutional: alert, No distress Neck: No jvd Respiratory: clear to auscultation Cardiovascular: irregular rhythm, other (2/6 ABISAI) Extremities: other (trace edema) Results Result Diagram: 03/05/1759 03/05/17 0959 Results 24 hrs Laboratory Tests Test 03/05/17 09:59 03/05/17 12:42 White Blood Count 7.9 Red Blood Count 3.39 L Hemoglobin 10.0 L Hematocrit 32.6 L Mean Corpuscular Volume 96.2 Mean Corpuscular Hemoglobin 29.5 Mean Corpuscular Hemoglobin Concent 30.7 L Red Cell Distribution Width 14.1 Platelet Count 221 Mean Platelet Volume 9.5 Neutrophils % 77.7 H Lymphocytes % 7.5 L Monocytes % 9.0 Eosinophils % 4.8 Basophils % 0.5 Nucleated Red Blood Cells % 0.0 Neutrophils # 6.1 Lymphocytes # 0.6 L Monocytes # 0.7 Eosinophils # 0.4 Basophils # 0.0 Nucleated Red Blood Cells # 0.0 Sodium Level 142 Potassium Level 3.9 Chloride Level 103 Carbon Dioxide Level 30 Anion Gap 13 Blood Urea Nitrogen 15 Creatinine 1.13 Glucose Level 100 Calcium Level 8.4 Phosphorus Level 3.7 Magnesium Level 1.8 Prothrombin Time 21.8 H Prothrombin Time Ratio 1.7 INR International Normalized Ratio 1.88 Medications Medications Current Medications Allopurinol (Zyloprim) 100 mg DAILY PO Last administered on 03/05/17 08:48; Admin Dose 100 MG; Start 02/26/17 at 09:00 Atorvastatin Calcium (Lipitor) 20 mg QHS PO Last administered on 03/03/17 20: 19; Admin Dose 20 MG; Start 02/25/17 at 21:00 Lamotrigine (Lamictal) 100 mg DAILY PO Last administered on 03/05/17 08:51; Admin Dose 100 MG; Start 02/26/17 at 09:00 Metoprolol Tartrate (Lopressor) 50 mg BID PO Last administered on 03/05/17 08: 50; Admin Dose 50 MG; Start 02/25/17 at 21:00 Montelukast Sodium (Singulair) 10 mg QHS PO Last administered on 03/03/17 20: 19; Admin Dose 10 MG; Start 02/25/17 at 21:00 Venlafaxine HCl (Effexor Xr) 150 mg DAILY PO Last administered on 03/05/17 08: 51; Admin Dose 150 MG; Start 02/26/17 at 09:00 Ondansetron HCl (Zofran Inj) 4 mg Q6H PRN IV NAUSEA AND/OR VOMITING; Start at 10:30 Bisacodyl (Dulcolax Supp) 10 mg Q12H PRN [place] CONSTIPATION; Start 02/25/17 at 10: 30 Magnesium Hydroxide (Milk Of Mag) 30 ml BID PRN PO CONSTIPATION; Start at 10:30 Sodium Biphosphate/ Sodium Phosphate (Fleet Enema) 133 ml DAILY PRN [place] CONSTIPATION; Start 02/25/17 at 10:30 Docusate Sodium (Colace) 100 mg BID PO Last administered on 03/05/17 08:51; Admin Dose 100 MG; Start 02/25/17 at 21:00 Diphenhydramine HCl (Benadryl) 25 mg Q6H PRN PO PRURITUS Last administered on 22:54; Admin Dose 25 MG; Start 02/25/17 at 10:30 Salmeterol Xinafoate/ Fluticasone (Advair 250/50 Diskus) 1 inh BID INH Last administered on 03/05/17 08:51; Admin Dose 1 INH; Start 02/25/17 at 12:00 Tamsulosin HCl (Flomax) 0.4 mg HS PO Last administered on 03/03/17 20:19; Admin Dose 0.4 MG; Start 02/25/17 at 21:00 Acetaminophen (Tylenol Tab) 650 mg Q4H PRN PO PAIN AND OR ELEVATED TEMP Last administered on 02/28/17 01:01; Admin Dose 650 MG; Start 02/27/17 at 12:00 Spironolactone (Aldactone) 25 mg DAILY PO Last administered on 03/05/17 08:51; Admin Dose 25 MG; Start 02/28/17 at 14:30 Bisacodyl (Dulcolax) 10 mg BID PRN PO CONSTIPATION Last administered on 05:32; Admin Dose 10 MG; Start 03/01/17 at 15:00 Acetaminophen (Ofirmev 1000mg/ 100ml Iv) 500 mg Q6H PRN IV PAIN Last administered on 03/02/17 14:35; Admin Dose 500 MG; Start 03/02/17 at 00:30 Quetiapine Fumarate (Seroquel) 50 mg HS PO ; Start 03/02/17 at 21:00 Bumetanide (Bumex) 1 mg DAILY PO Last administered on 03/05/17 08:51; Admin Dose 1 MG; Start 03/04/17 at 09:00 Pantoprazole (Protonix Tab) 40 mg BID@06,18 PO Last administered on 03/05/17 05 :31; Admin Dose 40 MG; Start 03/05/17 at 06:00 Warfarin Sodium (Coumadin) 5 mg ONCE@17 ONCE PO ; Start 03/05/17 at 17:00; Stop 03/05/17 at 17:01 CARI RUBALCAVA Mar 05, 2017 16:58
[2017-03-05] MEDS ORDERED: WARFARIN 5 MG TAB PO ONE (17:00)
[2017-03-05] MEDS ORDERED: METOPROLOL 25 MG TAB PO ONE (17:30)
[2017-03-05 18:42] VITALS: BP 117/78
[2017-03-05 19:29] VITALS: BP 112/74; RESP 20
[2017-03-05] MEDS: ATORVASTATIN 20 MG TAB PO SCH (20:29)
[2017-03-05] MEDS: TAMSULOSIN (SR) 0.4 MG CAP PO SCH (20:33)
[2017-03-05] MEDS: MONTELUKAST 10 MG TAB PO SCH (20:34)
[2017-03-05] MEDS: QUETIAPINE 25 MG TAB PO SCH (21:00)
[2017-03-05] MEDS: METOPROLOL (XL) 50 MG TAB PO SCH (21:00)
--- NOTE | 2017-03-06 | RADRPT ---
Vent Rate: 131 bpm RR Interval: 0 msec TN Interval: 0 msec QRS Duration: 106 msec QT Interval: 334 msec QTC Interval: 493 msec P-R-T [place]: 0 - -16 - 139 degrees Atrial fibrillation with rapid ventricular response with premature ventricular or aberrantly conducted complexes ST and T wave abnormality, consider lateral ischemia Abnormal ECG Electronically Signed By: Jose Benitez [id number]
[2017-03-06] MEDS: PANTOPRAZOLE (EC) 40 MG TAB PO SCH ×2 (05:53→17:17)
--- NOTE | 2017-03-06 08:45 | PN ---
Date/Time of Note Date/Time of Note DATE: 03/06/17 TIME: 08:41 Assessment/Plan VTE Prophylaxis VTE Prophylaxis Intervention: SCD's, other (On Coumadin) Lines/Catheters IV Catheter Type (from Nrsg): Saline Lock Guzman in Place (from Nrsg): No Assessment/Plan Assessment/Plan -Pain Meds as needed -Dress change performed today -Continue one-to-one monitoring -Lab values in regards to daily PT/INR not available at this time for close monitoring and adjustment of Coumadin dose. Discussed with charge nurse and will be contacted with new labs when they are readily available for any potential adjustment of Coumadin dose. -Continue monitoring with Internal Medicine -Patient Stable -Currently awaiting authorization for approval to transfer to acute rehab unit for 24/7 monitoring and rehabilitation. Subjective 24 Hr Interval Summary 81-year-old male postop day 9 status post right total hip arthroplasty via anterior route. Patient continues with encephalopathy symptoms. Disoriented on exam today as he states that he "does not remember a thing." Patient has one -to-one monitoring with medical sociologist. medical assistant internal medicine denies any acute events. Denies any issues in regards to the hip. Currently patient is lying comfortably in bed with no signs of any pain. Exam/Review of Systems Vital Signs Vitals Vital Signs Date Time Temp Pulse Resp B/P Pulse Ox O2 Delivery O2 Flow Rate FiO2 03/05/17 19:29 97.9 97 20 112/74 98 03/05/17 18:48 2.0 03/04/17 09:23 Room Air Intake and Output 03/05/17 03/05/17 03/06/17 15:00 23:00 07:00 Intake Total 2000 ml 850 ml Output Total 1650 ml 800 ml Balance 350 ml 50 ml Exam Free Text/Dictation -Hemovac: Removed -Incision: Clean, Dry and Intact without any redness or drainage -Thigh soft -5/5 Quadriceps, Tibialis Anterior, EHL Gastrocnemius/Soleus and Peroneals -Palpable DP/PT, Capillary Refill <2 secs -No Distal Edema -Negative Marilia Sign/No calf pain -Toes Freely Movable Results Result Diagram: 03/05/17 0959 03/05/17 0959 JEAN CARLOS JOHNSON PA-C Mar 06, 2017 08:45
[2017-03-06 09:45] VITALS: BP 126/61; RESP 19
--- NOTE | 2017-03-06 10:24 | CONS ---
Date/Time of Note Date/Time of Note DATE: 03/06/17 TIME: 10:21 Assessment/Plan Assessment/Plan Additional Assessment/Plan 1. 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 Cont current meds as ordered 3. stable for discharge to rehab per Ortho Consultation Date/Type/Reason Admit Date/Time February 25, 2017 at 05:34 Initial Consult Date 03/03/17 Type of Consultation: Internal Medicine Referring Provider: SRINI ZACARIAS MD 24 HR Interval Summary Free Text/Dictation Feeling fine, no acute complaints. Family thinks he is still confused at times, but better currently. Exam/Review of Systems Vital Signs Vitals Vital Signs Date Time Temp Pulse Resp B/P Pulse Ox O2 Delivery O2 Flow Rate FiO2 03/06/17 09:45 98.0 81 19 126/61 98 03/05/17 18:48 2.0 03/04/17 09:23 Room Air Intake and Output 03/05/17 03/05/17 03/06/17 14:59 22:59 06:59 Intake Total 2000 ml 850 ml Output Total 1650 ml 800 ml Balance 350 ml 50 ml Exam Constitutional: alert, oriented, well developed Psych: nl mood/affect, no complaints Respiratory: clear to auscultation, normal air movement Cardiovascular: irregular rhythm, nl pulses, regular rate and rhythm Neurological: nl mental status (A&O x 4 ), nl speech Results Result Diagram: 03/05/17 0959 03/05/17 0959 Results 24 hrs Laboratory Tests Test 03/05/17 12:42 Prothrombin Time 21.8 H Prothrombin Time Ratio 1.7 INR International Normalized Ratio 1.88 Medications Medications Current Medications Allopurinol (Zyloprim) 100 mg DAILY PO Last administered on 03/05/17 08:48; Admin Dose 100 MG; Start 02/26/17 at 09:00 Atorvastatin Calcium (Lipitor) 20 mg QHS PO Last administered on 03/05/17 20:29 ; Admin Dose 20 MG; Start 02/25/17 at 21:00 Lamotrigine (Lamictal) 100 mg DAILY PO Last administered on 03/05/17 08:51; Admin Dose 100 MG; Start 02/26/17 at 09:00 Montelukast Sodium (Singulair) 10 mg QHS PO Last administered on 03/05/17 20:34 ; Admin Dose 10 MG; Start 02/25/17 at 21:00 Venlafaxine HCl (Effexor Xr) 150 mg DAILY PO Last administered on 03/05/17 08: 51; Admin Dose 150 MG; Start 02/26/17 at 09:00 Ondansetron HCl (Zofran Inj) 4 mg Q6H PRN IV NAUSEA AND/OR VOMITING; Start at 10:30 Bisacodyl (Dulcolax Supp) 10 mg Q12H PRN [place] CONSTIPATION; Start 02/25/17 at 10: 30 Magnesium Hydroxide (Milk Of Mag) 30 ml BID PRN PO CONSTIPATION; Start at 10:30 Sodium Biphosphate/ Sodium Phosphate (Fleet Enema) 133 ml DAILY PRN [place] CONSTIPATION; Start 02/25/17 at 10:30 Docusate Sodium (Colace) 100 mg BID PO Last administered on 03/05/17 20:29; Admin Dose 100 MG; Start 02/25/17 at 21:00 Diphenhydramine HCl (Benadryl) 25 mg Q6H PRN PO PRURITUS Last administered on 22:54; Admin Dose 25 MG; Start 02/25/17 at 10:30 Salmeterol Xinafoate/ Fluticasone (Advair 250/50 Diskus) 1 inh BID INH Last administered on 03/05/17 20:36; Admin Dose 1 INH; Start 02/25/17 at 12:00 Tamsulosin HCl (Flomax) 0.4 mg HS PO Last administered on 03/05/17 20:33; Admin Dose 0.4 MG; Start 02/25/17 at 21:00 Acetaminophen (Tylenol Tab) 650 mg Q4H PRN PO PAIN AND OR ELEVATED TEMP Last administered on 02/28/17 01:01; Admin Dose 650 MG; Start 02/27/17 at 12:00 Spironolactone (Aldactone) 25 mg DAILY PO Last administered on 03/05/17 08:51; Admin Dose 25 MG; Start 02/28/17 at 14:30 Bisacodyl (Dulcolax) 10 mg BID PRN PO CONSTIPATION Last administered on 05:32; Admin Dose 10 MG; Start 03/01/17 at 15:00 Acetaminophen (Ofirmev 1000mg/ 100ml Iv) 500 mg Q6H PRN IV PAIN Last administered on 03/02/17 14:35; Admin Dose 500 MG; Start 03/02/17 at 00:30 Quetiapine Fumarate (Seroquel) 50 mg HS PO ; Start 03/02/17 at 21:00 Bumetanide (Bumex) 1 mg DAILY PO Last administered on 03/05/17 08:51; Admin Dose 1 MG; Start 03/04/17 at 09:00 Pantoprazole (Protonix Tab) 40 mg BID@06,18 PO Last administered on 03/06/17 05 :53; Admin Dose 40 MG; Start 03/05/17 at 06:00 Metoprolol Succinate (Toprol Xl) 50 mg BID PO ; Start 03/05/17 at 21:00 GRUPO JONES MD Mar 06, 2017 10:24
[2017-03-06] MEDS: SALMETEROL/FLUTICASONE 250/50 INHA INH SCH ×2 (11:24→21:07)
[2017-03-06] MEDS: SPIRONOLACTONE 25 MG TAB PO SCH (11:25)
[2017-03-06] MEDS: BUMETANIDE 0.5 MG TAB PO SCH (11:26)
[2017-03-06] MEDS: VENLAFAXINE (XR) 75 MG CAP PO SCH (11:27)
[2017-03-06] MEDS: METOPROLOL (XL) 50 MG TAB PO SCH ×2 (11:27→21:06)
[2017-03-06] MEDS: ALLOPURINOL 100 MG TAB PO SCH (11:28)
[2017-03-06] MEDS: DOCUSATE SODIUM 100 MG CAP PO SCH ×2 (11:28→21:07)
[2017-03-06] MEDS: LAMOTRIGINE 100 MG TAB PO SCH (11:28)
[2017-03-06 11:32] LABS: ADD SCAN DIFF NO
[2017-03-06 11:53] LABS: ALBUMIN 3.8 g/dl (3.3-4.9); ALBUMIN/GLOBULIN RATIO 1.4; BILIRUBIN,INDIRECT 0.8 mg/dl (0-1.1); BILIRUBIN,TOTAL 0.8 mg/dl (0.2-1.3); CALCIUM 8.6 mg/dl (8.4-10.2); CREATININE 1.2 mg/dl (0.61-1.24); TOTAL PROTEIN 6.5 g/dl (6.1-8.1)
[2017-03-06 11:58] LABS: BASOPHIL # 0.1 10^3/ul (0.0-0.1); BASOPHILS % 0.8 % (0.0-2.0); EOSINOPHILS # 0.4 10^3/ul (0.0-0.5); EOSINOPHILS % 4.4 % (0.0-7.0); HEMATOCRIT 33.5 % (42.0-52.0); LYMPHOCYTES # 0.6 10^3/ul (0.8-2.9); LYMPHOCYTES % 7.7 % (15.0-51.0); MEAN CORPUSCULAR HEMOGLOBIN 28.7 pg (29.0-33.0); MEAN CORPUSCULAR HGB CONC 29.9 g/dl (32.0-37.0); MEAN PLATELET VOLUME 9.6 fl (7.4-10.4); MONOCYTE # 0.7 10^3/ul (0.3-0.9); MONOCYTES % 9.3 % (0.0-11.0); NEUTROPHIL # 6.2 10^3/ul (1.6-7.5); NEUTROPHILS % 77.3 % (39.0-77.0); PLATELET COUNT 246 10^3/UL (140-415); RED BLOOD COUNT 3.49 10^6/ul (4.70-6.10); RED CELL DISTRIBUTION WIDTH 14.2 % (11.5-14.5)
[2017-03-06] MEDS ORDERED: LIDOCAINE 4% CR TOP PRN (12:00)
[2017-03-06 12:02] LABS: INR 1.86; PROTIME 21.6 Sec (12.2-14.2); PT RATIO 1.7
[2017-03-06 12:03] LABS: PARTIAL THROMBOPLASTIN TIME 42.4 Sec (25.0-35.0)
[2017-03-06] MEDS ORDERED: WARFARIN 5 MG TAB PO ONE (17:00)
[2017-03-06] MEDS: ACETAMINOPHEN 325 MG TAB PO PRN (19:43)
[2017-03-06] MEDS: QUETIAPINE 25 MG TAB PO SCH (21:00)
[2017-03-06 21:02] VITALS: BP 141/65; RESP 19
[2017-03-06] MEDS: TAMSULOSIN (SR) 0.4 MG CAP PO SCH (21:06)
[2017-03-06] MEDS: MONTELUKAST 10 MG TAB PO SCH (21:07)
[2017-03-06] MEDS: ATORVASTATIN 20 MG TAB PO SCH (21:07)
[2017-03-07] MEDS: ACETAMINOPHEN 325 MG TAB PO PRN ×4 (04:34→20:42)
[2017-03-07] MEDS: DIPHENHYDRAMINE 25 MG CAP PO PRN (04:43)
[2017-03-07 05:44] LABS: INR 1.84; PROTIME 21.4 Sec (12.2-14.2); PT RATIO 1.7
[2017-03-07] MEDS: PANTOPRAZOLE (EC) 40 MG TAB PO SCH ×2 (06:13→18:17)
[2017-03-07 08:00] VITALS: BP 122/74; PULSE 90; RESP 20
[2017-03-07] MEDS: SALMETEROL/FLUTICASONE 250/50 INHA INH SCH ×2 (09:20→20:41)
[2017-03-07] MEDS: VENLAFAXINE (XR) 75 MG CAP PO SCH (09:20)
[2017-03-07] MEDS: SPIRONOLACTONE 25 MG TAB PO SCH (09:20)
[2017-03-07] MEDS: BUMETANIDE 0.5 MG TAB PO SCH (09:20)
[2017-03-07] MEDS: DOCUSATE SODIUM 100 MG CAP PO SCH ×2 (09:20→20:41)
[2017-03-07] MEDS: LAMOTRIGINE 100 MG TAB PO SCH (09:20)
[2017-03-07] MEDS: ALLOPURINOL 100 MG TAB PO SCH (09:21)
[2017-03-07] MEDS: METOPROLOL (XL) 50 MG TAB PO SCH ×2 (09:21→20:44)
--- NOTE | 2017-03-07 10:35 | PN ---
Date/Time of Note Date/Time of Note DATE: 03/07/17 TIME: 10:30 Assessment/Plan VTE Prophylaxis VTE Prophylaxis Intervention: ambulation, SCD's Lines/Catheters IV Catheter Type (from Nrsg): Saline Lock Guzman in Place (from Nrsg): No Assessment/Plan Assessment/Plan -Pain Meds as needed -Dress change performed today -OOB with PT -Coumadin 6 mg ordered today per Dr. Tovar request/SCDs for DVT Prophylaxis -Continue monitoring with Internal Medicine -Patient Stable -Currently awaiting transfer to ARU Subjective 24 Hr Interval Summary 81-year-old male postop day 10 status post right total hip arthroplasty via anterior route. Since yesterday, patient has significantly improved in regards to orientation. He is able to state his name, identify the operative hip and states the surgery that was performed. There is still delayed response when asked a question but answer is appropriate to the question that is asked. Denies any pain to the right hip. Currently patient is seated in an upright position comfortably at 90. Denies any chest pain or tightness. Constitutional: no complaints Pain Control: well controlled Exam/Review of Systems Vital Signs Vitals Vital Signs Date Time Temp Pulse Resp B/P Pulse Ox O2 Delivery O2 Flow Rate FiO2 03/07/17 08:00 98.2 90 20 122/74 98 Room Air 03/05/17 18:48 2.0 Intake and Output 03/06/17 03/06/17 03/07/17 15:00 23:00 07:00 Intake Total 1000 ml 900 ml Output Total 850 ml Balance 1000 ml 50 ml Exam Free Text/Dictation -Incision: Clean, Dry and Intact without any redness or drainage -Thigh soft -5/5 Quadriceps, Tibialis Anterior, EHL Gastrocnemius/Soleus and Peroneals -Normal Sensation -Palpable DP/PT, Capillary Refill <2 secs -No Distal Edema -Negative Marilia Sign/No calf pain -Toes Freely Movable Results Result Diagram: 03/06/17 1115 03/06/17 1115 JEAN CARLOS JOHNSON PA-C Mar 07, 2017 10:35
[2017-03-07] MEDS ORDERED: WARFARIN 3 MG TAB PO ONE (11:00)
--- NOTE | 2017-03-07 11:17 | CONS ---
Date/Time of Note Date/Time of Note DATE: 03/07/17 TIME: 11:16 Assessment/Plan Assessment/Plan Additional Assessment/Plan 1. 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 Cont current meds as ordered 3. cont Coumadin 4. stable for discharge to acute rehab per Ortho Consultation Date/Type/Reason Admit Date/Time February 25, 2017 at 05:34 Initial Consult Date 03/03/17 Type of Consultation: Internal Medicine Referring Provider: SRINI ZACARIAS MD 24 HR Interval Summary Free Text/Dictation Feeling fine, wants to know when he can leave the hospital. Exam/Review of Systems Vital Signs Vitals Vital Signs Date Time Temp Pulse Resp B/P Pulse Ox O2 Delivery O2 Flow Rate FiO2 03/07/17 08:00 98.2 90 20 122/74 98 Room Air 03/05/17 18:48 2.0 Intake and Output 03/06/17 03/06/17 03/07/17 15:00 23:00 07:00 Intake Total 1000 ml 900 ml Output Total 850 ml Balance 1000 ml 50 ml Exam Constitutional: alert, oriented, well developed Respiratory: clear to auscultation, normal air movement Cardiovascular: nl pulses, regular rate and rhythm Results Result Diagram: 03/06/17 1115 03/06/17 1115 Results 24 hrs Laboratory Tests Test 03/07/17 04:38 Prothrombin Time 21.4 H Prothrombin Time Ratio 1.7 INR International Normalized Ratio 1.84 Medications Medications Current Medications Allopurinol (Zyloprim) 100 mg DAILY PO Last administered on 03/07/17 09:21; Admin Dose 100 MG; Start 02/26/17 at 09:00 Atorvastatin Calcium (Lipitor) 20 mg QHS PO Last administered on 03/06/17 21:07 ; Admin Dose 20 MG; Start 02/25/17 at 21:00 Lamotrigine (Lamictal) 100 mg DAILY PO Last administered on 03/07/17 09:20; Admin Dose 100 MG; Start 02/26/17 at 09:00 Montelukast Sodium (Singulair) 10 mg QHS PO Last administered on 03/06/17 21:07 ; Admin Dose 10 MG; Start 02/25/17 at 21:00 Venlafaxine HCl (Effexor Xr) 150 mg DAILY PO Last administered on 03/07/17 09: 20; Admin Dose 150 MG; Start 02/26/17 at 09:00 Ondansetron HCl (Zofran Inj) 4 mg Q6H PRN IV NAUSEA AND/OR VOMITING; Start at 10:30 Bisacodyl (Dulcolax Supp) 10 mg Q12H PRN [place] CONSTIPATION; Start 02/25/17 at 10: 30 Magnesium Hydroxide (Milk Of Mag) 30 ml BID PRN PO CONSTIPATION; Start at 10:30 Sodium Biphosphate/ Sodium Phosphate (Fleet Enema) 133 ml DAILY PRN [place] CONSTIPATION; Start 02/25/17 at 10:30 Docusate Sodium (Colace) 100 mg BID PO Last administered on 03/07/17 09:20; Admin Dose 100 MG; Start 02/25/17 at 21:00 Diphenhydramine HCl (Benadryl) 25 mg Q6H PRN PO PRURITUS Last administered on 04:43; Admin Dose 25 MG; Start 02/25/17 at 10:30 Salmeterol Xinafoate/ Fluticasone (Advair 250/50 Diskus) 1 inh BID INH Last administered on 03/07/17 09:20; Admin Dose 1 INH; Start 02/25/17 at 12:00 Tamsulosin HCl (Flomax) 0.4 mg HS PO Last administered on 03/06/17 21:06; Admin Dose 0.4 MG; Start 02/25/17 at 21:00 Acetaminophen (Tylenol Tab) 650 mg Q4H PRN PO PAIN AND OR ELEVATED TEMP Last administered on 03/07/17 09:52; Admin Dose 650 MG; Start 02/27/17 at 12:00 Spironolactone (Aldactone) 25 mg DAILY PO Last administered on 03/07/17 09:20; Admin Dose 25 MG; Start 02/28/17 at 14:30 Bisacodyl (Dulcolax) 10 mg BID PRN PO CONSTIPATION Last administered on 05:32; Admin Dose 10 MG; Start 03/01/17 at 15:00 Acetaminophen (Ofirmev 1000mg/ 100ml Iv) 500 mg Q6H PRN IV PAIN Last administered on 03/02/17 14:35; Admin Dose 500 MG; Start 03/02/17 at 00:30 Quetiapine Fumarate (Seroquel) 50 mg HS PO ; Start 03/02/17 at 21:00 Bumetanide (Bumex) 1 mg DAILY PO Last administered on 03/07/17 09:20; Admin Dose 1 MG; Start 03/04/17 at 09:00 Pantoprazole (Protonix Tab) 40 mg BID@18 PO Last administered on 03/07/17 06 :13; Admin Dose 40 MG; Start 03/05/17 at 06:00 Metoprolol Succinate (Toprol Xl) 50 mg BID PO Last administered on 03/07/17 09: 21; Admin Dose 50 MG; Start 03/05/17 at 21:00 Lidocaine (Lmx 4% Plus) 1 applic PRN PRN TOP pain Last administered on 04:37; Admin Dose 1 APPLIC; Start 03/06/17 at 12:00 GRUPO JONES MD Mar 07, 2017 11:17
[2017-03-07 20:00] VITALS: BP 107/78; RESP 20
[2017-03-07] MEDS: MONTELUKAST 10 MG TAB PO SCH (20:42)
[2017-03-07] MEDS: TAMSULOSIN (SR) 0.4 MG CAP PO SCH (20:42)
[2017-03-07] MEDS: ATORVASTATIN 20 MG TAB PO SCH (20:42)
[2017-03-07] MEDS: QUETIAPINE 25 MG TAB PO SCH (20:48)
[2017-03-07 21:00] VITALS: BP 99/69
[2017-03-08] MEDS: PANTOPRAZOLE (EC) 40 MG TAB PO SCH (06:23)
[2017-03-08] MEDS: DIPHENHYDRAMINE 25 MG CAP PO PRN (06:23)
[2017-03-08 07:21] VITALS: BP 110/57; RESP 18
--- NOTE | 2017-03-08 08:47 | PN ---
Date/Time of Note Date/Time of Note DATE: 03/08/17 TIME: 08:45 Assessment/Plan Lines/Catheters IV Catheter Type (from Nrsg): Saline Lock Guzman in Place (from Nrsg): No Assessment/Plan Assessment/Plan Improving, s/p right anterior MATT -pain meds. Use tylenol only for pain -Coumadin to be dosed off INR to be drawn today -SCDs BLE for DVT prophylaxis -OOB with PT -jason removed and steri strips applied -discharge home today -follow up in the office in 1 week Subjective 24 Hr Interval Summary No acute overnight events. Denies significant pain. Denies f/c. Much more alert now. VSS, afebrile. Daughter would like him to go home today instead of [facility] or [facility]. Exam/Review of Systems Vital Signs Vitals Vital Signs Date Time Temp Pulse Resp B/P Pulse Ox O2 Delivery O2 Flow Rate FiO2 03/08/17 07:21 98.1 106 18 110/57 92 03/07/17 08:00 Room Air 03/05/17 18:48 2.0 Intake and Output 03/07/17 03/07/17 03/08/17 15:00 23:00 07:00 Intake Total 1200 ml 700 ml Balance 1200 ml 700 ml Exam Free Text/Dictation Dressing dry Incision clean, dry, and intact without redness or drainage 5/5 Quadriceps, Tibialis Anterior, EHL, Gastroc, Soleus, Peroneals Normal sensation Palpable DT/PT, CR <2 sec No distal edema Results Result Diagram: 03/06/17 1115 03/06/17 1115 ZEENAT PINO PA-C Mar 08, 2017 08:47
[2017-03-08] MEDS: BUMETANIDE 0.5 MG TAB PO SCH (09:29)
[2017-03-08] MEDS: DOCUSATE SODIUM 100 MG CAP PO SCH (09:29)
[2017-03-08] MEDS: SALMETEROL/FLUTICASONE 250/50 INHA INH SCH (09:29)
[2017-03-08] MEDS: ALLOPURINOL 100 MG TAB PO SCH (09:30)
[2017-03-08] MEDS: SPIRONOLACTONE 25 MG TAB PO SCH (09:30)
[2017-03-08] MEDS: LAMOTRIGINE 100 MG TAB PO SCH (09:31)
[2017-03-08] MEDS: METOPROLOL (XL) 50 MG TAB PO SCH (09:31)
[2017-03-08] MEDS: VENLAFAXINE (XR) 75 MG CAP PO SCH (09:31)
--- NOTE | 2017-03-08 09:50 | CONS ---
Date/Time of Note Date/Time of Note DATE: 03/08/17 TIME: 09:47 Assessment/Plan Assessment/Plan Chief Complaint/Hosp Course 1. Postop right total hip arthroplasty 2. Altered level of consciousness which has resolved and the patient is back to his normal baseline mental status. 3. Atrial fibrillation , his heart rate is well controlled at this time. He is on Coumadin. 4. Congestive heart failure , seems compensated at this time 5. We had a long discussion about him going to a rehab center, [facility]. I told the patient that the advantage to going to a rehab center is that he would get physical therapy every day and he seems interested. He will decide upon this today. If he does not go to the rehab center then he will go home. Problems: Consultation Date/Type/Reason Admit Date/Time February 25, 2017 at 05:34 Initial Consult Date 03/03/17 Type of Consultation: Internal Medicine Referring Provider: SRINI ZACARIAS MD 24 HR Interval Summary Free Text/Dictation He is lucid today and seems back to his baseline mental status. Constitutional: improved, no complaints Exam/Review of Systems Vital Signs Vitals Vital Signs Date Time Temp Pulse Resp B/P Pulse Ox O2 Delivery O2 Flow Rate FiO2 03/08/17 07:21 98.1 106 18 110/57 92 03/07/17 08:00 Room Air 03/05/17 18:48 2.0 Intake and Output 03/07/17 03/07/17 03/08/17 15:00 23:00 07:00 Intake Total 1200 ml 700 ml Balance 1200 ml 700 ml Exam Constitutional: alert, oriented, well developed Respiratory: clear to auscultation, normal air movement Cardiovascular: edema, irregular rhythm Gastrointestinal: soft Results Result Diagram: 03/06/17 1115 03/06/17 1115 Medications Medications Current Medications Allopurinol (Zyloprim) 100 mg DAILY PO Last administered on 03/08/17 09:30; Admin Dose 100 MG; Start 02/26/17 at 09:00 Atorvastatin Calcium (Lipitor) 20 mg QHS PO Last administered on 03/07/17 20:42 ; Admin Dose 20 MG; Start 02/25/17 at 21:00 Lamotrigine (Lamictal) 100 mg DAILY PO Last administered on 03/08/17 09:31; Admin Dose 100 MG; Start 02/26/17 at 09:00 Montelukast Sodium (Singulair) 10 mg QHS PO Last administered on 03/07/17 20:42 ; Admin Dose 10 MG; Start 02/25/17 at 21:00 Venlafaxine HCl (Effexor Xr) 150 mg DAILY PO Last administered on 03/08/17 09: 31; Admin Dose 150 MG; Start 02/26/17 at 09:00 Ondansetron HCl (Zofran Inj) 4 mg Q6H PRN IV NAUSEA AND/OR VOMITING; Start at 10:30 Bisacodyl (Dulcolax Supp) [address] CONSTIPATION; Start 02/25/17 at 10: 30 Magnesium Hydroxide (Milk Of Mag) 30 ml BID PRN PO CONSTIPATION; Start at 10:30 Sodium Biphosphate/ Sodium Phosphate (Fleet Enema) [address] CONSTIPATION; Start 02/25/17 at 10:30 Docusate Sodium (Colace) 100 mg BID PO Last administered on 03/08/17 09:29; Admin Dose 100 MG; Start 02/25/17 at 21:00 Diphenhydramine HCl (Benadryl) 25 mg Q6H PRN PO PRURITUS Last administered on 06:23; Admin Dose 25 MG; Start 02/25/17 at 10:30 Salmeterol Xinafoate/ Fluticasone (Advair 250/50 Diskus) 1 inh BID INH Last administered on 03/08/17 09:29; Admin Dose 1 INH; Start 02/25/17 at 12:00 Tamsulosin HCl (Flomax) 0.4 mg HS PO Last administered on 03/07/17 20:42; Admin Dose 0.4 MG; Start 02/25/17 at 21:00 Acetaminophen (Tylenol Tab) 650 mg Q4H PRN PO PAIN AND OR ELEVATED TEMP Last administered on 03/07/17 20:42; Admin Dose 650 MG; Start 02/27/17 at 12:00 Spironolactone (Aldactone) 25 mg DAILY PO Last administered on 03/08/17 09:30; Admin Dose 25 MG; Start 02/28/17 at 14:30 Bisacodyl (Dulcolax) 10 mg BID PRN PO CONSTIPATION Last administered on 05:32; Admin Dose 10 MG; Start 03/01/17 at 15:00 Acetaminophen (Ofirmev 1000mg/ 100ml Iv) 500 mg Q6H PRN IV PAIN Last administered on 03/02/17 14:35; Admin Dose 500 MG; Start 03/02/17 at 00:30 Quetiapine Fumarate (Seroquel) 50 mg HS PO ; Start 03/02/17 at 21:00 Bumetanide (Bumex) 1 mg DAILY PO Last administered on 03/08/17 09:29; Admin Dose 1 MG; Start 03/04/17 at 09:00 Pantoprazole (Protonix Tab) 40 mg BID@,18 PO Last administered on 03/08/17 06 :23; Admin Dose 40 MG; Start 03/05/17 at 06:00 Metoprolol Succinate (Toprol Xl) 50 mg BID PO Last administered on 03/08/17 09: 31; Admin Dose 50 MG; Start 03/05/17 at 21:00 Lidocaine (Lmx 4% Plus) 1 applic PRN PRN TOP pain Last administered on 04:37; Admin Dose 1 APPLIC; Start 03/06/17 at 12:00 RIVKA SANCHEZ MD Mar 08, 2017 09:50
[2017-03-08 12:57] LABS: INR 2.17; PROTIME 24.4 Sec (12.2-14.2); PT RATIO 1.9
[2017-03-08] MEDS ORDERED: WARFARIN 5 MG TAB PO ONE (13:30)
[2017-03-08] MEDS: ACETAMINOPHEN 325 MG TAB PO PRN (14:25)
[2017-03-08 16:02] LABS: ADD SCAN DIFF NO
[2017-03-08 16:05] LABS: BASOPHIL # 0.1 10^3/ul (0.0-0.1); BASOPHILS % 0.7 % (0.0-2.0); EOSINOPHILS # 0.5 10^3/ul (0.0-0.5); EOSINOPHILS % 5.1 % (0.0-7.0); HEMATOCRIT 34.6 % (42.0-52.0); HEMOGLOBIN 10.6 g/dl (14.0-18.0); LYMPHOCYTES # 0.8 10^3/ul (0.8-2.9); LYMPHOCYTES % 8.2 % (15.0-51.0); MEAN CORPUSCULAR HEMOGLOBIN 29.2 pg (29.0-33.0); MEAN CORPUSCULAR HGB CONC 30.6 g/dl (32.0-37.0); MEAN CORPUSCULAR VOLUME 95.3 fl (82.0-101.0); MEAN PLATELET VOLUME 9.3 fl (7.4-10.4); MONOCYTE # 0.8 10^3/ul (0.3-0.9); MONOCYTES % 8.1 % (0.0-11.0); NEUTROPHIL # 7.6 10^3/ul (1.6-7.5); NEUTROPHILS % 77.2 % (39.0-77.0); PLATELET COUNT 309 10^3/UL (140-415); RED BLOOD COUNT 3.63 10^6/ul (4.70-6.10); WHITE BLOOD COUNT 9.9 10^3/ul (4.8-10.8)
[2017-03-08 16:30] LABS: ALBUMIN 4.1 g/dl (3.3-4.9); ALBUMIN/GLOBULIN RATIO 1.36; BILIRUBIN,INDIRECT 0.3 mg/dl (0-1.1); BILIRUBIN,TOTAL 0.3 mg/dl (0.2-1.3); CREATININE 1.15 mg/dl (0.61-1.24); POTASSIUM 3.9 mmol/L (3.5-5.1); TOTAL PROTEIN 7.1 g/dl (6.1-8.1)
--- NOTE | 2017-03-09 07:16 | DS ---
DATE OF ADMISSION: 02/25/2017 DATE OF DISCHARGE: 03/08/2017 CONDITION UPON DISCHARGE: Stable. ADMITTING DIAGNOSIS: Right hip osteoarthritis. DISCHARGE DIAGNOSIS: Status post right anterior total hip arthroplasty. PROCEDURE PERFORMED: Right anterior total hip arthroplasty. HOSPITAL COURSE: This is a 81-year-old male who was seen in clinic complaining of right hip pain. X-rays demonstrated advanced osteoarthritis of the right hip and it was thought he would benefit from a right total hip arthroplasty. On 02/25/2017, the patient was admitted and taken to the operating room where he underwent a right anterior total hip arthroplasty. There were no intraoperative complications. He tolerated the procedure well. He was taken to the recovery room in stable condition. Pain was controlled with oral pain medication. He was started on Coumadin and SCDs for DVT prophylaxis. He did have a complicated postoperative course and, in the subsequent days, developed altered mental status and sundowning. The patient was increasingly agitated during this period and required a 1 on 1 sitter 24 hours a day. He began to improve and return to his normal baseline on postoperative day 7. He was monitored for some time and was stable for discharge on postoperative day 10. During the hospital course, he continued to do physical therapy and was making satisfactory progress. Prior to discharge, the incision was inspected and noted to be clean, dry, and intact. Dressing changes were done prior to the patient being transferred to the [facility]. LABORATORY ANALYSIS: Most recent was a hemoglobin of 10.0, hematocrit 32.5. Chemistry panel was within normal limits. INR upon discharge was 2.17. DISCHARGE MEDICATIONS: 1. Tylenol as needed for pain. 2. Coumadin 1 mg tablets. 3. Coumadin 2 mg tablets. 4. Additionally, the patient is to resume all his normal home medications. DISCHARGE INSTRUCTIONS: The patient will be transferred to [facility] in stable condition. He is to resume a normal diet. He is weightbearing as tolerated on the right lower extremity. He will continue physical therapy at the [facility]. He will be discharged to the facility with the medication noted above and is to resume all his normal home medication. The patient also to avoid any narcotics versus sedating medication. The patient is to call the office or go to the emergency room for any concerns including increased redness, swelling, drainage, fever, or any concerns regarding the operation or site of incision. FOLLOWUP: The patient is to follow up in the office in 1 week. Dictated By: ZEENAT ROMO for KRISTINA ZAPATA/KONRAD Conf#: [id number] DID#: [id number] MTDD
== END 2017-03-08 17:25 | DRG 469 ==
LOC: REC 05:34 → MS1 14:07
PROVIDERS: ADMIT Orthopaedic Surgery; ATTEND Orthopaedic Surgery
PROC: 0SR904Z Replacement of Right Hip Joint with Ceramic on Polyethylene Synthetic Substitute, Open Approach (ICD-10-PCS; principal; 2017-02-25 07:00)
DX: M16.11 Unilateral primary osteoarthritis, right hip (principal); G92 Toxic encephalopathy; F05 Delirium due to known physiological condition; I42.0 Dilated cardiomyopathy; I50.9 Heart failure, unspecified; I13.0 Hypertensive heart and chronic kidney disease with heart failure and stage 1 through stage 4 chronic kidney disease, or unspecified chronic kidney disease; I34.0 Nonrheumatic mitral (valve) insufficiency; J44.9 Chronic obstructive pulmonary disease, unspecified; G47.30 Sleep apnea, unspecified; E78.5 Hyperlipidemia, unspecified; Z87.891 Personal history of nicotine dependence; N40.0 Benign prostatic hyperplasia without lower urinary tract symptoms; G47.00 Insomnia, unspecified; I48.2 Chronic atrial fibrillation; N18.9 Chronic kidney disease, unspecified
CPT/HCPCS: 36430; 36600; 70450; 71010; 72170; 73500; 73530; 74230; 80048; 80053; 80076; 81001; 82140; 82803; 83735; 83880; 84100; 84443; 85014; 85018; 85025; 85610; 85730; 86850; 86900; 86901; 86920; 87040; 87081; 87086; 88304; 88311; 92610; 92611; 93005; 93971; 97003; 97110; 97116; 97163; 97166; 97530; C1776; C9113; C9290; J0131; J0171; J0690; J0697; J0735; J1100; J1170; J1630; J1644; J1885; J2060; J2250; J2274; J2370; J2405; J2543; J3010; J3370; J3475; J7040; J7050; J7120; P9016

== ENCOUNTER → 2017-03-15 | Outpatient (CLI) | payer MEDICARE, OTHER ==
[~2017-03-15] MED LIST changes: +ALLO100T PO; +ATOR20TA38 PO; -BENA5TAB2; +BUME0.5T PO; -CETI1SYR3; -DOXA1TAB38; +ESOM40CA PO; -EXPAREL NOTE (BUPIVICAINE LIPOSOMAL) XX SCH; -EZET1TAB9; +GUAI-602 PO; +LAMO100T PO; +METO-429 PO; +MONT10TA24 PO; -MONT4TAB7; +MUPI15CR9 TOP; -OMEP10CA2; -OXYC5CAP17; +OXYM15SP34 NASAL; +PENT400T2 PO; +POTA20LI5 PO; +SENN15TA PO; +SPIR100T31 PO; +SYMB80120 INHALATION; +TAMS0.4C2 PO; +TEMA15CA PO; +TIOT18CA INHALATION; +TOBR5DRO14 BOTH EYES; -UBID30CA12; +VENL150C94 PO; -VENL25TA17; +WARF1TAB47 PO; +WARF2TAB PO
--- NOTE | 2017-03-15 11:46 | RADRPT ---
PROCEDURE: XR Right Hip. CLINICAL INDICATION: No. Pain. TECHNIQUE: AP and frog lateral views of the right hip were performed. COMPARISON: No. FINDINGS: There is a total right hip arthroplasty. The components are anatomically aligned with no evidence o f loosening. There is no evidence of a fracture. IMPRESSION: Status post total right hip arthroplasty. RPTAT:AAJJ Physician Monalisa Date Time Electronically viewed and signed by Jon Brown Physician on 03/15/2017 11:46 BILL/
--- NOTE | 2017-03-15 11:53 | HKNOTE ---
DATE OF SERVICE: 03/15/2017 INTERVAL HISTORY: The patient presents today for a postoperative evaluation on his right hip. He is 3 weeks status post right anterior total hip arthroplasty. He is doing much better, overall. He has had no evidence of agitated behavior or sundowning since he left the hospital. He is currently at [facility]. He is progressing very well with physical therapy. He denies any fevers or chills. He is requesting to go home from the [facility]. He presents today for his first postoperative evaluation. PHYSICAL EXAMINATION: On exam today, he is alert and oriented x4 and in no acute distress. Exam of the incision demonstrates it to be clean, dry and intact. It is well healed at this point. The jason were removed in the hospital. There is no erythema, warmth pus or drainage noted. There is no ecchymosis noted. He has no pain with passive range of motion of the right hip. He is ambulatory with minimal discomfort. The compartments are soft. Neurovascular status is intact distally. Homans sign is negative. IMAGING: X-rays of the right hip are obtained today and reviewed by me. They demonstrate good anatomic alignment with no fractures or dislocations identified. ASSESSMENT: Ten days status post right anterior total hip arthroplasty. PLAN: The incision is clean, dry, intact and well healing. He is currently on Coumadin for DVT prophylaxis, we will switch back to his preoperative Xarelto dose beginning tomorrow. Additionally, he should continue physical therapy at the prison facility, but is stable for discharge home. We will speak to [facility] to begin discharge planning for the patient. Additionally, he will continue physical therapy with [facility] upon discharge from the [facility]. We will see him back in 6 weeks for repeat evaluation. If he has any concerns in the meantime, he is to call the office. Dictated By: ZEENAT ROMO for KRISTINA ZAPATA/KONRAD Conf#: [id number] DID#: [id number] LORI
--- NOTE | 2017-03-15 11:55 | RADRPT ---
PROCEDURE: XR Pelvis. CLINICAL INDICATION: Hip pain TECHNIQUE: Single AP view performed. COMPARISON: 02/25/2017 FINDINGS: There is a right total hip replacement. There is no evidence of loosening of the prosthesis. No hard cadena failure is identified. There is moderate left hip osteoarthrosis. This is associated with joint space narrowing, subchondra l sclerosis and osteophytosis. There is normal osseous mineralization. No fractures or osseous les ions are identified. The soft tissues are unremarkable. IMPRESSION: Right total hip replacement. Moderate left hip osteoarthrosis. RPTAT: HGDB .Jacob Rojas MD, Date Time Electronically viewed and signed by .Jacob Rojas MD, on 03/15/2017 11:54 .B/
== END | disposition home or self-care (01) ==
LOC: HKI 11:06
PROVIDERS: ATTEND Orthopaedic Surgery
DX: Z47.1 Aftercare following joint replacement surgery (principal); Z96.641 Presence of right artificial hip joint
CPT/HCPCS: 72170; 73501

== ENCOUNTER → 2017-04-12 | Outpatient (CLI) | payer MEDICARE, OTHER ==
--- NOTE | 2017-04-12 16:39 | RADRPT ---
PROCEDURE: XR Right hip and pelvis. CLINICAL INDICATION: Right hip pain. Pelvic pain. Postop. TECHNIQUE: Two views. Frontal pelvis and frontal right hip. COMPARISON: 03/15/2017. FINDINGS: There is no fracture or dislocation. The soft tissues are normal. There is a right hip total arthroplasty which appears satisfactory. The left hip is grossly normal. There is no lytic or blastic lesion. There are degenerative changes of the lower lumbar spine. IMPRESSION: 1. Satisfactory postoperative appearance of the right hip. 2. Grossly normal appearance of the left hip. 3. Degenerative changes of the lower lumbar spine. RPTAT: QQ .Travis Vargas MD, MD Date Time Electronically viewed and signed by .Travis Vargas MD, on 04/12/2017 16:39 .R/
== END | disposition home or self-care (01) ==
LOC: HKI 13:12
PROVIDERS: ATTEND Orthopaedic Surgery
DX: Z47.1 Aftercare following joint replacement surgery (principal); M16.11 Unilateral primary osteoarthritis, right hip; Z96.641 Presence of right artificial hip joint
CPT/HCPCS: 73502